=== PATIENT | male | born 1940 | race Caucasian/White ===

== ENCOUNTER 2018-02-05 06:17 | Day surgery (SDC) | payer MEDICARE ==
[2018-01-31 10:19] VITALS: BMI 33.0
[~2018-02-05 06:17] MED LIST: SODIUM CHLORIDE 0.9% 1,000 ML in EMPTY BAG 1 BAG IV ONE
[2018-02-05 06:49] VITALS: TEMP 98.4
[2018-02-05] MEDS ORDERED: LISINOPRIL 20 MG TAB PO STA (07:02)
[2018-02-05] MEDS ORDERED: POTASSIUM CHLORIDE ER 20 MEQ TAB.ER PO STA (07:02)
[2018-02-05] MEDS ORDERED: METOPROLOL TARTRATE 50 MG TAB PO STA (07:02)
[2018-02-05] MEDS ORDERED: CARBIDOPA-LEVODOPA 25-100 MG 1 EACH TAB PO STA (07:02)
[2018-02-05] MEDS ORDERED: CLOPIDOGREL 75 MG TAB PO STA (07:02)
[2018-02-05 07:10] LABS: Basophils % (A) 0 %; Eosinophils # (A) 0.2 k/uL (0-0.7); Eosinophils % (A) 2 %; HCT 32.6 % (39.0-53.0); HGB 10.8 gm/dL (13.0-17.5); Lymphocytes # (A) 2.3 k/uL (1.0-4.8); Lymphocytes % (A) 30 %; MCH 29.5 pg (25.0-35.0); MCHC 33.2 g/dL (31.0-37.0); MCV 88.9 fL (80.0-100.0); Mean Platelet Volume 8.3; Monocytes # (A) 0.5 k/uL (0-1.0); Monocytes % (A) 7 %; Neutrophils # (A) 4.5 k/uL (1.3-7.7); Neutrophils % (A) 58 %; Platelet Count 191 k/uL (150-450); RBC 3.66 m/uL (4.30-5.90); RDW 14.8 % (11.5-15.5); WBC 7.8 k/uL (3.8-10.6)
[2018-02-05] MEDS ORDERED: LISINOPRIL 2.5 MG TAB PO STA (07:11)
[2018-02-05] MEDS ORDERED: ASPIRIN 325 MG TAB ONE (07:16)
[2018-02-05 07:42] LABS: Glucose,Whole Blood 127 mg/dL (75-99)
[2018-02-05 09:21] LABS: Calcium 8.8 mg/dL (8.4-10.2); Potassium 5.4 mmol/L (3.5-5.1)
[2018-02-05] MEDS ORDERED: MIDAZOLAM 2 MG/2 ML VIAL IVP ONE (10:48)
[2018-02-05] MEDS ORDERED: LIDOCAINE 2% SYG (PF) 100 MG/5 ML MISCELLANE ONE (10:52)
[2018-02-05] MEDS ORDERED: IOPAMIDOL-370 100ML BTL INJ ONE (11:20)
[2018-02-05] MEDS ORDERED: SODIUM CHLORIDE 0.9% 1,000 ML IV SCH (11:30)
[2018-02-05 12:53] VITALS: RESP 18
--- NOTE | 2018-02-05 12:55 | IR ---
EXAMINATION TYPE: IR angio extremity LT DATE OF EXAM: 02/05/2018 COMPARISON: NONE HISTORY: Peripheral vascular occlusive disease. Fluoroscopy was provided to the referring clinician. See dictated report from cardiology.
--- NOTE | 2018-02-05 13:30 | LTR ---
DATE OF SERVICE: February 05, 2018 Dear Nathan: Mr. Herson Ortiz underwent left leg angiogram and that revealed critical disease involving the left popliteal artery. I will schedule the patient to undergo a ACCOUNTS PAYABLE SPECIALIST of the left popliteal. Thank you for allowing me to participate in his care and please do not hesitate to call if you have any questions or concerns. Sincerely, LAYNE / REANNA: [phone] /
--- NOTE | 2018-02-05 15:15 | AN ---
ANGIOGRAPHY REPORT DATE OF SERVICE: February 05, 2018 PERFORMING PHYSICIAN: Elder Giles MD, supervisor electronics assembly. PROCEDURE PERFORMED: 1. An abdominal aortogram. 2. Left lower extremity runoff. 3. Selective left SFA and left vzjcq-maz-qlgi angiogram. INDICATION: This is a pleasant 77-year-old gentleman with history of peripheral arterial disease who underwent in the past, balloon angioplasty of the right SFA and he underwent right llvmo-uyu-mrqm amputation. Lately, he has been followed by Dr. Cerrato who diagnosed the patient with critical limb ischemia with nonhealing ulcer on the left malone. The patient was brought today to undergo left leg angiogram. APPROACH: Right common femoral artery. COMPLICATION: None. LEVEL OF SEDATION: Moderate with sedation length of 33 minutes. PROCEDURE DESCRIPTION: After obtaining an informed consent, the patient was brought to the cardiac laborer tanbark. The right common femoral artery was cannulated using micropuncture technique, the micropuncture wire passed easily then I placed a 5-Lithuanian sheath in the right common femoral artery. After that, I did an abdominal aortogram using 5-Lithuanian pigtail catheter. Subsequently I did select the left leg and I placed a 4-Lithuanian catheter in the left SFA where I did left leg angiogram. The procedure was completed without any complication. SELECTIVE PERIPHERAL ANGIOGRAM: 1. The abdominal aorta appeared to be angiographically normal. It bifurcates into right and left common iliac arteries. 2. The left common iliac artery, left external iliac artery, and left common femoral arteries are angiographically normal. 3. The SFA. The left SFA appeared to have mild to moderate disease only. 4. The left popliteal: The left popliteal has diffuse disease up to about 80% to 90%. 5. Left radfo-teb-jspl: The only vessel below the knee, I was able to opacify is the left popliteal, left peroneal, which appeared to have moderate to severe disease in the proximal portion. The AT and PT on the left side are occluded. CONCLUSION: 1. He has severe disease involving the left popliteal artery. 2. Severe mciwb-wio-mfzj disease with only one vessel runoff with peroneal and occluded AT and PT. POSTPROCEDURE MANAGEMENT: BASE LOADER atherectomy and BASE LOADER of the left popliteal with possible BASE LOADER of the left peroneal as well. MMODL / IJN: [id number] /
[2018-02-05 15:39] VITALS: BP 167/72; PULSE 55
== END 2018-02-05 17:04 | disposition home or self-care (01) ==
LOC: CATHCVL 06:17
PROVIDERS: ATTEND Internal Medicine Interventional Cardiology
DX: I70.248 Atherosclerosis of native arteries of left leg with ulceration of other part of lower leg (principal); E11.622 Type 2 diabetes mellitus with other skin ulcer; L97.829 Non-pressure chronic ulcer of other part of left lower leg with unspecified severity; E11.22 Type 2 diabetes mellitus with diabetic chronic kidney disease; N18.4 Chronic kidney disease, stage 4 (severe); Z89.511 Acquired absence of right leg below knee; I25.10 Atherosclerotic heart disease of native coronary artery without angina pectoris; I38 Endocarditis, valve unspecified; E78.5 Hyperlipidemia, unspecified; G20 Parkinson's disease; Z79.02 Long term (current) use of antithrombotics/antiplatelets; Z79.82 Long term (current) use of aspirin; Z79.4 Long term (current) use of insulin; Z79.899 Other long term (current) drug therapy
CPT/HCPCS: 36247; 75625; 75716; 80048; 85025; C1769 ×6; C1894; J2250; J2001; Q9967

== ENCOUNTER 2018-03-07 08:59 | Day surgery (SDC) | payer MEDICARE ==
[2018-03-03 14:29] VITALS: BMI 33.0
[~2018-03-07 08:59] MED LIST changes: +ALPRAZolam 0.25 MG TAB PO PRN; +ASPIRIN 325 MG TAB PO STA
[2018-03-07 10:06] VITALS: BP 166/81; PULSE 71; RESP 16; TEMP 98
[2018-03-07 10:06] LABS: Basophils % (A) 0 %; Eosinophils # (A) 0.2 k/uL (0-0.7); Eosinophils % (A) 2 %; HCT 35.2 % (39.0-53.0); HGB 11.2 gm/dL (13.0-17.5); Lymphocytes % (A) 24 %; MCH 28.4 pg (25.0-35.0); MCHC 31.8 g/dL (31.0-37.0); MCV 89.3 fL (80.0-100.0); Mean Platelet Volume 8.5; Monocytes # (A) 0.6 k/uL (0-1.0); Monocytes % (A) 8 %; Neutrophils % (A) 62 %; Platelet Count 199 k/uL (150-450); RBC 3.94 m/uL (4.30-5.90); RDW 14.7 % (11.5-15.5); WBC 8.1 k/uL (3.8-10.6)
[2018-03-07] MEDS ORDERED: SODIUM CHLORIDE 0.9% 1,000 ML IV ONE (10:10)
[2018-03-07] MEDS ORDERED: INSULIN ASPART 100 UNIT/ML 1 ML 10 ML VIAL SQ ONE (10:20)
[2018-03-07 10:21] LABS: Calcium 8.8 mg/dL (8.4-10.2)
[2018-03-07 10:34] LABS: Glucose,Whole Blood 269 mg/dL (75-99)
[2018-03-07] MEDS ORDERED: SODIUM POLYSTYRENE SULFONATE 15 GM/60 ML BOTTLE PO STA (10:42)
== END 2018-03-07 13:12 | disposition home or self-care (01) ==
LOC: CATHCVL 08:59
PROVIDERS: ATTEND Internal Medicine Interventional Cardiology
DX: I99.8 Other disorder of circulatory system (principal); E87.5 Hyperkalemia; Z53.8 Procedure and treatment not carried out for other reasons
CPT/HCPCS: 80048; 85025

== ENCOUNTER → 2018-03-08 | Outpatient (CLI) | payer MEDICARE | END | disposition home or self-care (01) | LOC: LABWHC1 10:48 | PROVIDERS: ATTEND Nurse Practitioner Family | DX: E87.5 Hyperkalemia (principal) | CPT/HCPCS: 36415; 84132 ==

== ENCOUNTER 2018-04-07 09:10 | Day surgery (SDC) | payer MEDICARE ==
[~2018-04-07 09:10] MED LIST changes: -ALPRAZolam 0.25 MG TAB PO PRN; +ASPIRIN 325 MG TAB PO SCH; -ASPIRIN 325 MG TAB PO STA; -SODIUM CHLORIDE 0.9% 1,000 ML in EMPTY BAG 1 BAG IV ONE
[2018-04-07] MEDS ORDERED: SODIUM CHLORIDE 0.9% 1,000 ML IV ONE (09:30)
[2018-04-07 09:50] LABS: Glucose,Whole Blood 121 mg/dL (75-99)
[2018-04-07] MEDS ORDERED: SODIUM CHLORIDE 0.9% 1,000 ML in EMPTY BAG 1 BAG IV ONE (10:00)
[2018-04-07] MEDS ORDERED: CARBIDOPA-LEVODOPA 25-100 MG 1 EACH TAB PO STA (10:00)
[2018-04-07] MEDS: METOPROLOL TARTRATE 50 MG TAB PO STA ×2 (10:07→16:55)
[2018-04-07] MEDS ORDERED: LIDOCAINE 2% INJ 20 MG/ML SQ ONE (11:32)
[2018-04-07] MEDS ORDERED: MIDAZOLAM 2 MG/2 ML VIAL IVP ONE (11:33)
[2018-04-07] MEDS ORDERED: HEPARIN SODIUM 1,000 UN/ML (10ML VL) IV ONE ×2 (11:35→12:24)
[2018-04-07] MEDS ORDERED: fentaNYL (PF) 50 MCG/ML 2 ML AMP IVP ONE (11:50)
[2018-04-07] MEDS ORDERED: NITROGLYCERIN 1000MCG/10ML SYRINGE INTRAARTER ONE (12:28)
[2018-04-07] MEDS ORDERED: niCARdipine Syringe (1,000 mcg/10 mL) INTRAARTER ONE (12:28)
[2018-04-07] MEDS ORDERED: CLOPIDOGREL 75 MG TAB PO ONE (12:43)
[2018-04-07] MEDS ORDERED: IOPAMIDOL-250 100ML BTL INTRAARTER ONE (12:44)
[2018-04-07] MEDS ORDERED: SODIUM CHLORIDE 0.9% 1,000 ML IV SCH (12:45)
--- NOTE | 2018-04-07 14:22 | LTR ---
DATE OF SERVICE: 04/07/2018. Dear Dr. Jimenez: Mr. Herson Ortiz underwent successful atherectomy and balloon angioplasty of the left popliteal artery with good angiographic results and without any complication. I want to thank you for allowing us to participate in his care and please do not hesitate to call if you have any question or concerns. Sincerely, LAYNE / FATEMEHN: [phone] /
--- NOTE | 2018-04-07 14:37 | AN ---
ANGIOGRAPHY REPORT . DATE OF SERVICE: 04/07/2018 PERFORMING PHYSICIAN: Elder Giles MD. PROCEDURE PERFORMED: 1. Selective left xjbek-fjf-qzfd angiogram. 2. Selective left popliteal angiogram. 3. Selective left SFA angiogram. 4. Selective right common femoral artery angiogram. 5. Successful atherectomy of the left popliteal using the TurboHawk device with extraction of plaque. 6. Successful balloon angioplasty of the left popliteal using 4.0 x 60 mm drug-coated balloon with good angiographic results and reduction of stenosis from 90% to 0% and without any complication. INDICATION: This is a pleasant 77-year-old gentleman who sees Dr. Cerrato as well as I did see him in the past, who was struggling with critical limb ischemia of the left foot. He underwent a peripheral angiogram and that showed severe peripheral arterial disease, with critical left popliteal and severe hovso-ubt-mxvj disease with occluded AT and PT. He was brought today to undergo an intervention of the left popliteal. APPROACH: Right common femoral artery. COMPLICATION: None. LEVEL OF SEDATION: Moderate with sedation length of 1 hour and 2 minutes. PROCEDURE DESCRIPTION: After obtaining an informed consent, the patient was brought to cardiac veterinary laboratory diagnostician. The right common femoral artery was cannulated using micropuncture technique, the micropuncture wire passed easily. Then I placed a 6-Martiniquais sheath 11 cm in the right common femoral artery. At that point, anticoagulation was initiated using heparin and the patient was given a total of 9000 units of heparin IV. Subsequently I did select the left SFA using an 0.035 Glidewire with a 5-Martiniquais rim catheter. I attempted selecting the left SFA using an 0.035 advantage Glidewire, but because of the bifurcation of the aorta was so acute, I could not advance the [place] Advantage because of its stiffness and I was able to advance an 035 regular Glidewire. After that, I did exchange my 0.035 Glidewire into an 0.035 advantage Glidewire, Quick-Cross catheter. After that, I did exchange my 11 cm sheath into 55 cm 6- Martiniquais Raabe the sheath and the 6-Martiniquais Raabe sheath tip was positioned in the left in the left proximal SFA. I did selective left tgkas-hhd-lxlr angiogram, selective left popliteal angiogram and selective left SFA angiogram. It did revealed critical left popliteal disease with severe dzvgg-amm-cwko disease as well. At that point, I was attempted crossing the lesion in the left popliteal using [address] wire and I was unable. Then 014 whisper J and I was unable. Then I was able to cross it using an 018 wakefield tip Glidewire with the backup support of .018 CXI catheter. Subsequently I did exchange my 018 wire into 0.014 wire which was the whisper wire using an 018 CXI catheter. After that I did atherectomy of the left popliteal using the TurboHawk device with extraction of plaque. After that I did balloon angioplasty using 4.0 x 60 mm drug- coated balloon which was prepped and advanced over the wire then it was inflated under 12 atmospheres for 1 minute. The following angiogram showed excellent angiographic results and the procedure was completed without any complication. POSTPROCEDURE MANAGEMENT: 1. Dual anti-platelet therapy. 2. Risk factors modifications. 3. Follow up with the patient. MMSANDY / IJN: [id number] /
[2018-04-07] MEDS ORDERED: hydrALAZINE HCL 20 MG/ML 1 ML VIAL IVP PRN (15:36)
[2018-04-07 16:08] VITALS: BMI 33.8
[2018-04-07] MEDS ORDERED: ATROPINE SULFATE 0.1 MG/ML 10ML SYRINGE ONE (17:02)
[2018-04-07] MEDS: MORPHINE SULFATE 2 MG/ML SYRINGE IVP PRN ×2 (18:33→22:19)
[2018-04-07] MEDS: INSULIN NPH/REG INSULIN 70/30 300 UNIT/3 ML VIAL SQ SCH (19:55)
[2018-04-07 20:47] LABS: Glucose,Whole Blood 136 mg/dL (75-99)
[2018-04-07] MEDS ORDERED: ATORVASTATIN 80 MG TAB PO SCH (21:00)
[2018-04-07] MEDS: CARBIDOPA-LEVODOPA 25-100 MG 1 EACH TAB PO SCH ×2 (21:32→21:36)
[2018-04-07] MEDS: GABAPENTIN 400 MG CAP PO SCH ×2 (21:33→21:36)
[2018-04-07] MEDS: TORSEMIDE 20 MG TAB PO SCH (21:33)
[2018-04-07 22:09] VITALS: RESP 18
[2018-04-08 06:16] LABS: Glucose,Whole Blood 180 mg/dL (75-99)
[2018-04-08] MEDS: INSULIN NPH/REG INSULIN 70/30 300 UNIT/3 ML VIAL SQ SCH (06:47)
[2018-04-08 07:06] LABS: Potassium 5.4 mmol/L (3.5-5.1)
[2018-04-08 08:39] LABS: Basophils % (A) 0 %; Eosinophils # (A) 0.1 k/uL (0-0.7); Eosinophils % (A) 2 %; HCT 35.1 % (39.0-53.0); HGB 11.7 gm/dL (13.0-17.5); Lymphocytes # (A) 1.6 k/uL (1.0-4.8); Lymphocytes % (A) 19 %; MCH 28.9 pg (25.0-35.0); MCHC 33.3 g/dL (31.0-37.0); MCV 86.7 fL (80.0-100.0); Mean Platelet Volume 10.2; Monocytes # (A) 0.7 k/uL (0-1.0); Monocytes % (A) 8 %; Neutrophils # (A) 5.7 k/uL (1.3-7.7); Neutrophils % (A) 68 %; Platelet Count 173 k/uL (150-450); RBC 4.04 m/uL (4.30-5.90); RDW 14.7 % (11.5-15.5); WBC 8.4 k/uL (3.8-10.6)
[2018-04-08] MEDS ORDERED: ASPIRIN 325 MG TAB PO SCH (09:00)
[2018-04-08] MEDS ORDERED: FAMOTIDINE 20 MG TAB PO SCH (09:00)
[2018-04-08] MEDS ORDERED: METOPROLOL TARTRATE 50 MG TAB PO SCH (09:00)
[2018-04-08] MEDS ORDERED: DOCUSATE 100 MG CAP PO SCH (09:00)
[2018-04-08] MEDS ORDERED: CLOPIDOGREL 75 MG TAB PO SCH (09:00)
[2018-04-08] MEDS: GABAPENTIN 400 MG CAP PO SCH (09:05)
[2018-04-08] MEDS: TORSEMIDE 20 MG TAB PO SCH (09:05)
[2018-04-08] MEDS: CARBIDOPA-LEVODOPA 25-100 MG 1 EACH TAB PO SCH (09:05)
--- NOTE | 2018-04-08 09:23 | DS ---
DISCHARGE SUMMARY ADMISSION DATE: April 07, 2018 DISCHARGE DATE: April 08, 2018 BRIEF HISTORY: This is a pleasant 77-year-old gentleman who was diagnosed with critical limb ischemia and nonhealing ulcer involving the left malone. He underwent a peripheral angiogram a few weeks ago and that revealed critical lesion involving the left popliteal. He was admitted yesterday and underwent successful atherectomy and balloon angioplasty of the left popliteal with reduction of stenosis from 90% to 0%. I did perform a drug coated balloon on him. The procedure was performed from the right groin. The right groin is bruised with a very small hematoma. The patient is going to be discharged home on dual anti-platelet therapy and statin and I will follow up with him in a week in the office. MMSANDY / REANNA: [phone] /
[2018-04-08 09:36] VITALS: BP 134/61; PULSE 68; TEMP 96.3
[2018-04-08] MEDS ORDERED: FOLIC ACID 1 MG TAB PO SCH (12:00)
== END 2018-04-08 11:39 | disposition home or self-care (01) ==
LOC: CATHCVL 09:10 → 6SEL 12:32 → CATHCVL 04-08 11:39
PROVIDERS: ATTEND Internal Medicine Interventional Cardiology
DX: E11.51 Type 2 diabetes mellitus with diabetic peripheral angiopathy without gangrene (principal); I99.8 Other disorder of circulatory system; E78.5 Hyperlipidemia, unspecified; Z79.02 Long term (current) use of antithrombotics/antiplatelets; Z79.4 Long term (current) use of insulin; Z79.82 Long term (current) use of aspirin; Z79.899 Other long term (current) drug therapy
CPT/HCPCS: 37225; 85347; 80048; 85025; C1894 ×2; C1769 ×7; C1887; C1714; C2623; J2001; J2250; J0360; J3010; J2270; J1644; Q9966

== ENCOUNTER 2018-11-19 05:35 | Inpatient (IN) | payer MEDICARE ==
--- NOTE | 2018-11-19 06:19 | ED ---
Abdominal Pain HPI - General Chief Complaint: Abdominal Pain Stated Complaint: Abdominal Pain Time Seen by Provider: 11/19/18 05:57 Source: patient, EMS Mode of arrival: EMS Limitations: no limitations - History of Present Illness MD Complaint: abdominal pain Onset/Timin -: days(s) Location: epigastric Radiation: none Migration to: no migration Severity: moderate Quality: dull Consistency: constant Improves With: nothing Worsens With: nothing Associated Symptoms: denies other symptoms - Related Data Home Medications Medication Instructions Recorded Confirmed Aspirin 325 mg PO DAILY 07/29/15 07/15/18 Atorvastatin [Lipitor] 80 mg PO HS 07/29/15 07/15/18 Carbidopa-Levodopa 25-100 mg 1 each PO TID 07/29/15 07/15/18 [Sinemet 25-100 mg] Clopidogrel Bisulfate [Clopidogrel] 75 mg PO QAM 07/29/15 07/15/18 Gabapentin 400 mg PO TID 07/29/15 07/15/18 Metoprolol Tartrate 50 mg PO QAM 07/29/15 07/15/18 Insulin NPH Hum/Reg Insulin Hm 36 unit SQ AC-BID 01/31/18 07/15/18 [NovoLIN 70-30 100 UNIT/ML VIAL] Torsemide [Demadex] 20 mg PO BID 01/31/18 07/15/18 Docusate [Colace] 100 mg PO DAILY 04/07/18 07/15/18 Famotidine [Pepcid] 20 mg PO DAILY 04/07/18 07/15/18 Folic Acid 1 mg PO DAILY 04/07/18 07/15/18 Allopurinol [Zyloprim] 100 mg PO DAILY 07/08/18 07/15/18 Carbidopa-Levodopa 25-100 mg 1 each PO TID 07/08/18 07/15/18 [Sinemet 25-100] Clopidogrel [Plavix] 75 mg PO DAILY 07/08/18 07/15/18 Ergocalciferol (Vitamin D2) 50,000 unit PO QMONTH 07/08/18 07/15/18 [Vitamin D2] Multivitamin [Men's Multi-Vitamin] 1 each PO DAILY 07/08/18 07/15/18 metFORMIN HCL [Glucophage] 500 mg PO DAILY 07/08/18 07/15/18 Allergies Allergy/AdvReac Type Severity Reaction Status Date / Time No Known Allergies Allergy Verified 07/15/18 13:39 Review of Systems ROS Statement: Those systems with pertinent positive or pertinent negative responses have been documented in the HPI. ROS Other: All systems not noted in ROS Statement are negative. Past Medical History Past Medical History: CVA/TIA, Diabetes Mellitus, Hyperlipidemia, Hypertension, Musculoskeletal Disorder, Neurologic Disorder, Renal Disease, Vascular Disorder Additional Past Medical History / Comment(s): CVA-pt states no deficits, TIA-R ocular nerve palsy, R third nerve palsy, parkinson's,. HIGH POTASSIUM 03/07/18- POTASSIUM PILL DISCONTINUED History of Any Multi-Drug Resistant Organisms: None Reported Past Surgical History: Coronary Bypass/CABG, Heart Catheterization, Tonsillectomy Additional Past Surgical History / Comment(s): colonoscopy, bilateral cataract removal, right below knee amputation, valve replacement & triple bypass in [facility] 4 yrs. ago,aortogram Past Anesthesia/Blood Transfusion Reactions: No Reported Reaction Additional Past Anesthesia/Blood Transfusion Reaction / Comment(s): no hx blood transfusion Past Psychological History: No Psychological Hx Reported Smoking Status: Never smoker - Past Family History Father Family Medical History: Coronary Artery Disease (CAD) Additional Family Medical History / Comment(s): Father had CABG. He at age 93yrs. Mother Family Medical History: Diabetes Mellitus Additional Family Medical History / Comment(s): Mother at age 83 yrs. General Exam Limitations: no limitations Course Vital Signs 11/19/18 11/19/18 05:39 06:44 Temperature 99.5 F Pulse Rate 93 85 Respiratory 18 18 Rate Blood Pressure 166/108 148/67 O2 Sat by Pulse 94 L 96 Oximetry Medical Decision Making - Lab Data Result diagrams: 11/19/18 05:45 11/19/18 05:45 Lab Results 11/19/18 11/19/18 11/19/18 Range/Units 05:45 05:45 05:45 WBC 13.2 H (3.8-10.6) k/uL RBC 3.93 L (4.30-5.90) m/uL Hgb 11.8 L (13.0-17.5) gm/dL Hct 36.2 L (39.0-53.0) % MCV 92.1 (80.0-100.0) fL MCH 30.0 (25.0-35.0) pg MCHC 32.5 (31.0-37.0) g/dL RDW 14.8 (11.5-15.5) % Plt Count 205 (150-450) k/uL Neutrophils % 82 % Lymphocytes % 10 % Monocytes % 5 % Eosinophils % 2 % Basophils % 0 % Neutrophils # 10.8 H (1.3-7.7) k/uL Lymphocytes # 1.3 (1.0-4.8) k/uL Monocytes # 0.7 (0-1.0) k/uL Eosinophils # 0.2 (0-0.7) k/uL Basophils # 0.0 (0-0.2) k/uL Sodium 142 (137-145) mmol/L Potassium 5.0 (3.5-5.1) mmol/L Chloride 107 (98-107) mmol/L Carbon Dioxide 25 (22-30) mmol/L Anion Gap 10 mmol/L BUN 17 (9-20) mg/dL Creatinine 1.42 H (0.66-1.25) mg/dL Est GFR (CKD-EPI)AfAm 54 (>60 ml/min/1.73 sqM) Est GFR (CKD-EPI)NonAf 47 (>60 ml/min/1.73 sqM) Glucose 184 H (74-99) mg/dL Plasma Lactic Acid Rey 1.6 (0.7-2.0) mmol/L Calcium 9.1 (8.4-10.2) mg/dL Total Bilirubin 0.7 (0.2-1.3) mg/dL AST 15 L (17-59) U/L ALT 20 L (21-72) U/L Alkaline Phosphatase 135 H (38-126) U/L Troponin I (0.000-0.034) ng/mL NT-Pro-B Natriuret Pep pg/mL Total Protein 6.6 (6.3-8.2) g/dL Albumin 3.7 (3.5-5.0) g/dL Amylase <30 L (30-110) U/L Lipase 86 (23-300) U/L 11/19/18 11/19/18 Range/Units 05:45 05:45 WBC (3.8-10.6) k/uL RBC (4.30-5.90) m/uL Hgb (13.0-17.5) gm/dL Hct (39.0-53.0) % MCV (80.0-100.0) fL MCH (25.0-35.0) pg MCHC (31.0-37.0) g/dL RDW (11.5-15.5) % Plt Count (150-450) k/uL Neutrophils % % Lymphocytes % % Monocytes % % Eosinophils % % Basophils % % Neutrophils # (1.3-7.7) k/uL Lymphocytes # (1.0-4.8) k/uL Monocytes # (0-1.0) k/uL Eosinophils # (0-0.7) k/uL Basophils # (0-0.2) k/uL Sodium (137-145) mmol/L Potassium (3.5-5.1) mmol/L Chloride (98-107) mmol/L Carbon Dioxide (22-30) mmol/L Anion Gap mmol/L BUN (9-20) mg/dL Creatinine (0.66-1.25) mg/dL Est GFR (CKD-EPI)AfAm (>60 ml/min/1.73 sqM) Est GFR (CKD-EPI)NonAf (>60 ml/min/1.73 sqM) Glucose (74-99) mg/dL Plasma Lactic Acid Rey (0.7-2.0) mmol/L Calcium (8.4-10.2) mg/dL Total Bilirubin (0.2-1.3) mg/dL AST (17-59) U/L ALT (21-72) U/L Alkaline Phosphatase (38-126) U/L Troponin I 0.014 (0.000-0.034) ng/mL NT-Pro-B Natriuret Pep 5830 pg/mL Total Protein (6.3-8.2) g/dL Albumin (3.5-5.0) g/dL Amylase (30-110) U/L Lipase (23-300) U/L - EKG Data EKG shows normal: sinus rhythm (Rate 85 bpm), axis (normal), intervals (ID interval 252 ms, prolonged consistent with first-degree AV block. QRS duration 122 ms, prolonged, consistent with intraventricular conduction delay. QTC 461 ms, normal), QRS complexes (Intraventricular conduction delay) Interpretation: nonspecific ST-T wave changes Disposition Clinical Impression: Acute exacerbation of CHF (congestive heart failure) Disposition: ADMITTED IP TO THIS HOSP Condition: Poor Is patient prescribed a controlled substance at d/c from ED?: No Referrals: Nathan Jimenez DO [Primary Care Provider] - 1-2 days
[2018-11-19] MEDS ORDERED: MORPHINE SULFATE 4 MG/ML SYRINGE IV STA (06:20)
[2018-11-19 06:21] LABS: Basophils % (A) 0 %; Eosinophils # (A) 0.2 k/uL (0-0.7); Eosinophils % (A) 2 %; HCT 36.2 % (39.0-53.0); HGB 11.8 gm/dL (13.0-17.5); Lymphocytes # (A) 1.3 k/uL (1.0-4.8); Lymphocytes % (A) 10 %; MCHC 32.5 g/dL (31.0-37.0); MCV 92.1 fL (80.0-100.0); Mean Platelet Volume 8.5; Monocytes # (A) 0.7 k/uL (0-1.0); Monocytes % (A) 5 %; Neutrophils # (A) 10.8 k/uL (1.3-7.7); Neutrophils % (A) 82 %; Platelet Count 205 k/uL (150-450); RBC 3.93 m/uL (4.30-5.90); RDW 14.8 % (11.5-15.5); WBC 13.2 k/uL (3.8-10.6)
[2018-11-19 06:30] LABS: ALT 20 U/L (21-72); AST 15 U/L (17-59); Albumin 3.7 g/dL (3.5-5.0); Alkaline Phosphatase 135 U/L (38-126); Amylase <30 U/L (30-110); Anion Gap 10 mmol/L; Blood Urea Nitrogen 17 mg/dL (9-20); Calcium 9.1 mg/dL (8.4-10.2); Carbon Dioxide 25 mmol/L (22-30); Chloride 107 mmol/L (98-107); Glucose 184 mg/dL (74-99); Lipase 86 U/L (23-300); Sodium 142 mmol/L (137-145); Total Bilirubin 0.7 mg/dL (0.2-1.3); Total Protein 6.6 g/dL (6.3-8.2)
[2018-11-19] MEDS: FUROSEMIDE 10 MG/ML 4 ML VIAL IV SCH ×2 (07:41→20:49)
--- NOTE | 2018-11-19 07:48 | CT ---
EXAMINATION TYPE: CT abdomen pelvis wo con DATE OF EXAM: 11/19/2018 COMPARISON: None HISTORY: Abd pain CT DLP: 772.3 mGycm Automated exposure control for dose reduction was used. TECHNIQUE: Helical acquisition of images was performed from the lung bases through the pelvis. FINDINGS: LUNG BASES: Heart is enlarged and there is coronary artery calcification. Subsegmental changes involv ing the lung bases suggestive of atelectasis. Suggestion of an epicardial. LIVER/GB: Gallbladder is prominent in size correlate for gallbladder hydrops. PANCREAS: No significant abnormality is seen. SPLEEN: No significant abnormality is seen. ADRENALS: No significant abnormality is seen. KIDNEYS: There is cortical loss involving the kidneys correlate for chronic renal disease. No hydrone phrosis or nephrolithiasis. ADENOPATHY: None visualized. OSSEOUS STRUCTURES: Hypertrophic and degenerative change of bowel. BOWEL: Bowel gas pattern nonspecific with no diagnostic obstruction. Lack of oral contrast limits as sessment of bowel. Could not exclude a degree of wall thickening involving stomach. There appears to be a large duodenal diverticulum involving the third portion duodenum. OTHER: Atherosclerotic change of the vasculature. Aorta of normal caliber. Bladder wall is thickened correlate for cystitis. Small fat-containing bilateral inguinal hernias. IMPRESSION: 1. Large duodenal diverticulum third portion duodenum. 2. Chronic medical renal disease 3. Cardiomegaly, coronary artery calcification and basilar atelectasis or scar favored over infiltrat e 4. Correlate for cystitis. 5. gallbladder hydrops without evidence of gallstone. Could not exclude a small amount of pericholecy stic fluid. Recommend ultrasound. 6. gastric wall thickening likely related to incomplete distention. Correlate clinically to exclude m ild gastritis.
[2018-11-19] MEDS ORDERED: METOPROLOL TARTRATE 50 MG TAB PO SCH (09:00)
[2018-11-19] MEDS ORDERED: CLOPIDOGREL 75 MG TAB PO SCH (09:00)
--- NOTE | 2018-11-19 09:37 | US ---
EXAMINATION TYPE: US abdomen limited DATE OF EXAM: 11/19/2018 COMPARISON: CT 11/19/2018 CLINICAL HISTORY: attention RUQ. Difficult and limited exam due to overlying bowel, patient body habi tus, and patient's inability to cooperate for exam. Could not hold his breath EXAM MEASUREMENTS: Liver Length: 15.5 cm Gallbladder Wall: 0.6 cm CBD: 0.5 cm Right Kidney: 9.8 x 5.4 x 4.7 cm Pancreas: Obscured by bowel gas Liver: Heterogeneous. Difficult and limited visualization Gallbladder: Hydropic. Small amount of pericholecystic fluid visualized Evidence for sonographic Joshua's sign: No CBD: wnl as visualized, limited due to bowel gas Right Kidney: Nodular contour IMPRESSION: 1. The gallbladder is hydropic with a small amount of pericholecystic fluid. Gallbladder wall measure s 6 mm. Correlate for cholecystitis. 2. Liver is heterogeneous correlate for hepatic steatosis or hepatitis.
[2018-11-19 10:11] LABS: Appearance,Urine Clear (Clear); Bilirubin,Urine Negative (Negative); Blood,Urine Negative (Negative); Color,Urine Light Yellow; Glucose,Urine (UA) Negative (Negative); Ketones,Urine Negative (Negative); Leukocyte Esterase,Urine Negative (Negative); Nitrite,Urine Negative (Negative); Protein,Urine Trace (Negative); Specific Gravity,Urine 1.009 (1.001-1.035); Urobilinogen,Urine <2.0 mg/dL (<2.0)
[2018-11-19] MEDS: INSULN ASP PRT/INSULIN ASPART 100 UNIT/ML 10 ML VIAL SQ SCH ×2 (11:39→19:27)
[2018-11-19] MEDS: ALLOPURINOL 100 MG TAB PO SCH (11:39)
[2018-11-19] MEDS: CLOPIDOGREL 75 MG TAB PO SCH (11:39)
[2018-11-19] MEDS: ASPIRIN 325 MG TAB PO SCH (11:39)
[2018-11-19] MEDS: GABAPENTIN 400 MG CAP PO SCH ×3 (11:40→20:47)
[2018-11-19] MEDS: metFORMIN 500 MG TAB PO SCH (11:40)
[2018-11-19] MEDS: TORSEMIDE 20 MG TAB PO SCH ×2 (11:40→20:44)
[2018-11-19] MEDS: FAMOTIDINE 20 MG TAB PO SCH (11:40)
[2018-11-19] MEDS: DOCUSATE 100 MG CAP PO SCH (11:40)
[2018-11-19 16:19] LABS: Glucose,Whole Blood 64 mg/dL (75-99)
[2018-11-19 17:36] LABS: Glucose,Whole Blood 83 mg/dL (75-99)
[2018-11-19] MEDS ORDERED: HEPARIN SODIUM,PORCINE 5,000 UNIT/ML 1 ML VIAL IV PRN (20:27)
[2018-11-19] MEDS: NITROGLYCERIN OINT 1 INCH/GM PACKET TOPICAL SCH ×2 (20:44→23:13)
[2018-11-19] MEDS: ATORVASTATIN 80 MG TAB PO SCH (20:47)
[2018-11-19 20:58] LABS: Glucose,Whole Blood 113 mg/dL (75-99)
[2018-11-19 21:13] LABS: Basophils % (A) 0 %; Eosinophils # (A) 0.2 k/uL (0-0.7); Eosinophils % (A) 2 %; HCT 31.9 % (39.0-53.0); HGB 10.5 gm/dL (13.0-17.5); Lymphocytes # (A) 1.2 k/uL (1.0-4.8); Lymphocytes % (A) 12 %; MCH 30.5 pg (25.0-35.0); MCV 92.6 fL (80.0-100.0); Mean Platelet Volume 8.6; Monocytes # (A) 0.6 k/uL (0-1.0); Monocytes % (A) 6 %; Neutrophils # (A) 8.1 k/uL (1.3-7.7); Neutrophils % (A) 79 %; Platelet Count 187 k/uL (150-450); RBC 3.44 m/uL (4.30-5.90); RDW 14.5 % (11.5-15.5); WBC 10.3 k/uL (3.8-10.6)
--- NOTE | 2018-11-19 21:18 | P.HPIM ---
History of Present Illness H&P Date: 11/19/18 Chief Complaint: Abdominal pain and chest pain Patient is a 78-year-old male with a known history of diabetes type 2, peripheral vascular disease, right BKA, coronary artery disease history of valve replacement and triple bypass in [facility] 4 years ago, hypertension, hype rlipidemia, chronic renal disease and other multiple medical problems including history obesity morbid and see ER with complaints of chest pain acting up again. Pain is mainly in the midsternal and epigastric region. Patient felt very weak and could not stand up. Patient also having increased left lower activity swelling as well. Patient also was having worsening shortness of breath which made him come to the hospital. Patient follows with Dr. Donald per his peripheral vascular disease. Otherwise patient denied any complaints of cough or sputum production. No fever chills. No recent illnesses otherwise. No nausea vomiting diarrhea. Patient is hard of hearing and is also poor historian. 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 Chronic renal disease. Cardiomegaly, coronary calcification and basilar atelectasis or scar favor over infiltrate. Correlate for cystitis. Gallbladder hydrops without evidence of gallstones. Gastric wall thickening likely related to incomplete distention. Correlate c linically for mild gastritis. Troponin 0.014 and 0.173 BNP 5830 WBC 13.2 UA negative Ultrasound of the abdomen showed gallbladder is hydropic with a small amount of pericholecystic fluid. Gallbladder wall measures 6 mm. Correlate for cholecystitis. Review of Systems Constitutional: Patient denies any fever or chills . No generalized weakness or weight loss. Abdomen: Patient denied nausea vomiting and diarrhea and abdominal pain. Cardiovascular: Patient does have chest pain and shortness of breath. Increased leg swelling.. Respiratory: patient denied any cough is from production. No shortness of breath Neurologic: Patient denied any numbness or tingling headache. Musculoskeletal: Patient denies any complaints of joint swelling or deformity. Skin: Negative Psychiatric: Negative Endocrine: No heat or cold intolerance. No recent weight gain. Genitourinary: No dysuria or hematuria. All other 14 point ROS negative except the above Past Medical History Past Medical History: CVA/TIA, Diabetes Mellitus, Hyperlipidemia, Hypertension, Musculoskeletal Disorder, Neurologic Disorder, Renal Disease, Vascular Disorder Additional Past Medical History / Comment(s): CVA-pt states no deficits, TIA-R ocular nerve palsy, R third nerve palsy, parkinson's,. HIGH POTASSIUM 03/07/18- POTASSIUM PILL DISCONTINUED History of Any Multi-Drug Resistant Organisms: None Reported Past Surgical History: Coronary Bypass/CABG, Heart Catheterization, Tonsillectomy Additional Past Surgical History / Comment(s): colonoscopy, bilateral cataract removal, right below knee amputation, valve replacement & triple bypass in [place] 4 yrs. ago,aortogram Past Anesthesia/Blood Transfusion Reactions: No Reported Reaction Additional Past Anesthesia/Blood Transfusion Reaction / Comment(s): no hx blood transfusion Past Psychological History: No Psychological Hx Reported Smoking Status: Never smoker - Past Family History Father Family Medical History: Coronary Artery Disease (CAD) Additional Family Medical History / Comment(s): Father had CABG. He at age 93yrs. Mother Family Medical History: Diabetes Mellitus Additional Family Medical History / Comment(s): Mother at age 83 yrs. Medications and Allergies Home Medications Medication Instructions Recorded Confirmed Type Aspirin 325 mg PO DAILY 07/29/15 11/19/18 History Atorvastatin [Lipitor] 80 mg PO HS 07/29/15 11/19/18 History Carbidopa-Levodopa 25-100 mg 1 tab PO TID 07/29/15 11/19/18 History [Sinemet 25-100 mg] Gabapentin 400 mg PO TID 07/29/15 11/19/18 History Metoprolol Tartrate 50 mg PO QAM 07/29/15 11/19/18 History Insulin NPH Hum/Reg Insulin Hm 50 unit SQ AC-BID 01/31/18 11/19/18 History [NovoLIN 70-30 100 UNIT/ML VIAL] Torsemide [Demadex] 20 mg PO BID 01/31/18 11/19/18 History Famotidine [Pepcid] 20 mg PO DAILY 04/07/18 11/19/18 History Allopurinol [Zyloprim] 100 mg PO DAILY 07/08/18 11/19/18 History Clopidogrel [Plavix] 75 mg PO DAILY 07/08/18 11/19/18 History Ergocalciferol (Vitamin D2) 50,000 unit PO Q30D 07/08/18 11/19/18 History [Vitamin D2] Multivitamin [Men's Multi-Vitamin] 1 each PO DAILY 07/08/18 11/19/18 History Calcitriol [Rocaltrol] 0.25 mcg PO Q7D 11/19/18 11/19/18 History Calcium Acetate [Phoslo] 667 mg PO DAILY 11/19/18 11/19/18 History Allergies Allergy/AdvReac Type Severity Reaction Status Date / Time No Known Allergies Allergy Verified 11/19/18 07:52 Physical Exam Vitals: Vital Signs Temp Pulse Resp BP Pulse Ox 11/19/18 10:00 125/98 11/19/18 08:50 84 18 135/60 93 L 11/19/18 08:40 95 17 135/60 94 L 11/19/18 08:30 87 16 152/78 94 L 11/19/18 08:20 98 17 152/78 94 L 11/19/18 07:40 96 17 142/90 95 11/19/18 06:44 85 18 148/67 96 11/19/18 05:39 99.5 F 93 18 166/108 94 L Intake and Output 11/18/18 11/19/18 11/19/18 22:59 06:59 14:59 Other: Weight 90.718 kg PHYSICAL EXAMINATION: Patient is lying in the bed comfortably, no acute distress, awake alert and oriented. Hard of hearing. HEENT: Normocephalic. Neck is supple. Pupils reactive. Nostrils clear. Oral cavity is moist. Ears reveal no drainage. Neck reveals no JVD, carotid bruits, or thyromegaly. CHEST EXAMINATION: Trachea is central. Symmetrical expansion. Bibasilar diminished air entry and scattered rhonchi. No wheezing.. CARDIAC: Normal S1, S2 with no gallops. No murmurs ABDOMEN: Soft. Bowel sounds normal. No organomegaly. No abdominal bruits. Extremities: Right BKA. Left leg 3+ edema. No clubbing or cyanosis Neurologically awake, alert, oriented x2-3 with well-coordinated movements. Hard of hearing. No focal deficits noted Skin: No rash or skin lesions. Psychiatric: Coperative. Nonsuicidal Musculoskeletal: No joint swelling or deformity. Normal range of motion. Results CBC & Chem 7: 11/19/18 05:45 11/19/18 05:45 Labs: Abnormal Lab Results - Last 24 Hours (Table) 11/19/18 11/19/18 11/19/18 Range/Units 05:45 05:45 09:59 WBC 13.2 H (3.8-10.6) k/uL RBC 3.93 L (4.30-5.90) m/uL Hgb 11.8 L (13.0-17.5) gm/dL Hct 36.2 L (39.0-53.0) % Neutrophils # 10.8 H (1.3-7.7) k/uL Creatinine 1.42 H (0.66-1.25) mg/dL Glucose 184 H (74-99) mg/dL AST 15 L (17-59) U/L ALT 20 L (21-72) U/L Alkaline Phosphatase 135 H (38-126) U/L Amylase <30 L (30-110) U/L Urine Protein Trace H (Negative) Thrombosis Risk Factor Assmnt - DVT/VTE Prophylaxis DVT/VTE Prophylaxis: Pharmacologic Prophylaxis ordered Assessment and Plan Assessment: Acute non-ST elevated CT with troponin trending up Acute CHF. Ejection fraction unknown. Hydropic gallbladder. Acute cholecystitis can't be excluded.. History of coronary artery disease and CABG and valve replacement 4 years ago Parkinson's disease Obesity with BMI 32.3 Chronic kidney disease stage III creatinine 1.42 Peripheral vascular disease Diabetes type 2 Right below knee amputation History of TIA with right ocular nerve palsy Hard of hearing Plan: Patient will be continued on telemetry monitoring. Serial troponins. Patient will be started on IV heparin and cardiology was consulted. Currently awaiting callback. Gen. surgery was consulted as well for possible acute cholecystitis. Continue with aspirin statins and Plavix. Continue with IV Lasix. Patient is bradycardic with heart rate around 50s. We will follow up closely. Further recommendations based on the clinical course. Prognosis is guarded. Monitor renal function and CBC and CMP tomorrow. Time with Patient: Greater than 30
[2018-11-19 21:28] LABS: Partial Thromboplastin Time 27.8 sec (22.0-30.0); Prothrombin Time 10.4 sec (9.0-12.0)
[2018-11-19] MEDS: HEPARIN SOD,PORK IN 0.45% NACL 25,000 UNIT in 0.45% NACL 1 250ML.BAG IV SCH (21:56)
[2018-11-19] MEDS: CARBIDOPA-LEVODOPA 25-100 MG 1 EACH TAB PO SCH (22:02)
[2018-11-19] MEDS ORDERED: ACETAMINOPHEN TAB 325 MG TAB PO PRN (23:14)
[2018-11-20] MEDS: INSULIN ASPART (NovoLOG) 100 UNIT/ML VIAL SQ SCH ×4 (02:50→20:31)
[2018-11-20] MEDS: INSULN ASP PRT/INSULIN ASPART 100 UNIT/ML 10 ML VIAL SQ SCH ×2 (02:50→18:00)
[2018-11-20] MEDS: NITROGLYCERIN OINT 1 INCH/GM PACKET TOPICAL SCH ×4 (02:50→22:18)
[2018-11-20 03:52] LABS: Basophils % (A) 0 %; Eosinophils # (A) 0.2 k/uL (0-0.7); Eosinophils % (A) 2 %; HCT 30.8 % (39.0-53.0); HGB 9.7 gm/dL (13.0-17.5); Lymphocytes # (A) 1.7 k/uL (1.0-4.8); Lymphocytes % (A) 17 %; MCH 29.1 pg (25.0-35.0); MCHC 31.6 g/dL (31.0-37.0); MCV 92.2 fL (80.0-100.0); Mean Platelet Volume 9.3; Monocytes # (A) 0.7 k/uL (0-1.0); Monocytes % (A) 7 %; Neutrophils # (A) 7.2 k/uL (1.3-7.7); Neutrophils % (A) 71 %; Platelet Count 161 k/uL (150-450); RBC 3.34 m/uL (4.30-5.90); RDW 14.4 % (11.5-15.5); WBC 10.2 k/uL (3.8-10.6)
[2018-11-20 04:13] LABS: Albumin 3.1 g/dL (3.5-5.0); Calcium 8.4 mg/dL (8.4-10.2); Total Protein 5.7 g/dL (6.3-8.2)
[2018-11-20 04:47] LABS: Glucose,Whole Blood 116 mg/dL (75-99)
--- NOTE | 2018-11-20 07:18 | XR ---
EXAMINATION TYPE: XR chest 1V DATE OF EXAM: 11/20/2018 CLINICAL HISTORY: Difficulty breathing and CHF progress study. TECHNIQUE: Single AP portable upright view of the chest is obtained. COMPARISON: Chest x-ray from August 09, 2015 FINDINGS: Post-CABG changes with mediastinal clips and sternal wires is redemonstrated. There is per sistent cardiomegaly. There is chronic parenchymal change without suspicious new focal airspace opaci ty, pleural effusion, or pneumothorax seen bilaterally. Exam slightly suboptimal due to portable tech nique and patient's large body habitus. Osseous structures are intact. Overlying EKG leads are seen. IMPRESSION: Overall stable findings, chronic parenchymal changes and cardiomegaly without acute pul monary process.
[2018-11-20] MEDS ORDERED: FUROSEMIDE 10 MG/ML 4 ML VIAL IV SCH (08:00)
[2018-11-20] MEDS: ALLOPURINOL 100 MG TAB PO SCH (08:26)
[2018-11-20] MEDS: ASPIRIN 325 MG TAB PO SCH (08:26)
[2018-11-20] MEDS: CLOPIDOGREL 75 MG TAB PO SCH (08:26)
[2018-11-20] MEDS: FAMOTIDINE 20 MG TAB PO SCH (08:26)
[2018-11-20] MEDS: DOCUSATE 100 MG CAP PO SCH (08:27)
[2018-11-20] MEDS: GABAPENTIN 400 MG CAP PO SCH ×3 (08:27→20:44)
[2018-11-20] MEDS: CARBIDOPA-LEVODOPA 25-100 MG 1 EACH TAB PO SCH ×3 (08:27→20:45)
[2018-11-20] MEDS: metFORMIN 500 MG TAB PO SCH (08:32)
--- NOTE | 2018-11-20 09:44 | P.CRDCN ---
<Marcy Rodriguez E - Last Filed: 11/20/18 09:22> History of Present Illness Consult date: 11/20/18 Requesting physician: Eddie Coyne Consult reason: chest pain Chief complaint: Chest pain History of present illness: This is an 78-year-old gentleman with known history of coronary artery disease with prior bypass surgery, aortic valve disease with prior aortic valve replacement, severe underlying peripheral arterial disease, diabetes, hypertension, hyperlipidemia, peripheral tibial disease for which he underwent successful balloon angioplasty of the right SFA and right popliteal and right tibial peroneal trunk in 2014 followed by a right below the knee amputation for critical limb ischemia, for which the patient has undergone arthrectomy of the left popliteal, balloon angioplasty of the left popliteal by Dr. Donald in March of last year, history also of prior CVA, Parkinson's, history of alcohol abuse but he quit approximately 8 years ago. He presents to the hospital with symptoms that he describes as upper abdominal discomfort, it does appear on further questioning that he did have discomfort and pressure more in the chest region as well. He states that he been having it off and on for a couple of days but the night prior to his admission when he called EMS he states it was very severe, he felt as though he might . His initial EKG on admission here showed a normal sinus rhythm with first-degree AV block, ST depression noted in the lateral leads with some nonspecific ST-T wave changes in the inferior leads. I pressure this morning 127/60, heart rate in the 60s to 70s, temperature this morning 98.9, the patient was noted to have low-grade temperature through the night last night. Laboratory data was reviewed, white blood cell count 10.2, hemoglobin 9.7, platelet count 161. Sodium 139, potassium 5.0, BUN 29 and creatinine 2.2 this morning 17 and 1.4 yesterday. Plasma lactic acid level was normal. BNP level 5830. Troponins 0.014, 1.7, 7.2. He was initiated on IV Lasix in the emergency room which we will discontinue this morning. Chest x-ray showed stable findings, chronic parenchymal change without any acute process. An ultrasound of the abdomen was performed which showed a hydrogen the gallbladder with small amount of pericolic cystic fluid gallbladder wall janes ured 6 mm correlate for cholecystitis. Liver is heterogeneous correlate for hepatic steatosis. A CAT scan of the abdomen was performed which revealed large duodenal diverticulum chronic renal disease. At the time of my examination this morning, patient is sitting up at his bedside, breathing is stable, he denies chest discomfort or abdominal discomfort at present. According to the patient, he follows with Dr. Donald in our office for his peripheral needs, he sees a Dr. Watson in [place] for his cardiac needs. Past Medical History Past Medical History: CVA/TIA, Diabetes Mellitus, Hyperlipidemia, Hypertension, Musculoskeletal Disorder, Neurologic Disorder, Renal Disease, Vascular Disorder Additional Past Medical History / Comment(s): CVA-pt states no deficits, TIA-R ocular nerve palsy, R third nerve palsy, parkinson's,. HIGH POTASSIUM 03/07/18- POTASSIUM PILL DISCONTINUED History of Any Multi-Drug Resistant Organisms: None Reported Past Surgical History: Coronary Bypass/CABG, Heart Catheterization, Tonsillectomy Additional Past Surgical History / Comment(s): colonoscopy, bilateral cataract removal, right below knee amputation, valve replacement & triple bypass in [facility] 4 yrs. ago,aortogram Past Anesthesia/Blood Transfusion Reactions: No Reported Reaction Additional Past Anesthesia/Blood Transfusion Reaction / Comment(s): no hx blood transfusion Past Psychological History: No Psychological Hx Reported Smoking Status: Never smoker - Past Family History Father Family Medical History: Coronary Artery Disease (CAD) Additional Family Medical History / Comment(s): Father had CABG. He at age 93yrs. Mother Family Medical History: Diabetes Mellitus Additional Family Medical History / Comment(s): Mother at age 83 yrs. Medications and Allergies Home Medications Medication Instructions Recorded Confirmed Type RX: Aspirin 325 mg PO DAILY 07/29/15 11/19/18 History RX: Atorvastatin [Lipitor] 80 mg PO HS 07/29/15 11/19/18 History RX: Carbidopa-Levodopa 25-100 mg 1 tab PO TID 07/29/15 11/19/18 History [Sinemet 25-100 mg] RX: Gabapentin 400 mg PO TID 07/29/15 11/19/18 History RX: Metoprolol Tartrate 50 mg PO QAM 07/29/15 11/19/18 History RX: Insulin NPH Hum/Reg Insulin Hm 50 unit SQ AC-BID 01/31/18 11/19/18 History [NovoLIN 70-30 100 UNIT/ML VIAL] RX: Torsemide [Demadex] 20 mg PO BID 01/31/18 11/19/18 History RX: Famotidine [Pepcid] 20 mg PO DAILY 04/07/18 11/19/18 History Allopurinol [Zyloprim] 100 mg PO DAILY 07/08/18 11/19/18 History Clopidogrel [Plavix] 75 mg PO DAILY 07/08/18 11/19/18 History Ergocalciferol (Vitamin D2) 50,000 unit PO Q30D 07/08/18 11/19/18 History [Vitamin D2] Multivitamin [Men's Multi-Vitamin] 1 each PO DAILY 07/08/18 11/19/18 History Calcitriol [Rocaltrol] 0.25 mcg PO Q7D 11/19/18 11/19/18 History Calcium Acetate [Phoslo] 667 mg PO DAILY 11/19/18 11/19/18 History Allergies Allergy/AdvReac Type Severity Reaction Status Date / Time No Known Allergies Allergy Verified 11/19/18 07:52 Physical Exam Vitals: Vital Signs Temp Pulse Pulse Resp BP BP Pulse Ox 11/20/18 08:40 66 20 11/20/18 07:47 98.9 F 66 20 127/62 94 L 11/20/18 03:13 99.1 F 73 16 164/72 96 11/20/18 00:51 14 93 L 11/20/18 00:05 99.7 F H 16 93 L 11/19/18 23:57 100.1 F H 61 18 100/50 91 L 11/19/18 20:00 99.1 F 57 L 16 119/58 96 11/19/18 18:30 98.3 F 62 16 113/53 98 11/19/18 17:45 97.8 F 59 L 16 110/55 99 11/19/18 15:00 68 16 106/53 99 11/19/18 14:00 69 17 102/49 96 11/19/18 13:53 99.2 F 63 16 102/49 98 11/19/18 13:30 65 18 116/72 11/19/18 13:00 69 19 116/56 11/19/18 12:30 85 20 141/67 11/19/18 12:00 99.2 F 75 18 114/62 11/19/18 11:10 75 19 111/53 11/19/18 10:40 89 16 117/62 11/19/18 10:20 93 17 125/98 11/19/18 10:00 125/98 Intake and Output 11/19/18 11/20/18 11/20/18 22:59 06:59 14:59 Intake Total 60 187.857 Output Total 600 1000 Balance -540 -812.143 Intake: IV 60 120 0.9 50 40 Heparin Sod,Pork in 0.45% 10 80 NaCl 25,000 unit In 0.45 % NaCl 1 250ml.bag @ 11 UNITS/KG/HR 9.979 mls/hr IV .Q24H [facility] Rx#: [id number] Intake, IV Titration 67.857 Amount Heparin Sod,Pork in 0.45% 67.857 NaCl 25,000 unit In 0.45 % NaCl 1 250ml.bag @ 11 UNITS/KG/HR 9.979 mls/hr IV .Q24H [facility] Rx#: [id number] Output: Urine 600 1000 Other: Voiding Method Urinal Urinal Urinal # Voids 1 Weight 90.5 kg PHYSICAL EXAMINATION: GENERAL: 78-year-old gentleman in no acute distress at the time of my examination HEENT: Head is atraumatic, normocephalic. Pupils equal, round. Sclera anicteric. Conjunctiva are clear. Mucous membranes of the mouth are moist. Neck is supple. There is no elevated jugular venous pressure. No carotid bruit is heard. HEART EXAMINATION: Heart S1 and S2 systolic ejection murmur is heard. CHEST EXAMINATION: Lungs are clear to auscultation and precussion. No chest wall tenderness is noted on palpation or with deep breathing. ABDOMEN: Soft, obese, nontender. Bowel sounds are heard. No organomegaly noted. EXTREMITIES: 1+ peripheral pulses to the left lower with evidence of peripheral edema and chronic venous stasis . Right BKA NEUROLOGIC patient is awake, alert and oriented 3 . . Results 11/20/18 03:31 11/20/18 03:31 Cardiac Enzymes 11/19/18 11/19/18 11/20/18 Range/Units 11:44 18:00 03:31 AST 37 (17-59) U/L Troponin I 1.730 H* 7.290 H* (0.000-0.034) ng/mL Coagulation 11/19/18 11/20/18 Range/Units 20:41 03:31 PT 10.4 (9.0-12.0) sec APTT 27.8 36.7 H (22.0-30.0) sec CBC 11/19/18 11/20/18 Range/Units 20:41 03:31 WBC 10.3 10.2 (3.8-10.6) k/uL RBC 3.44 L 3.34 L (4.30-5.90) m/uL Hgb 10.5 L 9.7 L (13.0-17.5) gm/dL Hct 31.9 L 30.8 L (39.0-53.0) % Plt Count 187 161 (150-450) k/uL Comprehensive Metabolic Panel 11/20/18 Range/Units 03:31 Sodium 139 (137-145) mmol/L Potassium 5.0 (3.5-5.1) mmol/L Chloride 104 (98-107) mmol/L Carbon Dioxide 27 (22-30) mmol/L BUN 29 H (9-20) mg/dL Creatinine 2.27 H (0.66-1.25) mg/dL Glucose 116 H (74-99) mg/dL Calcium 8.4 (8.4-10.2) mg/dL AST 37 (17-59) U/L ALT 8 L (21-72) U/L Alkaline Phosphatase 106 (38-126) U/L Total Protein 5.7 L (6.3-8.2) g/dL Albumin 3.1 L (3.5-5.0) g/dL Current Medications Generic Name Dose Route Start Last Admin Trade Name Freq PRN Reason Stop Dose Admin Acetaminophen 650 mg 11/19/18 23:14 11/19/18 23:37 Tylenol Tab PO 650 mg Q6HR PRN Administration Fever and/ or Pain Allopurinol 100 mg 11/19/18 09:00 11/20/18 08:26 Zyloprim PO 100 mg DAILY [facility] Administration Aspirin 325 mg 11/19/18 09:00 11/20/18 08:26 Aspirin PO 325 mg DAILY [facility] Administration Atorvastatin Calcium 80 mg 11/19/18 21:00 11/19/18 20:47 Lipitor PO 80 mg HS [facility] Administration Carbidopa/Levodopa 1 each 11/19/18 22:00 11/20/18 08:27 Sinemet 25-100 PO 1 each TID [facility] Administration Clopidogrel Bisulfate 75 mg 11/19/18 09:00 11/20/18 08:26 Plavix PO 75 mg DAILY [facility] Administration Docusate Sodium 100 mg 11/19/18 09:00 11/20/18 08:27 Colace PO 100 mg DAILY [facility] Administration Famotidine 20 mg 11/19/18 09:00 11/20/18 08:26 Pepcid PO 20 mg DAILY [facility] Administration Furosemide 40 mg 11/20/18 08:00 11/20/18 07:54 Lasix IV 40 mg Q12H [facility] Administration Gabapentin 400 mg 11/19/18 09:00 11/20/18 08:27 Neurontin PO 400 mg TID [facility] Administration Heparin Sodium (Porcine) 0 unit 11/19/18 20:27 11/20/18 04:50 Heparin IV 4,000 unit PER PROTOCOL PRN Administration Low PTT Protocol Heparin Sodium/Sodium Chloride 250 mls @ 9.979 mls/hr 11/19/18 20:30 11/20/18 04:44 25,000 unit/ Sodium Chloride IV 14 units/kg/hr .Q24H [facility] 12.701 mls/hr Titration Protocol 11 UNITS/KG/HR Insulin Aspart 36 unit 11/19/18 07:30 11/20/18 02:50 Novolog Mix 70-30 Vial SQ Not Given AC-BID [facility] Insulin Aspart 0 unit 11/20/18 07:30 11/20/18 02:50 Novolog SQ Not Given ACHS [facility] Protocol Metformin HCl 500 mg 11/19/18 09:00 11/20/18 08:32 Glucophage PO Not Given DAILY [facility] Nitroglycerin 0.5 inch 11/19/18 18:00 11/20/18 08:32 Nitro-Bid Oint TOPICAL Not Given Q6HR [facility] Sodium Chloride 10 ml 11/19/18 09:00 11/20/18 08:28 Saline Flush IV 10 ml BID [facility] Administration Intake and Output 11/19/18 11/20/18 11/20/18 22:59 06:59 14:59 Intake Total 60 187.857 Output Total 600 1000 Balance -540 -812.143 Intake: IV 60 120 0.9 50 40 Heparin Sod,Pork in 0.45% 10 80 NaCl 25,000 unit In 0.45 % NaCl 1 250ml.bag @ 11 UNITS/KG/HR 9.979 mls/hr IV .Q24H [facility] Rx#: [id number] Intake, IV Titration 67.857 Amount Heparin Sod,Pork in 0.45% 67.857 NaCl 25,000 unit In 0.45 % NaCl 1 250ml.bag @ 11 UNITS/KG/HR 9.979 mls/hr IV .Q24H [facility] Rx#: [id number] Output: Urine 600 1000 Other: Voiding Method Urinal Urinal Urinal # Voids 1 Weight 90.5 kg 11/20/18 03:31 11/20/18 03:31 EKG Interpretations (text) EKG shows a normal sinus rhythm with ST depression noted in the lateral leads and nonspecific ST-T wave changes noted in the inferior leads Assessment and Plan Plan: Assessment and plan #1 symptoms of lower chest and upper abdominal discomfort with mild associated nausea, with suggestion of possible acute coronary syndrome. He shows a normal sinus rhythm with some lateral ST depression in inferior ST-T wave changes. Troponins 0.014, 1.7, 7.2. #2 known history of coronary artery disease with prior coronary artery bypass gr afting surgery and aortic valve replacement #3 PVD and PAD, patient had undergone angioplasty of the right SFA and right popliteal and right tibial peroneal trunk in 2014 followed by a right below the knee amputation, subsequent to that in March of last year he underwent arthrectomy and balloon angioplasty of the left popliteal #4 hypertension #5 hyperlipidemia #6 diabetes #7 prior CVA #8 Parkinson's #9 acute on chronic renal failure #10 anemia Plan Will obtain an echocardiogram with Doppler study, I do have an echo from 2014 at which time ejection fraction was 40-45%, severe pulmonary hypertension normally functioning bioprosthetic valve. Patient was noted to have a low-grade temperature through the night last night, his white blood cell count is normal. Lactic acid normal. Patient was initiated on IV Lasix in the emergency room, creatinine went from 140-2, we will discontinue the IV Lasix today. It was explained to the patient that he may need to undergo a cardiac catheterization, the risks and the benefits were explained in detail. Further recommendations to follow. DNP note has been reviewed, I agree with a documented findings and plan of care. Patient was seen and examined. <DirkJhoan - Last Filed: 11/20/18 19:38> Physical Exam Vitals: Vital Signs Temp Pulse Resp BP Pulse Ox 11/20/18 16:28 65 20 11/20/18 15:19 98.6 F 63 18 130/63 93 L 11/20/18 14:59 64 18 11/20/18 11:51 64 18 11/20/18 11:33 98.5 F 64 18 112/55 90 L 11/20/18 10:47 66 11/20/18 08:40 66 20 11/20/18 07:47 98.9 F 66 20 127/62 94 L 11/20/18 03:13 99.1 F 73 16 164/72 96 11/20/18 00:51 14 93 L 11/20/18 00:05 99.7 F H 16 93 L 11/19/18 23:57 100.1 F H 61 18 100/50 91 L 11/19/18 20:00 99.1 F 57 L 16 119/58 96 Intake and Output 11/20/18 11/20/18 11/20/18 06:59 14:59 22:59 Intake Total 187.857 85.943 Output Total 1000 900 Balance -812.143 -814.057 Intake: IV 120 0.9 40 Heparin Sod,Pork in 0.45% 80 NaCl 25,000 unit In 0.45 % NaCl 1 250ml.bag @ 11 UNITS/KG/HR 9.979 mls/hr IV .Q24H [facility] Rx#: [id number] Intake, IV Titration 67.857 85.943 Amount Heparin Sod,Pork in 0.45% 67.857 85.943 NaCl 25,000 unit In 0.45 % NaCl 1 250ml.bag @ 11 UNITS/KG/HR 9.979 mls/hr IV .Q24H [facility] Rx#: [id number] Output: Urine 1000 900 Other: Voiding Method Urinal Urinal Urinal # Voids 1 1 Weight 90.5 kg 90.5 kg Results 11/20/18 03:31 11/20/18 03:31 Cardiac Enzymes 11/20/18 Range/Units 03:31 AST 37 (17-59) U/L Coagulation 11/19/18 11/20/1819 Range/Units 20:41 03:31 10:54 PT 10.4 (9.0-12.0) sec APTT 27.8 36.7 H 61.0 H (22.0-30.0) sec CBC 11/19/18 11/20/18 Range/Units 20:41 03:31 WBC 10.3 10.2 (3.8-10.6) k/uL RBC 3.44 L 3.34 L (4.30-5.90) m/uL Hgb 10.5 L 9.7 L (13.0-17.5) gm/dL Hct 31.9 L 30.8 L (39.0-53.0) % Plt Count 187 161 (150-450) k/uL Comprehensive Metabolic Panel 11/20/18 Range/Units 03:31 Sodium 139 (137-145) mmol/L Potassium 5.0 (3.5-5.1) mmol/L Chloride 104 (98-107) mmol/L Carbon Dioxide 27 (22-30) mmol/L BUN 29 H (9-20) mg/dL Creatinine 2.27 H (0.66-1.25) mg/dL Glucose 116 H (74-99) mg/dL Calcium 8.4 (8.4-10.2) mg/dL AST 37 (17-59) U/L ALT 8 L (21-72) U/L Alkaline Phosphatase 106 (38-126) U/L Total Protein 5.7 L (6.3-8.2) g/dL Albumin 3.1 L (3.5-5.0) g/dL Current Medications Generic Name Dose Route Start Last Admin Trade Name Freq PRN Reason Stop Dose Admin Acetaminophen 650 mg 11/19/18 23:14 11/19/18 23:37 Tylenol Tab PO 650 mg Q6HR PRN Administration Fever and/ or Pain Allopurinol 100 mg 11/19/18 09:00 11/20/18 08:26 Zyloprim PO 100 mg DAILY [facility] Administration Aspirin 81 mg 11/21/18 09:00 Aspirin PO DAILY [facility] Atorvastatin Calcium 80 mg 11/19/18 21:00 11/19/18 20:47 Lipitor PO 80 mg HS [facility] Administration Carbidopa/Levodopa 1 each 11/19/18 22:00 11/20/18 15:15 Sinemet 25-100 PO 1 each TID [facility] Administration Clopidogrel Bisulfate 75 mg 11/19/18 09:00 11/20/18 08:26 Plavix PO 75 mg DAILY [facility] Administration Docusate Sodium 100 mg 11/19/18 09:00 11/20/18 08:27 Colace PO 100 mg DAILY [facility] Administration Famotidine 20 mg 11/19/18 09:00 11/20/18 08:26 Pepcid PO 20 mg DAILY [facility] Administration Gabapentin 400 mg 11/19/18 09:00 11/20/18 15:15 Neurontin PO 400 mg TID [facility] Administration Heparin Sodium (Porcine) 0 unit 11/19/18 20:27 11/20/18 04:50 Heparin IV 4,000 unit PER PROTOCOL PRN Administration Low PTT Protocol Heparin Sodium/Sodium Chloride 250 mls @ 9.979 mls/hr 11/19/18 20:30 11/20/18 11:30 25,000 unit/ Sodium Chloride IV 14 units/kg/hr .Q24H [facility] 12.701 mls/hr Titration Protocol 11 UNITS/KG/HR Insulin Aspart 36 unit 11/19/18 07:30 11/20/18 18:00 Novolog Mix 70-30 Vial SQ 36 unit AC-BID [facility] Administration Insulin Aspart 0 unit 11/20/18 07:30 11/20/18 17:59 Novolog SQ 2 unit ACHS [facility] Administration Protocol Metformin HCl 500 mg 11/19/18 09:00 11/20/18 08:32 Glucophage PO Not Given DAILY [facility] Nitroglycerin 0.5 inch 11/19/18 18:00 11/20/18 16:43 Nitro-Bid Oint TOPICAL Not Given Q6HR [facility] Sodium Chloride 10 ml 11/19/18 09:00 11/20/18 08:28 Saline Flush IV 10 ml BID [facility] Administration Intake and Output 11/20/18 11/20/18 11/20/18 06:59 14:59 22:59 Intake Total 187.857 85.943 Output Total 1000 900 Balance -812.143 -814.057 Intake: IV 120 0.9 40 Heparin Sod,Pork in 0.45% 80 NaCl 25,000 unit In 0.45 % NaCl 1 250ml.bag @ 11 UNITS/KG/HR 9.979 mls/hr IV .Q24H [facility] Rx#: [id number] Intake, IV Titration 67.857 85.943 Amount Heparin Sod,Pork in 0.45% 67.857 85.943 NaCl 25,000 unit In 0.45 % NaCl 1 250ml.bag @ 11 UNITS/KG/HR 9.979 mls/hr IV .Q24H [facility] Rx#: [id number] Output: Urine 1000 900 Other: Voiding Method Urinal Urinal Urinal # Voids 1 1 Weight 90.5 kg 90.5 kg Patient Weight 11/21/18 06:59 Weight 90.5 kg 11/20/18 03:31 11/20/18 03:31
--- NOTE | 2018-11-20 11:12 | ECHOF ---
Referral Reason:assess lvf MEASUREMENTS -------- HEIGHT: 165.1 cm WEIGHT: 89.8 kg BP: IVSd: 1.5 cm (0.6 - 1.1) LVIDd: 5.7 cm (3.9 - 5.3) LVPWd: 1.4 cm (0.6 - 1.1) IVSs: 1.7 cm LVIDs: 4.6 cm LVPWs: 1.7 cm LA Diam: 5.0 cm (2.7 - 3.8) LAESV Index (A-L): 38.55 ml/m Ao Diam: 3.6 cm (2.0 - 3.7) MV EXCURSION: 19.783 mm (> 18.000) MV EF SLOPE: 61 mm/s (70 - 150) EPSS: 1.8 cm MV E Enrique: 0.82 m/s MV DecT: 144 ms MV A Enrique: 0.97 m/s MV E/A Ratio: 0.85 AV maxP.51 mmHg AV meanP.83 mmHg RAP: 5.00 mmHg RVSP: 44.82 mmHg FINDINGS -------- Undetermined rhythm. This was a techncally difficult study with suboptimal views, , Lumason utilized for enhancement of im ages. There is moderate concentric left ventricular hypertrophy. Overall left ventricular systolic functi on is moderately impaired with, an EF between 35 - 40 %. Inferiorlateral Hypokinesis Basal septal hypokinesis The right ventricle is normal in size. The left atrium is markedly dilated. LA is severely dilated >40 ml/m2 5.0mg OF Lumason UTLIZED: 2 OR MORE WALL SEGMENTS NOT VISUALIZED. Peak/mean gradient across the Aortic Valve is 71.51mmHg / 33.83mmHg. Bioprosthetic AOV Possible St enosis. Mild mitral annular calcification present. Mild mitral regurgitation is present. Mild tricuspid regurgitation present. There is mild to moderate pulmonary hypertension. The right ventricular systolic pressure, as measured by Doppler, is 44.82mmHg. Trace/mild (physiologic) pulmonic regurgitation. The aortic root size is normal. There is no pericardial effusion. CONCLUSIONS -------- 1. This was a techncally difficult study with suboptimal views, , Lumason utilized for enhancement of images. 2. There is moderate concentric left ventricular hypertrophy. 3. Overall left ventricular systolic function is moderately impaired with, an EF between 35 - 40 %. 4. Inferiorlateral Hypokinesis 5. Basal septal hypokinesis 6. The right ventricle is normal in size. 7. The left atrium is markedly dilated. 8. LA is severely dilated >40 ml/m2 9. 5.0mg OF Lumason UTLIZED: 2 OR MORE WALL SEGMENTS NOT VISUALIZED. 10. Peak/mean gradient across the Aortic Valve is 71.51mmHg / 33.83mmHg. 11. Bioprosthetic AOV Possible Stenosis. 12. Mild mitral annular calcification present. 13. Mild mitral regurgitation is present. 14. Mild tricuspid regurgitation present. 15. There is mild to moderate pulmonary hypertension. 16. The right ventricular systolic pressure, as measured by Doppler, is 44.82mmHg. 17. Trace/mild (physiologic) pulmonic regurgitation. 18. The aortic root size is normal. 19. There is no pericardial effusion. ACETYLENE TORCH BURNER: Anusha Bonner RDCS
--- NOTE | 2018-11-20 11:38 | P.GSCN ---
History of Present Illness Consult date: 11/20/18 Reason for Consult: Cholecystitis Requesting physician: Amara Flores History of present illness: CHIEF COMPLAINT: Cholecystitis HISTORY OF PRESENT ILLNESS: 78-year-old male who was admitted to the hospital with elevated troponins and abdominal pain. General surgery was consulted for further evaluation. Patient reports right upper quadrant and chest pain over the past few days that has worsened in severity. He denies nausea or vomiting. Denies diarrhea or constipation. Denies hematemesis, hematochezia, or melena. WBC 10.2. Hemoglobin 9.7. PAST MEDICAL HISTORY: See list. PAST SURGICAL HISTORY: See list. SOCIAL HISTORY: No illicit drug use. REVIEW OF SYSTEMS: CONSTITUTIONAL: Denies fever or chills. HEENT: Denies blurred vision, vision changes, or eye pain. Denies hemoptysis CARDIOVASCULAR: reports chest pain prior to admission. RESPIRATORY: No shortness of breath. GASTROINTESTINAL: Refer to HPI for pertinent findings HEMATOLOGIC: Denies bleeding disorders. GENITOURINARY: Denies any blood in urine. SKIN: Denies pruitis. Denies rash. PHYSICAL EXAM: VITAL SIGNS: Reviewed. GENERAL: Well-developed in no acute distress. HEENT: No sclera icterus. Extraocular movements grossly intact. Moist buccal mucosa. Head is atraumatic, normocephalic. ABDOMEN: Soft. Nondistended. Nontender. Positive bowel sounds. NEUROLOGIC: Alert and oriented. Cranial nerves II through XII grossly intact. IMAGIN. Ultrasound of the abdomen: Gallbladder is hydropic with a small amount of pericholecystic fluid. Gallbladder measures 6mm. Correlate for cholecystitis. Liver is heterogeneous correlate for hepatic steatosis or hepatitis. 2. 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 Chronic renal disease. Cardiomegaly. Correlate for cystitis. Gallbladder hydrops without evidence of gallstones. Could not exclude a small amount of pericholecystic fluid. Gastric wall thickening likely related to incomplete distention. Correlate clinically to exclude mild gastritis. ASSESSMENT: 1. Abdominal pain 2. Cholecystitis PLAN: Patient likely will require surgical intervention for removal of gallbladder. However, patient is not medically stable for surgery at this time. Continue treatment per medicine and cardiology. Patient encouraged to follow low fat diet. We will continue to follow. Nurse practitioner note has been reviewed by physician. Signing provider agrees with the documented findings, assessment, and plan of care. Past Medical History Past Medical History: CVA/TIA, Diabetes Mellitus, Hyperlipidemia, Hypertension, Musculoskeletal Disorder, Neurologic Disorder, Renal Disease, Vascular Disorder Additional Past Medical History / Comment(s): CVA-pt states no deficits, TIA-R ocular nerve palsy, R third nerve palsy, parkinson's,. HIGH POTASSIUM 03/07/18- POTASSIUM PILL DISCONTINUED History of Any Multi-Drug Resistant Organisms: None Reported Past Surgical History: Coronary Bypass/CABG, Heart Catheterization, Tonsillectomy Additional Past Surgical History / Comment(s): colonoscopy, bilateral cataract removal, right below knee amputation, valve replacement & triple bypass in [facility] 4 yrs. ago,aortogram Past Anesthesia/Blood Transfusion Reactions: No Reported Reaction Additional Past Anesthesia/Blood Transfusion Reaction / Comm: no hx blood transfusion Past Psychological History: No Psychological Hx Reported Smoking Status: Never smoker - Past Family History Father Family Medical History: Coronary Artery Disease (CAD) Additional Family Medical History / Comment(s): Father had CABG. He at age 93yrs. Mother Family Medical History: Diabetes Mellitus Additional Family Medical History / Comment(s): Mother at age 83 yrs. Medications and Allergies Home Medications Medication Instructions Recorded Confirmed Type Aspirin 325 mg PO DAILY 07/29/15 11/19/18 History Atorvastatin [Lipitor] 80 mg PO HS 07/29/15 11/19/18 History Carbidopa-Levodopa 25-100 mg 1 tab PO TID 07/29/15 11/19/18 History [Sinemet 25-100 mg] Gabapentin 400 mg PO TID 07/29/15 11/19/18 History Metoprolol Tartrate 50 mg PO QAM 07/29/15 11/19/18 History Insulin NPH Hum/Reg Insulin Hm 50 unit SQ AC-BID 01/31/18 11/19/18 History [NovoLIN 70-30 100 UNIT/ML VIAL] Torsemide [Demadex] 20 mg PO BID 01/31/18 11/19/18 History Famotidine [Pepcid] 20 mg PO DAILY 04/07/18 11/19/18 History Allopurinol [Zyloprim] 100 mg PO DAILY 07/08/18 11/19/18 History Clopidogrel [Plavix] 75 mg PO DAILY 07/08/18 11/19/18 History Ergocalciferol (Vitamin D2) 50,000 unit PO Q30D 07/08/18 11/19/18 History [Vitamin D2] Multivitamin [Men's Multi-Vitamin] 1 each PO DAILY 07/08/18 11/19/18 History Calcitriol [Rocaltrol] 0.25 mcg PO Q7D 11/19/18 11/19/18 History Calcium Acetate [Phoslo] 667 mg PO DAILY 11/19/18 11/19/18 History Allergies Allergy/AdvReac Type Severity Reaction Status Date / Time No Known Allergies Allergy Verified 11/19/18 07:52 Surgical - Exam Vital Signs Temp Pulse Resp BP Pulse Ox 99.5 F 93 18 166/108 94 L 11/19/18 05:39 11/19/18 05:39 11/19/18 05:39 11/19/18 05:39 11/19/18 05:39 Results - Labs 11/20/18 03:31 11/20/18 03:31 Abnormal Lab Results - Last 24 Hours (Table) 11/19/18 11/19/18 11/19/18 Range/Units 11:44 15:58 18:00 RBC (4.30-5.90) m/uL Hgb (13.0-17.5) gm/dL Hct (39.0-53.0) % Neutrophils # (1.3-7.7) k/uL APTT (22.0-30.0) sec BUN (9-20) mg/dL Creatinine (0.66-1.25) mg/dL Glucose (74-99) mg/dL POC Glucose (mg/dL) 64 L (75-99) mg/dL ALT (21-72) U/L Troponin I 1.730 H* 7.290 H* (0.000-0.034) ng/mL Total Protein (6.3-8.2) g/dL Albumin (3.5-5.0) g/dL 11/19/18 11/19/18 11/20/18 Range/Units 20:41 20:57 03:31 RBC 3.44 L 3.34 L (4.30-5.90) m/uL Hgb 10.5 L 9.7 L (13.0-17.5) gm/dL Hct 31.9 L 30.8 L (39.0-53.0) % Neutrophils # 8.1 H (1.3-7.7) k/uL APTT (22.0-30.0) sec BUN (9-20) mg/dL Creatinine (0.66-1.25) mg/dL Glucose (74-99) mg/dL POC Glucose (mg/dL) 113 H (75-99) mg/dL ALT (21-72) U/L Troponin I (0.000-0.034) ng/mL Total Protein (6.3-8.2) g/dL Albumin (3.5-5.0) g/dL 11/20/18 11/20/18 11/20/18 Range/Units 03:31 03:31 04:45 RBC (4.30-5.90) m/uL Hgb (13.0-17.5) gm/dL Hct (39.0-53.0) % Neutrophils # (1.3-7.7) k/uL APTT 36.7 H (22.0-30.0) sec BUN 29 H (9-20) mg/dL Creatinine 2.27 H (0.66-1.25) mg/dL Glucose 116 H (74-99) mg/dL POC Glucose (mg/dL) 116 H (75-99) mg/dL ALT 8 L (21-72) U/L Troponin I (0.000-0.034) ng/mL Total Protein 5.7 L (6.3-8.2) g/dL Albumin 3.1 L (3.5-5.0) g/dL 11/20/18 Range/Units 10:54 RBC (4.30-5.90) m/uL Hgb (13.0-17.5) gm/dL Hct (39.0-53.0) % Neutrophils # (1.3-7.7) k/uL APTT 61.0 H (22.0-30.0) sec BUN (9-20) mg/dL Creatinine (0.66-1.25) mg/dL Glucose (74-99) mg/dL POC Glucose (mg/dL) (75-99) mg/dL ALT (21-72) U/L Troponin I (0.000-0.034) ng/mL Total Protein (6.3-8.2) g/dL Albumin (3.5-5.0) g/dL Diabetes panel 11/20/18 Range/Units 03:31 Sodium 139 (137-145) mmol/L Potassium 5.0 (3.5-5.1) mmol/L Chloride 104 (98-107) mmol/L Carbon Dioxide 27 (22-30) mmol/L BUN 29 H (9-20) mg/dL Creatinine 2.27 H (0.66-1.25) mg/dL Glucose 116 H (74-99) mg/dL Calcium 8.4 (8.4-10.2) mg/dL AST 37 (17-59) U/L ALT 8 L (21-72) U/L Alkaline Phosphatase 106 (38-126) U/L Total Protein 5.7 L (6.3-8.2) g/dL Albumin 3.1 L (3.5-5.0) g/dL Calcium panel 11/20/18 Range/Units 03:31 Calcium 8.4 (8.4-10.2) mg/dL Albumin 3.1 L (3.5-5.0) g/dL Pituitary panel 11/20/18 Range/Units 03:31 Sodium 139 (137-145) mmol/L Potassium 5.0 (3.5-5.1) mmol/L Chloride 104 (98-107) mmol/L Carbon Dioxide 27 (22-30) mmol/L BUN 29 H (9-20) mg/dL Creatinine 2.27 H (0.66-1.25) mg/dL Glucose 116 H (74-99) mg/dL Calcium 8.4 (8.4-10.2) mg/dL Adrenal panel 11/20/18 Range/Units 03:31 Sodium 139 (137-145) mmol/L Potassium 5.0 (3.5-5.1) mmol/L Chloride 104 (98-107) mmol/L Carbon Dioxide 27 (22-30) mmol/L BUN 29 H (9-20) mg/dL Creatinine 2.27 H (0.66-1.25) mg/dL Glucose 116 H (74-99) mg/dL Calcium 8.4 (8.4-10.2) mg/dL Total Bilirubin 1.0 (0.2-1.3) mg/dL AST 37 (17-59) U/L ALT 8 L (21-72) U/L Alkaline Phosphatase 106 (38-126) U/L Total Protein 5.7 L (6.3-8.2) g/dL Albumin 3.1 L (3.5-5.0) g/dL
[2018-11-20 11:40] LABS: Glucose,Whole Blood 139 mg/dL (75-99)
[2018-11-20 16:38] LABS: Glucose,Whole Blood 187 mg/dL (75-99)
[2018-11-20 20:31] LABS: Glucose,Whole Blood 129 mg/dL (75-99)
[2018-11-20] MEDS: HEPARIN SOD,PORK IN 0.45% NACL 25,000 UNIT in 0.45% NACL 1 250ML.BAG IV SCH (20:31)
[2018-11-20] MEDS: ATORVASTATIN 80 MG TAB PO SCH (20:44)
[2018-11-20 22:59] LABS: Hemoglobin A1C 10.8 % (4.0-6.0)
[2018-11-21] MEDS: NITROGLYCERIN OINT 1 INCH/GM PACKET TOPICAL SCH ×4 (05:16→23:34)
[2018-11-21 06:06] LABS: Glucose,Whole Blood 92 mg/dL (75-99)
[2018-11-21] MEDS: INSULIN ASPART (NovoLOG) 100 UNIT/ML VIAL SQ SCH ×4 (06:06→21:52)
[2018-11-21 06:48] LABS: Basophils % (A) 0 %; Eosinophils # (A) 0.2 k/uL (0-0.7); Eosinophils % (A) 3 %; HCT 31.2 % (39.0-53.0); HGB 10.1 gm/dL (13.0-17.5); Lymphocytes # (A) 1.3 k/uL (1.0-4.8); Lymphocytes % (A) 18 %; MCH 29.2 pg (25.0-35.0); MCHC 32.5 g/dL (31.0-37.0); MCV 89.9 fL (80.0-100.0); Monocytes # (A) 0.5 k/uL (0-1.0); Monocytes % (A) 8 %; Neutrophils # (A) 4.9 k/uL (1.3-7.7); Neutrophils % (A) 68 %; Platelet Count 172 k/uL (150-450); RBC 3.47 m/uL (4.30-5.90); WBC 7.2 k/uL (3.8-10.6)
[2018-11-21] MEDS: INSULN ASP PRT/INSULIN ASPART 100 UNIT/ML 10 ML VIAL SQ SCH ×2 (06:51→17:36)
[2018-11-21 07:27] LABS: Calcium 8.3 mg/dL (8.4-10.2); Magnesium 1.8 mg/dL (1.6-2.3); Potassium 4.2 mmol/L (3.5-5.1)
[2018-11-21] MEDS: GABAPENTIN 400 MG CAP PO SCH ×3 (08:34→21:52)
[2018-11-21] MEDS: CLOPIDOGREL 75 MG TAB PO SCH (08:34)
[2018-11-21] MEDS: CARBIDOPA-LEVODOPA 25-100 MG 1 EACH TAB PO SCH ×3 (08:34→21:52)
[2018-11-21] MEDS: FAMOTIDINE 20 MG TAB PO SCH (08:34)
[2018-11-21] MEDS: ALLOPURINOL 100 MG TAB PO SCH (08:34)
[2018-11-21] MEDS: DOCUSATE 100 MG CAP PO SCH (08:34)
[2018-11-21] MEDS: ASPIRIN 81 MG PO SCH (08:34)
[2018-11-21 10:54] LABS: Glucose,Whole Blood 249 mg/dL (75-99)
--- NOTE | 2018-11-21 11:12 | CDI ---
Documentation Clarification Form Date: 11/21/2018 11:02:15 AM From: Pura PrietoTongKEMAL, CCDS Admit Date: 11/20/2018 12:02:00 PM Patient Name: Herson Ortiz Visit Number: [id number] Discharge Date: ATTENTION: The Clinical Documentation Specialists (CDI) and [facility] Coding Staff appreciate your assistance in clarifying documentation. Please respond to the clarification below the line at the bottom and electronically sign. The CDI & [facility] Coding staff will review the response and follow-up if needed. Please note: Queries are made part of the Legal Health Record. If you have any questions, please contact the author of this message via ITS. Dr. Jhoan Cavazos: A diagnosis of anemia lacks specificity to accurately reflect your patients severity of condition and clarification is needed. History/Risk Factors: Cardiac history: CAD status post CABG & AVR, PVD status post angioplasties & right BKA, Hypertension, CHF unknown or not documented type, Hyperlipidemia, IDDM II, CVA, Parkinson's Disease & CKD III. Clinical indicators: Presented with abdominal pain, chest pain & SOB, lower extremity swelling & diagnosed with NSTEMI & Acute CHF. Per the cardiology consult: Acute on CKD & Anemia. Hemoglobin: 11.8 - 10.5 - 9.7 - 10.1 Hematocrit: 36.2 - 31.9 - 30.8 - 31.2 Treatment: IV Ms, IV Lasix, IV Heparin drip, O2 2L prn, H & H. In order to capture the severity of condition, please clarify the type of anemia and etiology if known: Acute blood loss anemia Acute on chronic blood loss anemia Chronic blood loss anemia Iron deficiency anemia Hemolytic anemia Drug induced anemia Nutritional anemia Anemia of chronic kidney disease Anemia of other chronic disease Unable to determine Other, please specify (Last Revision: May 2017) MTDD
--- NOTE | 2018-11-21 12:17 | P.PN ---
Subjective Patient is resting comfortably in bed no chest discomfort no shortness of breath no lower extremity edema Blood pressure 120/56. His mercury 104/52 mmHg, pulse rate in the 60s Afebrile 97.2F Breath sounds are reduced bilaterally Heart sounds: Audible murmur, systolic Central obesity noted Lower extremity amputee Impression Known coronary artery disease prior bypass surgery Severe peripheral vascular disease Status post aortic valve replacement Right below-knee amputee In view of his multiple medical problems medical treatment recommended We will sign off. Patient to follow-up with his primary edi consultant Objective - Vital Signs Vital signs: Vital Signs Temp 97.2 F L 11/21/18 08:43 Pulse 70 11/21/18 11:47 Resp 18 11/21/18 11:47 BP 104/52 11/21/18 08:43 Pulse Ox 95 11/21/18 08:43 Intake & Output 11/20/18 11/21/18 11/21/18 18:59 06:59 18:59 Intake Total 85.943 96.2 579.719 Output Total 900 1000 Balance -814.057 -903.8 579.719 Weight 90.5 kg 91 kg Intake: Intake, IV Titration 85.943 96.2 179.719 Amount Heparin Sod,Pork in 0.45% 85.943 96.2 179.719 NaCl 25,000 unit In 0.45 % NaCl 1 250ml.bag @ 11 UNITS/KG/HR 9.979 mls/hr IV .Q24H [facility] Rx#: [id number] Oral 400 Output: Urine 900 1000 Other: Voiding Method Urinal Urinal Urinal # Voids 1 - Labs CBC & Chem 7: 11/21/18 06:11 11/21/18 06:11 Labs: Abnormal Lab Results - Last 24 Hours (Table) 11/20/18 11/20/18 11/20/18 Range/Units 03:31 16:36 20:30 RBC (4.30-5.90) m/uL Hgb (13.0-17.5) gm/dL Hct (39.0-53.0) % APTT (22.0-30.0) sec BUN (9-20) mg/dL Creatinine (0.66-1.25) mg/dL POC Glucose (mg/dL) 187 H 129 H (75-99) mg/dL Hemoglobin A1c 10.8 H (4.0-6.0) % Calcium (8.4-10.2) mg/dL 11/21/18 11/21/18 11/21/18 Range/Units 06:11 06:11 06:11 RBC 3.47 L (4.30-5.90) m/uL Hgb 10.1 L (13.0-17.5) gm/dL Hct 31.2 L (39.0-53.0) % APTT 53.5 H (22.0-30.0) sec BUN 45 H (9-20) mg/dL Creatinine 2.25 H (0.66-1.25) mg/dL POC Glucose (mg/dL) (75-99) mg/dL Hemoglobin A1c (4.0-6.0) % Calcium 8.3 L (8.4-10.2) mg/dL 11/21/18 Range/Units 10:53 RBC (4.30-5.90) m/uL Hgb (13.0-17.5) gm/dL Hct (39.0-53.0) % APTT (22.0-30.0) sec BUN (9-20) mg/dL Creatinine (0.66-1.25) mg/dL POC Glucose (mg/dL) 249 H (75-99) mg/dL Hemoglobin A1c (4.0-6.0) % Calcium (8.4-10.2) mg/dL
--- NOTE | 2018-11-21 15:33 | P.PN ---
Subjective Progress Note Date: 11/21/18 CHIEF COMPLAINT: Cholecystitis HISTORY OF PRESENT ILLNESS: Patient seen and examined at bedside. Patient denies abdominal pain. Patient denies nausea or vomiting. Patient tolerating oral intake. PHYSICAL EXAM: VITAL SIGNS: Reviewed. GENERAL: Well-developed in no acute distress. HEENT: No sclera icterus. Extraocular movements grossly intact. Moist buccal mucosa. Head is atraumatic, normocephalic. ABDOMEN: Soft. Nondistended. Nontender. Positive bowel sounds. NEUROLOGIC: Alert and oriented. Cranial nerves II through XII grossly intact. ASSESSMENT: 1. Abdominal pain 2. Cholecystitis PLAN: Patient likely will require surgical intervention for removal of gallbladder. However, patient is not medically stable for surgery at this time. Continue treatment per medicine and cardiology. Continue diet as tolerated. We will continue to follow. Nurse practitioner note has been reviewed by physician. Signing provider agrees with the documented findings, assessment, and plan of care. Objective - Vital Signs Vital signs: Vital Signs Temp 97.6 F 11/21/18 12:19 Pulse 68 11/21/18 12:19 Resp 18 11/21/18 12:19 BP 116/56 11/21/18 12:19 Pulse Ox 94 L 11/21/18 12:19 Intake & Output 11/20/18 11/21/18 11/21/18 18:59 06:59 18:59 Intake Total 85.943 96.2 799.719 Output Total 900 1000 450 Balance -814.057 -903.8 349.719 Weight 90.5 kg 91 kg Intake: Intake, IV Titration 85.943 96.2 179.719 Amount Heparin Sod,Pork in 0.45% 85.943 96.2 179.719 NaCl 25,000 unit In 0.45 % NaCl 1 250ml.bag @ 11 UNITS/KG/HR 9.979 mls/hr IV .Q24H [facility] Rx#: [id number] Oral 620 Output: Urine 900 1000 450 Other: Voiding Method Urinal Urinal Urinal # Voids 1 1 - Labs CBC & Chem 7: 11/21/18 06:11 11/21/18 06:11 Labs: Abnormal Lab Results - Last 24 Hours (Table) 11/20/18 11/20/18 11/20/18 Range/Units 03:31 16:36 20:30 RBC (4.30-5.90) m/uL Hgb (13.0-17.5) gm/dL Hct (39.0-53.0) % APTT (22.0-30.0) sec BUN (9-20) mg/dL Creatinine (0.66-1.25) mg/dL POC Glucose (mg/dL) 187 H 129 H (75-99) mg/dL Hemoglobin A1c 10.8 H (4.0-6.0) % Calcium (8.4-10.2) mg/dL 11/21/18 11/21/18 11/21/18 Range/Units 06:11 06:11 06:11 RBC 3.47 L (4.30-5.90) m/uL Hgb 10.1 L (13.0-17.5) gm/dL Hct 31.2 L (39.0-53.0) % APTT 53.5 H (22.0-30.0) sec BUN 45 H (9-20) mg/dL Creatinine 2.25 H (0.66-1.25) mg/dL POC Glucose (mg/dL) (75-99) mg/dL Hemoglobin A1c (4.0-6.0) % Calcium 8.3 L (8.4-10.2) mg/dL 11/21/18 Range/Units 10:53 RBC (4.30-5.90) m/uL Hgb (13.0-17.5) gm/dL Hct (39.0-53.0) % APTT (22.0-30.0) sec BUN (9-20) mg/dL Creatinine (0.66-1.25) mg/dL POC Glucose (mg/dL) 249 H (75-99) mg/dL Hemoglobin A1c (4.0-6.0) % Calcium (8.4-10.2) mg/dL
[2018-11-21 16:27] LABS: Glucose,Whole Blood 409 mg/dL (75-99)
[2018-11-21 21:03] LABS: Glucose,Whole Blood 156 mg/dL (75-99)
[2018-11-21] MEDS: ATORVASTATIN 80 MG TAB PO SCH (21:52)
[2018-11-22 05:09] VITALS: RESP 18
[2018-11-22 05:53] LABS: Glucose,Whole Blood 126 mg/dL (75-99)
[2018-11-22] MEDS: NITROGLYCERIN OINT 1 INCH/GM PACKET TOPICAL SCH (06:57)
[2018-11-22] MEDS: INSULIN ASPART (NovoLOG) 100 UNIT/ML VIAL SQ SCH ×3 (07:14→17:02)
[2018-11-22] MEDS: INSULN ASP PRT/INSULIN ASPART 100 UNIT/ML 10 ML VIAL SQ SCH ×2 (07:24→16:56)
[2018-11-22] MEDS: CARBIDOPA-LEVODOPA 25-100 MG 1 EACH TAB PO SCH ×2 (07:42→16:56)
[2018-11-22] MEDS: DOCUSATE 100 MG CAP PO SCH (07:42)
[2018-11-22] MEDS: FAMOTIDINE 20 MG TAB PO SCH (07:42)
[2018-11-22] MEDS: GABAPENTIN 400 MG CAP PO SCH ×2 (07:42→16:56)
[2018-11-22] MEDS: ASPIRIN 81 MG PO SCH (07:42)
[2018-11-22] MEDS: ALLOPURINOL 100 MG TAB PO SCH (07:42)
[2018-11-22] MEDS: CLOPIDOGREL 75 MG TAB PO SCH (07:42)
[2018-11-22 07:56] LABS: Basophils % (A) 0 %; Eosinophils # (A) 0.3 k/uL (0-0.7); Eosinophils % (A) 5 %; HCT 31.4 % (39.0-53.0); HGB 10.4 gm/dL (13.0-17.5); Lymphocytes # (A) 1.1 k/uL (1.0-4.8); Lymphocytes % (A) 18 %; MCV 91.1 fL (80.0-100.0); Monocytes # (A) 0.5 k/uL (0-1.0); Monocytes % (A) 8 %; Neutrophils # (A) 3.9 k/uL (1.3-7.7); Neutrophils % (A) 66 %; Platelet Count 193 k/uL (150-450); RBC 3.45 m/uL (4.30-5.90); RDW 14.3 % (11.5-15.5); WBC 5.9 k/uL (3.8-10.6)
[2018-11-22 08:27] LABS: Calcium 8.5 mg/dL (8.4-10.2); Potassium 4.4 mmol/L (3.5-5.1)
--- NOTE | 2018-11-22 09:52 | P.PN ---
Progress Note - Text Progress Note Date: 11/22/18 The patient remains in stable condition. He has some complaints of epigastric right quadrant pain. On exam his vital signs appear stable. Abdomen soft. Patient will undergo elective laparoscopic ostectomy once medically stable.
[2018-11-22 10:15] VITALS: BMI 32.5
[2018-11-22] MEDS ORDERED: TORSEMIDE 20 MG TAB PO SCH (11:00)
[2018-11-22 12:09] LABS: Glucose,Whole Blood 283 mg/dL (75-99)
[2018-11-22 15:57] VITALS: BP 138/69; PULSE 65; TEMP 97.5
--- NOTE | 2018-12-02 12:41 | P.PN ---
Subjective Progress Note Date: 11/20/18 Principal diagnosis: Chest pain Right upper quadrant abdominal pain with possible cholecystitis Patient is a 78-year-old male with a known history of diabetes type 2, peripheral vascular disease, right BKA, coronary artery disease history of valve replacement and triple bypass in [facility] 4 years ago, hypertension, hyperlipidemia, chronic renal disease and other multiple medical problems including history obesity morbid and see ER with complaints of chest pain acting up again. Pain is mainly in the midsternal and epigastric region. Patient felt very weak and could not stand up. Patient also having increased left lower activity swelling as well. Patient also was having worsening shortness of breath which made him come to the hospital. Patient follows with Dr. Donald per his peripheral vascular disease. Otherwise patient denied any complaints of cough or sputum production. No fever chills. No recent illnesses otherwise. No nausea vomiting diarrhea. Patient is hard of hearing and is also poor historian. 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 Chronic renal disease. Cardiomegaly, coronary calcification and basilar atelectasis or scar favor over infiltrate. Correlate for cystitis. Gallbladder hydrops without evidence of gallstones. Gastric wall thickening likely related to incomplete distention. Correlate clinically for mild gastritis. Troponin 0.014 and 0.173 BNP 5830 WBC 13.2 UA negative Ultrasound of the abdomen showed gallbladder is hydropic with a small amount of pericholecystic fluid. Gallbladder wall measures 6 mm. Correlate for cholecystitis. 11/20/2018 Patient denied any complaints of chest pain. Patient does complain of right upper quadrant abdominal pain. General surgery and cardiology is following. General surgery recommends cholecystectomy but patient is not a surgical candidate at this time. Cardiology recommends no further workup at this time. Continue with current medical management. Otherwise patient is being continued on pain medications and follow closely. No fever no chills. Creatinine 2.27, his B A1c 10.8, troponin peaked at 7.29, hemoglobin 9.7 2-D echo showed his ejection fraction 35-40%. Mild to moderate pulmonary hypertension. Chest x-ray showed overall stable findings. Chronic parenchymal changes and cardiomegaly without acute pulmonary process. Current medications reviewed. Objective - Vital Signs Vital signs: Vital Signs Temp 98.0 F 11/20/18 20:28 Pulse 67 11/20/18 20:28 Resp 18 11/20/18 20:28 BP 117/56 11/20/18 20:28 Pulse Ox 93 L 11/20/18 20:28 Intake & Output 11/20/18 11/20/18 11/21/18 06:59 18:59 06:59 Intake Total 247.857 85.943 96.2 Output Total 1000 900 600 Balance -752.143 -814.057 -503.8 Weight 90.5 kg 90.5 kg Intake: IV 180 0.9 90 Heparin Sod,Pork in 0.45% 90 NaCl 25,000 unit In 0.45 % NaCl 1 250ml.bag @ 11 UNITS/KG/HR 9.979 mls/hr IV .Q24H [facility] Rx#: [id number] Intake, IV Titration 67.857 85.943 96.2 Amount Heparin Sod,Pork in 0.45% 67.857 85.943 96.2 NaCl 25,000 unit In 0.45 % NaCl 1 250ml.bag @ 11 UNITS/KG/HR 9.979 mls/hr IV .Q24H [facility] Rx#: [id number] Output: Urine 1000 900 600 Other: Voiding Method Urinal Urinal Urinal # Voids 1 1 - Exam PHYSICAL EXAMINATION: Patient is lying in the bed comfortably, no acute distress, awake alert and oriented. Hard of hearing. HEENT: Normocephalic. Neck is supple. Pupils reactive. Nostrils clear. Oral cavity is moist. Ears reveal no drainage. Neck reveals no JVD, carotid bruits, or thyromegaly. CHEST EXAMINATION: Trachea is central. Symmetrical expansion. Bibasilar diminished air entry and scattered rhonchi. No wheezing.. CARDIAC: Normal S1, S2 with no gallops. No murmurs ABDOMEN: Soft. Bowel sounds normal. No organomegaly. No abdominal bruits. Extremities: Right BKA. Left leg 2+ edema. No clubbing or cyanosis Neurologically awake, alert, oriented x2-3 with well-coordinated movements. Hard of hearing. No focal deficits noted Skin: No rash or skin lesions. Psychiatric: Coperative. Nonsuicidal Musculoskeletal: No joint swelling or deformity. Normal range of motion. - Labs CBC & Chem 7: 11/22/18 06:56 11/22/18 06:56 Labs: Abnormal Lab Results - Last 24 Hours (Table) 11/19/18 11/19/18 11/20/18 Range/Units 20:41 20:57 03:31 RBC 3.44 L 3.34 L (4.30-5.90) m/uL Hgb 10.5 L 9.7 L (13.0-17.5) gm/dL Hct 31.9 L 30.8 L (39.0-53.0) % Neutrophils # 8.1 H (1.3-7.7) k/uL APTT (22.0-30.0) sec BUN (9-20) mg/dL Creatinine (0.66-1.25) mg/dL Glucose (74-99) mg/dL POC Glucose (mg/dL) 113 H (75-99) mg/dL ALT (21-72) U/L Total Protein (6.3-8.2) g/dL Albumin (3.5-5.0) g/dL 11/20/18 11/20/18 11/20/18 Range/Units 03:31 03:31 04:45 RBC (4.30-5.90) m/uL Hgb (13.0-17.5) gm/dL Hct (39.0-53.0) % Neutrophils # (1.3-7.7) k/uL APTT 36.7 H (22.0-30.0) sec BUN 29 H (9-20) mg/dL Creatinine 2.27 H (0.66-1.25) mg/dL Glucose 116 H (74-99) mg/dL POC Glucose (mg/dL) 116 H (75-99) mg/dL ALT 8 L (21-72) U/L Total Protein 5.7 L (6.3-8.2) g/dL Albumin 3.1 L (3.5-5.0) g/dL 11/20/18 11/20/18 11/20/18 Range/Units 10:54 11:34 16:36 RBC (4.30-5.90) m/uL Hgb (13.0-17.5) gm/dL Hct (39.0-53.0) % Neutrophils # (1.3-7.7) k/uL APTT 61.0 H (22.0-30.0) sec BUN (9-20) mg/dL Creatinine (0.66-1.25) mg/dL Glucose (74-99) mg/dL POC Glucose (mg/dL) 139 H 187 H (75-99) mg/dL ALT (21-72) U/L Total Protein (6.3-8.2) g/dL Albumin (3.5-5.0) g/dL 11/20/18 Range/Units 20:30 RBC (4.30-5.90) m/uL Hgb (13.0-17.5) gm/dL Hct (39.0-53.0) % Neutrophils # (1.3-7.7) k/uL APTT (22.0-30.0) sec BUN (9-20) mg/dL Creatinine (0.66-1.25) mg/dL Glucose (74-99) mg/dL POC Glucose (mg/dL) 129 H (75-99) mg/dL ALT (21-72) U/L Total Protein (6.3-8.2) g/dL Albumin (3.5-5.0) g/dL Assessment and Plan Assessment: Acute non-ST elevated CA with troponin trending . Cardiology recommends medical management. Acute CHF with systolic dysfunction. Ejection fraction 35-40%. Hydropic gallbladder. Acute cholecystitis can't be excluded. Seen by general surgery.. History of coronary artery disease and CABG and valve replacement 4 years ago Parkinson's disease Obesity with BMI 32.3 Acute on Chronic kidney disease stage III creatinine 1.42--2.27 Peripheral vascular disease Diabetes type 2 Right below knee amputation History of TIA with right ocular nerve palsy Hard of hearing Plan: Patient will be continued on telemetry monitoring. Serial troponins. Patient will be continued on IV heparin for 48 hours. and cardiology is following. Recommends medical management at this time.. Gen. surgery was consulted as well for possible acute cholecystitis. Patient is not a surgical candidate. Continue with aspirin statins and Plavix. Continue with IV Lasix. Patient is bradycardic with heart rate around 50s. Patient was started on low-dose beta blockers. We will follow up closely. Further recommendations based on the clinical course. Prognosis is guarded. Monitor renal function and CBC and CMP tomorrow. Time with Patient: Greater than 30
--- NOTE | 2018-12-02 12:58 | P.PN ---
Subjective Progress Note Date: 11/21/18 Principal diagnosis: Acute non-ST elevated WI Right upper quadrant abdominal pain with possible cholecystitis. Not a surgical candidate. Acute CHF with systolic dysfunction Patient is a 78-year-old male with a known history of diabetes type 2, peripheral vascular disease, right BKA, coronary artery disease history of valve replacement and triple bypass in [facility] 4 years ago, hypertension, hyperlipidemia, chronic renal disease and other multiple medical problems including history obesity morbid and see ER with complaints of chest pain acting up again. Pain is mainly in the midsternal and epigastric region. Patient felt very weak and could not stand up. Patient also having increased left lower activity swelling as well. Patient also was having worsening shortness of breath which made him come to the hospital. Patient follows with Dr. Donald per his peripheral vascular disease. Otherwise patient denied any complaints of cough or sputum production. No fever chills. No recent illnesses otherwise. No nausea vomiting diarrhea. Patient is hard of hearing and is also poor historian. 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 Chronic renal disease. Cardiomegaly, coronary calcification and basilar atelectasis or scar favor over infiltrate. Correlate for cystitis. Gallbladder hydrops without evidence of gallstones. Gastric wall thickening likely related to incomplete distention. Correlate clinically for mild gastritis. Troponin 0.014 and 0.173 BNP 5830 WBC 13.2 UA negative Ultrasound of the abdomen showed gallbladder is hydropic with a small amount of pericholecystic fluid. Gallbladder wall measures 6 mm. Correlate for cholecystitis. 11/20/2018 Patient denied any complaints of chest pain. Patient does complain of right upper quadrant abdominal pain. General surgery and cardiology is following. General surgery recommends cholecystectomy but patient is not a surgical candidate at this time. Cardiology recommends no further workup at this time. Continue with current medical management. Otherwise patient is being continued on pain medications and follow closely. No fever no chills. Creatinine 2.27, his B A1c 10.8, troponin peaked at 7.29, hemoglobin 9.7 2-D echo showed his ejection fraction 35-40%. Mild to moderate pulmonary hypertension. Chest x-ray showed overall stable findings. Chronic parenchymal changes and cardiomegaly without acute pulmonary process. 11/21/2018 Patient denied any complaints of chest pain or shortness of breath today. Lasix changed to by mouth. Denied any complaints of abdominal pain as well. Patient is being followed by general surgery and cardiology. Cardiology recommends no further intervention at this time. Patient is not a candidate for surgery as well. Symptomatically improving. Anticipate discharge in next 24-48 hours. Creatinine level is 2.25 today. Current medications reviewed. Objective - Vital Signs Vital signs: Vital Signs Temp 97.6 F 11/21/18 19:49 Pulse 59 L 11/21/18 19:49 Resp 16 11/21/18 19:49 BP 123/55 11/21/18 19:49 Pulse Ox 96 11/21/18 19:49 Intake & Output 11/21/18 11/21/18 11/22/18 06:59 18:59 06:59 Intake Total 96.2 999.719 Output Total 1000 450 350 Balance -903.8 549.719 -350 Weight 91 kg Intake: Intake, IV Titration 96.2 179.719 Amount Heparin Sod,Pork in 0.45% 96.2 179.719 NaCl 25,000 unit In 0.45 % NaCl 1 250ml.bag @ 11 UNITS/KG/HR 9.979 mls/hr IV .Q24H RENETTA Rx#: [id number] Oral 820 Output: Urine 1000 450 350 Other: Voiding Method Urinal Urinal # Voids 1 1 - Exam PHYSICAL EXAMINATION: Patient is lying in the bed comfortably, no acute distress, awake alert and oriented. Hard of hearing. HEENT: Normocephalic. Neck is supple. Pupils reactive. Nostrils clear. Oral cavity is moist. Ears reveal no drainage. Neck reveals no JVD, carotid bruits, or thyromegaly. CHEST EXAMINATION: Trachea is central. Symmetrical expansion. Bibasilar air entry improved. No wheezing.. CARDIAC: Normal S1, S2 with no gallops. No murmurs ABDOMEN: Soft. Bowel sounds normal. No organomegaly. No abdominal bruits. Extremities: Right BKA. Left leg 2+ edema. No clubbing or cyanosis Neurologically awake, alert, oriented x2-3 with well-coordinated movements. Hard of hearing. No focal deficits noted Skin: No rash or skin lesions. Psychiatric: Coperative. Nonsuicidal Musculoskeletal: No joint swelling or deformity. Normal range of motion. - Labs CBC & Chem 7: 11/22/18 06:56 11/22/18 06:56 Labs: Abnormal Lab Results - Last 24 Hours (Table) 11/21/18 11/21/18 11/21/18 Range/Units 06:11 06:11 06:11 RBC 3.47 L (4.30-5.90) m/uL Hgb 10.1 L (13.0-17.5) gm/dL Hct 31.2 L (39.0-53.0) % APTT 53.5 H (22.0-30.0) sec BUN 45 H (9-20) mg/dL Creatinine 2.25 H (0.66-1.25) mg/dL POC Glucose (mg/dL) (75-99) mg/dL Calcium 8.3 L (8.4-10.2) mg/dL 11/21/18 11/21/18 11/21/18 Range/Units 10:53 16:26 20:59 RBC (4.30-5.90) m/uL Hgb (13.0-17.5) gm/dL Hct (39.0-53.0) % APTT (22.0-30.0) sec BUN (9-20) mg/dL Creatinine (0.66-1.25) mg/dL POC Glucose (mg/dL) 249 H 409 H 156 H (75-99) mg/dL Calcium (8.4-10.2) mg/dL Assessment and Plan Assessment: Acute non-ST elevated WI with troponin trending . Cardiology recommends medical management. Acute CHF with systolic dysfunction. Ejection fraction 35-40%. Hydropic gallbladder. Acute cholecystitis can't be excluded. Seen by general surgery.. History of coronary artery disease and CABG and valve replacement 4 years ago Parkinson's disease Obesity with BMI 32.3 Acute on Chronic kidney disease stage III creatinine 1.42--2.27--2.25 Peripheral vascular disease Diabetes type 2 Right below knee amputation History of TIA with right ocular nerve palsy Hard of hearing Plan: Patient will be continued on telemetry monitoring. Serial troponins. Patient was continued on IV heparin for 48 hours. and cardiology is following. Recommends medical management at this time.. Gen. surgery was consulted as well for possible acute cholecystitis. Patient is not a surgical candidate. Continue with aspirin statins and Plavix. Continued with IV Lasix. Change to by mouth. Patient is bradycardic with heart rate around 50s. Patient was started on low-dose beta blockers. We will follow up closely. Further recommendations based on the clinical course. Prognosis is guarded. Time with Patient: Greater than 30
--- NOTE | 2018-12-02 13:00 | P.DS ---
Providers Date of admission: 11/20/18 12:02 Expected date of discharge: 11/22/18 Attending physician: Eddie Coyne Consults: 11/19/18 13:15 Consult Physician Routine Consulting Provider: Brice Schuster Consult Reason/Comments: Dx Cholecysistits Do you want consulting provider notified?: Yes, Notify in am 11/19/18 14:00 Consult Physician Routine Consulting Provider: Yury Rodriguez Consult Reason/Comments: elevated troponin Do you want consulting provider notified?: Yes [facility] care physician[facility] Course: Discharge diagnosis Acute non-ST elevated LA with troponin trending . Cardiology recommends medical management. Acute CHF with systolic dysfunction. Ejection fraction 35-40%. Hydropic gallbladder. Acute cholecystitis can't be excluded. Seen by general surgery.. History of coronary artery disease and CABG and valve replacement 4 years ago Parkinson's disease Obesity with BMI 32.3 Acute on Chronic kidney disease stage III creatinine 1.42--2.27--2.25 Peripheral vascular disease Diabetes type 2 Right below knee amputation History of TIA with right ocular nerve palsy Hard of hearing Hospital course Patient is a 78-year-old male with a known history of diabetes type 2, peripheral vascular disease, right BKA, coronary artery disease history of valve replacement and triple bypass in [facility] 4 years ago, hypertension, hyperlipidemia, chronic renal disease and other multiple medical problems including history obesity morbid and see ER with complaints of chest pain acting up again. Pain is mainly in the midsternal and epigastric region. Patient felt very weak and could not stand up. Patient also having increased left lower activity swelling as well. Patient also was having worsening shortness of breath which made him come to the hospital. Patient follows with Dr. Donald per his peripheral vascular disease. Otherwise patient denied any complaints of cough or sputum production. No fever chills. No recent illnesses otherwise. No nausea vomiting diarrhea. Patient is hard of hearing and is also poor historian. 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 Chronic renal disease. Cardiomegaly, coronary calcification and basilar atelectasis or scar favor over infiltrate. Correlate for cystitis. Gallbladder hydrops without evidence of gallstones. Gastric wall thickening likely related to incomplete distention. Correlate clinically for mild gastritis. Troponin 0.014 and 0.173 BNP 5830 WBC 13.2 UA negative Ultrasound of the abdomen showed gallbladder is hydropic with a small amount of pericholecystic fluid. Gallbladder wall measures 6 mm. Correlate for cholecystitis. 11/20/2018 Patient denied any complaints of chest pain. Patient does complain of right upper quadrant abdominal pain. General surgery and cardiology is following. General surgery recommends cholecystectomy but patient is not a surgical candidate at this time. Cardiology recommends no further workup at this time. Continue with current medical management. Otherwise patient is being continued on pain medications and follow closely. No fever no chills. Creatinine 2.27, his B A1c 10.8, troponin peaked at 7.29, hemoglobin 9.7 2-D echo showed his ejection fraction 35-40%. Mild to moderate pulmonary hypertension. Chest x-ray showed overall stable findings. Chronic parenchymal changes and cardiomegaly without acute pulmonary process. 11/21/2018 Patient denied any complaints of chest pain or shortness of breath today. Lasix changed to by mouth. Denied any complaints of abdominal pain as well. Patient is being followed by general surgery and cardiology. Cardiology recommends no further intervention at this time. Patient is not a candidate for surgery as well. Symptomatically improving. Anticipate discharge in next 24-48 hours. Creatinine level is 2.25 today. 11/22/2018 Patient denied any complaints of chest pain or shortness of breath today. Does have mild epigastric discomfort. Otherwise no acute overnight issues. Hemodynamically stable. Recommend to follow with general surgery clinic for elective cholecystectomy. Follow with cardiology and primary care physician. Patient is being discharged home today. Patient was continued on telemetry monitoring. Serial troponins. Patient was continued on IV heparin for 48 hours. and cardiology has seen the patient. Recommends medical management at this time.. Gen. surgery was consulted as well for possible acute cholecystitis. Patient is not a surgical candidate. Continue with aspirin statins and Plavix. Continued with IV Lasix. Change to by mouth. Patient is bradycardic with heart rate around 50s. Patient was started on low-dose beta blockers. Prognosis is guarded. PHYSICAL EXAMINATION: Patient is lying in the bed comfortably, no acute distress, awake alert and oriented. Hard of hearing. HEENT: Normocephalic. Neck is supple. Pupils reactive. Nostrils clear. Oral cavity is moist. Ears reveal no drainage. Neck reveals no JVD, carotid bruits, or thyromegaly. CHEST EXAMINATION: Trachea is central. Symmetrical expansion. Bibasilar air entry improved. No wheezing.. CARDIAC: Normal S1, S2 with no gallops. No murmurs ABDOMEN: Soft. Bowel sounds normal. No organomegaly. No abdominal bruits. Extremities: Right BKA. Left leg 1+ edema. No clubbing or cyanosis Neurologically awake, alert, oriented x2-3 with well-coordinated movements. Hard of hearing. No focal deficits noted Skin: No rash or skin lesions. Psychiatric: Coperative. Nonsuicidal Musculoskeletal: No joint swelling or deformity. Normal range of motion. Discharge vitals reviewed. Total time taken greater than 35 minutes including 18 minutes for counseling and coordination of care. Patient Condition at Discharge: Poor Plan - Discharge Summary New Discharge Prescriptions: New Metoprolol Tartrate [Lopressor] 12.5 mg PO BID #30 dose Continue Atorvastatin [Lipitor] 80 mg PO HS Aspirin 325 mg PO DAILY Gabapentin 400 mg PO TID Carbidopa-Levodopa 25-100 mg [Sinemet 25-100 mg] 1 tab PO TID Torsemide [Demadex] 20 mg PO BID Insulin NPH Hum/Reg Insulin Hm [NovoLIN 70-30 100 UNIT/ML VIAL] 50 unit SQ AC-BID Famotidine [Pepcid] 20 mg PO DAILY Multivitamin [Men's Multi-Vitamin] 1 each PO DAILY Ergocalciferol (Vitamin D2) [Vitamin D2] 50,000 unit PO Q30D Clopidogrel [Plavix] 75 mg PO DAILY Allopurinol [Zyloprim] 100 mg PO DAILY Calcitriol [Rocaltrol] 0.25 mcg PO Q7D Calcium Acetate [PhosLo] 667 mg PO DAILY Discontinued Metoprolol Tartrate 50 mg PO QAM Discharge Medication List Aspirin 325 mg PO DAILY 07/29/15 [History] Atorvastatin [Lipitor] 80 mg PO HS 07/29/15 [History] Carbidopa-Levodopa 25-100 mg [Sinemet 25-100 mg] 1 tab PO TID 07/29/15 [History] Gabapentin 400 mg PO TID 07/29/15 [History] Insulin NPH Hum/Reg Insulin Hm [NovoLIN 70-30 100 UNIT/ML VIAL] 50 unit SQ AC- BID 01/31/18 [History] Torsemide [Demadex] 20 mg PO BID 01/31/18 [History] Famotidine [Pepcid] 20 mg PO DAILY 04/07/18 [History] Allopurinol [Zyloprim] 100 mg PO DAILY 07/08/18 [History] Clopidogrel [Plavix] 75 mg PO DAILY 07/08/18 [History] Ergocalciferol (Vitamin D2) [Vitamin D2] 50,000 unit PO Q30D 07/08/18 [History] Multivitamin [Men's Multi-Vitamin] 1 each PO DAILY 07/08/18 [History] Calcitriol [Rocaltrol] 0.25 mcg PO Q7D 11/19/18 [History] Calcium Acetate [PhosLo] 667 mg PO DAILY 11/19/18 [History] Metoprolol Tartrate [Lopressor] 12.5 mg PO BID #30 dose 11/22/18 [Rx] Follow up Appointment(s)/Referral(s): Bang Jordan DO [REFERRING] - 1 Week ([facility].) Nathan Jimenez DO [Primary Care Provider] - 1-2 days (Please call office to make a follow up appointment) Brice Schuster MD [STAFF PHYSICIAN] - 1 Week (Please call office to make a follow up appointment) Patient Instructions/Handouts: Cholecystitis (GEN), Low Fat Diet (DC), Basic Carbohydrate Counting (DC) Discharge Disposition: HOME WITH HOME HEALTH SERVICES
== END 2018-11-22 17:13 | disposition home health service (06) | DRG 280 ==
LOC: EC 05:35 → 3SCARD 07:54 → OBSVTOIN 11-20 12:02
PROVIDERS: ADMIT Hospitalist; ATTEND Hospitalist
DX: I21.4 Non-ST elevation (NSTEMI) myocardial infarction (principal); I50.23 Acute on chronic systolic (congestive) heart failure; N17.9 Acute kidney failure, unspecified; K82.1 Hydrops of gallbladder; I13.0 Hypertensive heart and chronic kidney disease with heart failure and stage 1 through stage 4 chronic kidney disease, or unspecified chronic kidney disease; K81.0 Acute cholecystitis; I25.10 Atherosclerotic heart disease of native coronary artery without angina pectoris; Z68.32 Body mass index [BMI] 32.0-32.9, adult; E11.22 Type 2 diabetes mellitus with diabetic chronic kidney disease; N18.3 Chronic kidney disease, stage 3 (moderate); I27.20 Pulmonary hypertension, unspecified; D64.9 Anemia, unspecified; E11.51 Type 2 diabetes mellitus with diabetic peripheral angiopathy without gangrene; E78.5 Hyperlipidemia, unspecified; G20 Parkinson's disease; H91.90 Unspecified hearing loss, unspecified ear; E66.01 Morbid (severe) obesity due to excess calories; K57.10 Diverticulosis of small intestine without perforation or abscess without bleeding; E66.9 Obesity, unspecified; K29.70 Gastritis, unspecified, without bleeding; I44.0 Atrioventricular block, first degree; I69.898 Other sequelae of other cerebrovascular disease; Z95.1 Presence of aortocoronary bypass graft; Z89.511 Acquired absence of right leg below knee; Z82.49 Family history of ischemic heart disease and other diseases of the circulatory system; Z83.3 Family history of diabetes mellitus; Z79.82 Long term (current) use of aspirin; Z79.899 Other long term (current) drug therapy; Z79.4 Long term (current) use of insulin; Z95.2 Presence of prosthetic heart valve; Z79.02 Long term (current) use of antithrombotics/antiplatelets; Z98.42 Cataract extraction status, left eye; Z98.41 Cataract extraction status, right eye
CPT/HCPCS: 36415; 71045; 74176; 76705; 80048; 80053; 81003; 82150; 83036; 83605; 83690; 83735; 83880; 84484; 85025; 85610; 85730; 87502; 93005; 93306; 96374; 96375; 99285

== ENCOUNTER 2019-03-28 09:35 | Inpatient (IN) | payer MEDICARE ==
--- NOTE | 2019-03-28 09:55 | ED ---
Chest Pain HPI - General Chief Complaint: Chest Pain Stated Complaint: CHEST PAIN Time Seen by Provider: 03/28/19 09:42 Source: EMS, RN notes reviewed, old records reviewed Mode of arrival: EMS Limitations: no limitations - History of Present Illness Initial Comments: This is an 78-year-old male the ER for evaluation, patient resents today for evaluation regards to chest pain. This is chest pain that happened last night. Chest pain is now resolved. Patient does have history of diabetes high blood pressure high cholesterol. Again chest pain currently resolved. Patient's brought in by EMS with no shortness of breath, no significant diaphoresis no provocation improving factors MD Complaint: chest pain -: days(s) Onset: during rest Pain Location: substernal, left chest Pain Radiation: none Severity: mild Severity scale (1-10): 2 Quality: heaviness Consistency: constant Improves With: nothing Worsens With: nothing Anginal Symptoms: dyspnea, other (resolved) Treatments Prior to Arrival: none - Related Data Home Medications Medication Instructions Recorded Confirmed Aspirin 325 mg PO DAILY 07/29/15 03/28/19 Atorvastatin [Lipitor] 80 mg PO HS 07/29/15 03/28/19 Carbidopa-Levodopa 25-100 mg 1 tab PO TID 07/29/15 03/28/19 [Sinemet 25-100 mg] Gabapentin 400 mg PO TID 07/29/15 03/28/19 Insulin NPH Hum/Reg Insulin Hm 50 unit SQ AC-BID 01/31/18 03/28/19 [NovoLIN 70-30 100 UNIT/ML VIAL] Torsemide [Demadex] 20 mg PO BID 01/31/18 03/28/19 Famotidine [Pepcid] 20 mg PO DAILY 04/07/18 03/28/19 Allopurinol [Zyloprim] 100 mg PO DAILY 07/08/18 03/28/19 Clopidogrel [Plavix] 75 mg PO DAILY 07/08/18 03/28/19 Ergocalciferol (Vitamin D2) 50,000 unit PO Q30D 07/08/18 03/28/19 [Vitamin D2] Multivitamin [Men's Multi-Vitamin] 1 tab PO DAILY 07/08/18 03/28/19 Calcitriol [Rocaltrol] 0.25 mcg PO MO 11/19/18 03/28/19 Calcium Acetate [PhosLo] 667 mg PO DAILY 11/19/18 03/28/19 Metoprolol Tartrate [Lopressor] 50 mg PO DAILY 03/28/19 03/28/19 Allergies Allergy/AdvReac Type Severity Reaction Status Date / Time No Known Allergies Allergy Verified 03/28/19 10:39 Review of Systems ROS Statement: Those systems with pertinent positive or pertinent negative responses have been documented in the HPI. ROS Other: All systems not noted in ROS Statement are negative. EKG Findings - EKG Comments: EKG Findings:: EKG shows sinus rhythm rate of 73, IN 242, QRS 122, QTc 480 Past Medical History Past Medical History: CVA/TIA, Diabetes Mellitus, Hyperlipidemia, Hypertension, Musculoskeletal Disorder, Neurologic Disorder, Renal Disease, Vascular Disorder Additional Past Medical History / Comment(s): CVA-pt states no deficits, TIA-R ocular nerve palsy, R third nerve palsy, parkinson's,. HIGH POTASSIUM 03/07/18- POTASSIUM PILL DISCONTINUED History of Any Multi-Drug Resistant Organisms: None Reported Past Surgical History: Coronary Bypass/CABG, Heart Catheterization, Tonsillec bryce Additional Past Surgical History / Comment(s): colonoscopy, bilateral cataract removal, right below knee amputation, valve replacement & triple bypass in [facility] 4 yrs. ago,aortogram Past Anesthesia/Blood Transfusion Reactions: No Reported Reaction Additional Past Anesthesia/Blood Transfusion Reaction / Comment(s): no hx blood transfusion Past Psychological History: No Psychological Hx Reported Smoking Status: Never smoker - Past Family History Father Family Medical History: Coronary Artery Disease (CAD) Additional Family Medical History / Comment(s): Father had CABG. He at age 93yrs. Mother Family Medical History: Diabetes Mellitus Additional Family Medical History / Comment(s): Mother at age 83 yrs. General Exam Limitations: no limitations General appearance: alert, in no apparent distress Head exam: Present: atraumatic, normocephalic, normal inspection Eye exam: Present: normal appearance, PERRL, EOMI. Absent: scleral icterus, conjunctival injection, periorbital swelling ENT exam: Present: normal exam, mucous membranes moist Neck exam: Present: normal inspection. Absent: tenderness, meningismus, lymphadenopathy Respiratory exam: Present: normal lung sounds bilaterally. Absent: respiratory distress, wheezes, rales, rhonchi, stridor Cardiovascular Exam: Present: regular rate, normal rhythm, normal heart sounds. Absent: systolic murmur, diastolic murmur, rubs, gallop, clicks GI/Abdominal exam: Present: soft, normal bowel sounds. Absent: distended, t enderness, guarding, rebound, rigid Extremities exam: Present: normal inspection, full ROM, normal capillary refill. Absent: tenderness, pedal edema, joint swelling, calf tenderness Back exam: Present: normal inspection Neurological exam: Present: alert, oriented X3, CN II-XII intact Psychiatric exam: Present: normal affect, normal mood Skin exam: Present: warm, dry, intact, normal color. Absent: rash Course Vital Signs 03/28/19 03/28/19 03/28/19 09:36 09:43 10:45 Temperature 98.4 F Pulse Rate 80 81 Pulse Rate [ 80 Orchestra Conductor ] Respiratory 24 24 Rate Blood Pressure 160/62 115/57 O2 Sat by Pulse 99 97 Oximetry 03/28/19 03/28/19 11:51 11:56 Temperature Pulse Rate 69 Pulse Rate [ Orchestra Conductor ] Respiratory 16 16 Rate Blood Pressure 137/56 O2 Sat by Pulse 99 Oximetry - Reevaluation(s) Reevaluation #1: 03/28/19 12:31 Medical history is reviewed Reevaluation #2: 03/28/19 12:31 A she is without pain without current shortness of breath but was significantly short of breath earlier in the day Chest Pain MDM - MDM 78-year-old male the ER for evasive chest pain shortness of breath, patient's in CHF significant medical history with multiple comorbidities's. Will be admitted for cardiology observation Disposition Clinical Impression: Chest pain, Acute renal failure, Acute exacerbation of CHF (congestive heart failure) Disposition: ADMITTED IP TO THIS HOSP Condition: Fair Is patient prescribed a controlled substance at d/c from ED?: No
[2019-03-28 10:11] LABS: Anisocytosis Slight; Basophils % (A) 0 %; Eosinophils # (A) 0.3 k/uL (0-0.7); Eosinophils % (A) 3 %; HCT 35.5 % (39.0-53.0); HGB 11.2 gm/dL (13.0-17.5); Lymphocytes # (A) 1.6 k/uL (1.0-4.8); Lymphocytes % (A) 16 %; MCH 29.8 pg (25.0-35.0); MCHC 31.6 g/dL (31.0-37.0); MCV 94.3 fL (80.0-100.0); Mean Platelet Volume 8.9; Monocytes # (A) 0.5 k/uL (0-1.0); Monocytes % (A) 5 %; Neutrophils # (A) 7.4 k/uL (1.3-7.7); Neutrophils % (A) 74 %; Platelet Count 226 k/uL (150-450); RBC 3.77 m/uL (4.30-5.90); RDW 16.4 % (11.5-15.5)
[2019-03-28 10:12] LABS: Calcium 9.3 mg/dL (8.4-10.2); Magnesium 2.3 mg/dL (1.6-2.3); Potassium 4.4 mmol/L (3.5-5.1); Total Bilirubin 0.7 mg/dL (0.2-1.3); Total Protein 7.1 g/dL (6.3-8.2)
[2019-03-28 10:18] LABS: INR 0.9 (<1.2); Prothrombin Time 10.1 sec (9.0-12.0)
--- NOTE | 2019-03-28 10:45 | XR ---
EXAMINATION TYPE: XR chest 2V DATE OF EXAM: 03/28/2019 COMPARISON: 11/20/2018 TECHNIQUE: PA and lateral views submitted. HISTORY: Shortness of breath FINDINGS: Heart irregular, diffuse interstitial pattern, bilateral infiltrate, bilateral pleural effusion and p ostsurgical changes. Arthropathy of the shoulders. IMPRESSION: 1. Correlate for CHF. Underlying infiltrate not excluded.
[2019-03-28] MEDS: FUROSEMIDE 10 MG/ML 4 ML VIAL IV SCH ×2 (11:48→21:51)
[2019-03-28 21:00] LABS: Glucose,Whole Blood 301 mg/dL (75-99)
[2019-03-28] MEDS: GABAPENTIN 400 MG CAP PO SCH (21:51)
[2019-03-28] MEDS: ATORVASTATIN 80 MG TAB PO SCH (21:51)
[2019-03-28] MEDS: CARBIDOPA-LEVODOPA 25-100 MG 1 EACH TAB PO SCH (21:51)
--- NOTE | 2019-03-28 23:52 | HP ---
HISTORY AND PHYSICAL DATE OF SERVICE: 03/28/2019 CHIEF COMPLAINT: Shortness of breath and chest pain and left leg pain. HISTORY OF PRESENT ILLNESS: This 78-year-old gentleman with a past medical history of multiple medical problems including CVA, TIA, diabetes type 2, hypertension, hyperlipidemia, myocardial infarction, history of CVA, history of right below-knee amputation, being followed by Dr. Jimenez in the outpatient setting. The patient was complaining of chest pain which is felt in the anterior part of the chest. The pain was last night the pain was mild to moderate without radiation. The patient also has shortness of breath. The patient also complaining of pain and swelling of the right the left leg with some erythema also. There is no history of fever, rigors, chills at this time. PAST MEDICAL HISTORY: CVA, TIA, diabetes, hypertension, hyperlipidemia, history of myocardial infarction and CVA. MEDICATIONS: Prior to admission home medications are: 1. Rocaltrol 0.25 mg p.o. Saturday. 2. Lipitor 80 mg q.h.s. 3. Multivitamins 1 daily. 4. Gabapentin 400 mg t.i.d. 5. Vitamin B2 50,000 q30 days. 6. Plavix 75 mg p.o. daily. 7. PhosLo 667 p.o. daily. 8. Aspirin 320 mg daily. 9. Zyloprim 100 mg p.o. daily. 10.Demadex 20 mg p.o. b.i.d. 11.Lopressor 50 mg p.o. daily. 12.Novolin 70/30, 50 units subcu b.i.d. 13.Pepcid 20 mg daily. 14.Sinemet 25/100 1 p.o. t.i.d. ALLERGIES: None. FAMILY HISTORY: History of CAD in the family. SOCIAL HISTORY: No history of smoking. No history of alcohol intake. REVIEW OF SYSTEMS: ENT: Diminished vision. Diminished hearing. CARDIOVASCULAR: As mentioned earlier. RESPIRATORY: As mentioned earlier. GI no nausea or vomiting. as mentioned earlier. NERVOUS SYSTEM: No numbness or weakness. ALLERGY/IMMUNOLOGY: No asthma or hayfever. MUSCULOSKELETAL: As mentioned earlier. HEMATOLOGY/ONCOLOGY: No history of anemia. ENDOCRINE as mentioned earlier. CONSTITUTIONAL: As mentioned earlier. DERMATOLOGY: Negative. RHEUMATOLOGY negative. PSYCHIATRY as mentioned earlier. PHYSICAL EXAMINATION: Alert and oriented times three. Pulse 67, blood pressure 160/74, respirations 16, temperature is 97.8, pulse ox 99% on 2 L. HEENT: Conjunctivae normal. Oral mucosa moist. NECK is no jugular venous distention. No carotid bruit. No lymph node enlargement. Cardiovascular system: Ejection systolic murmur, mainly heard in the apex and as well as left sternal border. No S3, no S4. RESPIRATORY: Breath sounds diminished in the bases. A few scattered rhonchi. No crackles. ABDOMEN: Soft, obese, nontender. No mass. LEGS: Right leg below-knee amputation. Left leg significant swelling and erythema and tenderness also present, significant cellulitis also present especially in the lower leg and as well as foot. NERVOUS SYSTEM: Higher functions as mentioned earlier. Moves all four limbs. No focal motor or sensory deficits. LYMPHATICS: No lymph nodes palpable in the neck, axillae or groin. SKIN: No ulcer, no rashes and no bleeding. JOINTS: No active deforming arthropathy. LABS: WBC 10, hemoglobin 11.2. Creatinine is 1.76. Troponin 0.046. ASSESSMENT: 1. Chest pain possible unstable angina. Rule out acute non ST segment elevation myocardial infarction, troponin 0.046. 2. Left leg swelling and acute cellulitis. 3. Increased creatinine with possibly chronic kidney disease stage III. 4. Diabetes mellitus type 2. 5. History of cerebrovascular accident, transient ischemic attack. 6. Status post right below-knee amputation. 7. Hypertension. 8. Hyperlipidemia. 9. History of peripheral vascular disease. 11.History of Parkinson's. 12.History of coronary artery disease, coronary artery bypass grafting. RECOMMENDATIONS AND DISCUSSION: In this 78-year-old gentleman who presented with multiple complex medical issues, at this time I recommend to continue current medications, continue symptomatic treatment. Otherwise at this time resume the home medications, broad-spectrum antibiotics. Cardiology consultation. 2D echo with Doppler. Otherwise, prognosis guarded because of multiple complex medical issues. Further recommendations to follow. We will also obtain infectious disease evaluation with Dr. Kebede also. MMODL / IJN: [id number] / CARIE
[2019-03-29] MEDS: FUROSEMIDE 10 MG/ML 4 ML VIAL IV SCH ×3 (05:22→20:36)
[2019-03-29 06:06] LABS: Glucose,Whole Blood 220 mg/dL (75-99)
[2019-03-29 06:35] LABS: Basophils % (A) 0 %; Eosinophils # (A) 0.2 k/uL (0-0.7); Eosinophils % (A) 3 %; HCT 33.4 % (39.0-53.0); HGB 10.5 gm/dL (13.0-17.5); Hypochromasia Slight; Lymphocytes # (A) 1.6 k/uL (1.0-4.8); Lymphocytes % (A) 18 %; MCH 30.6 pg (25.0-35.0); MCHC 31.5 g/dL (31.0-37.0); Mean Platelet Volume 9.1; Monocytes # (A) 0.5 k/uL (0-1.0); Monocytes % (A) 6 %; Neutrophils % (A) 70 %; Platelet Count 203 k/uL (150-450); RBC 3.45 m/uL (4.30-5.90); RDW 15.7 % (11.5-15.5); WBC 8.6 k/uL (3.8-10.6)
[2019-03-29 06:44] LABS: Calcium 8.6 mg/dL (8.4-10.2); Potassium 4.6 mmol/L (3.5-5.1)
[2019-03-29] MEDS: INSULN ASP PRT/INSULIN ASPART 100 UNIT/ML 10 ML VIAL SQ SCH ×2 (07:32→18:00)
[2019-03-29] MEDS: CALCIUM ACETATE 667 MG TAB PO SCH (07:32)
[2019-03-29] MEDS: GABAPENTIN 400 MG CAP PO SCH ×3 (08:25→20:36)
[2019-03-29] MEDS: ALLOPURINOL 100 MG TAB PO SCH (08:25)
[2019-03-29] MEDS: CARBIDOPA-LEVODOPA 25-100 MG 1 EACH TAB PO SCH ×3 (08:25→20:36)
[2019-03-29] MEDS: CLOPIDOGREL 75 MG TAB PO SCH (08:25)
[2019-03-29] MEDS: METOPROLOL TARTRATE 50 MG TAB PO SCH (08:25)
[2019-03-29] MEDS: FAMOTIDINE 20 MG TAB PO SCH (08:25)
--- NOTE | 2019-03-29 08:53 | P.CRDCN ---
History of Present Illness Consult date: 03/29/19 Requesting physician: Eddie Coyne Consult reason: chest pain, congestive heart failure Chief complaint: Chest pain, shortness of breath History of present illness: This is an 78-year-old gentleman with known history of coronary artery disease with prior bypass surgery, aortic valve disease with prior aortic valve replacement, severe underlying peripheral arterial disease, diabetes, hypertension, hyperlipidemia, peripheral tibial disease for which he underwent successful balloon angioplasty of the right SFA and right popliteal and right tibial peroneal trunk in 2014 followed by a right below the knee amputation for critical limb ischemia, for which the patient has undergone arthrectomy of the left popliteal, balloon angioplasty of the left popliteal by Dr. Donald in March of last year, history also of prior CVA, Parkinson's, history of alcohol abuse but he quit approximately 8 years ago. He presents to the hospital on this occasion with symptoms of chest discomfort, he also had stated that he was more short of breath than usual. Patient does have a right below the knee amputation, and he has had significant swelling in his left lower extremity with evidence of what appears to be cellulitis. Blood pressure on arrival here 160/60, heart rate in the 80s, afebrile. Chest x-ray shows congestive heart failure, underlying infiltrate not excluded. EKG shows normal sinus rhythm with first-degree AV block and nonspecific ST-T wave changes. White blood cell count 8.6, hemoglobin 10.5, platelet count 203. Sodium 138, potassium 4.6, BUN 36 creatinine 1.7 on admission, 40 and 1.6 this morning. Troponins 0.04, 0.05, 0.04. BNP level 14,500. At the time of my examination this morning, the patient is sitting up at bedside eating his breakfast, he denies any current chest discomfort, does state that he feels his breathing is improved as compared with yesterday. His weight is down 1 kg today. He is on 40 mg of IV Lasix 3 times a day Past Medical History Past Medical History: CVA/TIA, Diabetes Mellitus, Hyperlipidemia, Hypertension, Musculoskeletal Disorder, Vascular Disorder Additional Past Medical History / Comment(s): CVA-pt states no deficits, TIA-R ocular nerve palsy, R third nerve palsy, parkinson's,. HIGH POTASSIUM 03/07/18- POTASSIUM PILL DISCONTINUED History of Any Multi-Drug Resistant Organisms: None Reported Past Surgical History: Coronary Bypass/CABG, Heart Catheterization, Tonsillectomy Additional Past Surgical History / Comment(s): colonoscopy, bilateral cataract removal, right below knee amputation, valve replacement & triple bypass in [place] 4 yrs. ago,aortogram Past Anesthesia/Blood Transfusion Reactions: No Reported Reaction Additional Past Anesthesia/Blood Transfusion Reaction / Comment(s): no hx blood transfusion Smoking Status: Never smoker - Past Family History Father Family Medical History: Coronary Artery Disease (CAD) Additional Family Medical History / Comment(s): Father had CABG. He at age 93yrs. Mother Family Medical History: Diabetes Mellitus Additional Family Medical History / Comment(s): Mother at age 83 yrs. Medications and Allergies Home Medications Medication Instructions Recorded Confirmed Type Aspirin 325 mg PO DAILY 07/29/15 03/28/19 History Atorvastatin [Lipitor] 80 mg PO HS 07/29/15 03/28/19 History Carbidopa-Levodopa 25-100 mg 1 tab PO TID 07/29/15 03/28/19 History [Sinemet 25-100 mg] Gabapentin 400 mg PO TID 07/29/15 03/28/19 History Insulin NPH Hum/Reg Insulin Hm 50 unit SQ AC-BID 01/31/18 03/28/19 History [NovoLIN 70-30 100 UNIT/ML VIAL] Torsemide [Demadex] 20 mg PO BID 01/31/18 03/28/19 History Famotidine [Pepcid] 20 mg PO DAILY 04/07/18 03/28/19 History Allopurinol [Zyloprim] 100 mg PO DAILY 07/08/18 03/28/19 History Clopidogrel [Plavix] 75 mg PO DAILY 07/08/18 03/28/19 History Ergocalciferol (Vitamin D2) 50,000 unit PO Q30D 07/08/18 03/28/19 History [Vitamin D2] Multivitamin [Men's Multi-Vitamin] 1 tab PO DAILY 07/08/18 03/28/19 History Calcitriol [Rocaltrol] 0.25 mcg PO MO 11/19/18 03/28/19 History Calcium Acetate [PhosLo] 667 mg PO DAILY 11/19/18 03/28/19 History Metoprolol Tartrate [Lopressor] 50 mg PO DAILY 03/28/19 03/28/19 History Allergies Allergy/AdvReac Type Severity Reaction Status Date / Time No Known Allergies Allergy Verified 03/28/19 10:39 Physical Exam Vitals: Vital Signs Temp Pulse Pulse Resp BP BP Pulse Ox 03/29/19 08:00 97.8 F 70 133/59 93 L 03/29/19 04:00 98.0 F 61 17 115/59 96 03/29/19 00:00 98.1 F 80 18 162/57 98 03/28/19 20:23 98 03/28/19 20:00 98.4 F 71 17 125/60 100 03/28/19 16:00 97.8 F 67 16 165/74 99 03/28/19 11:56 16 03/28/19 11:51 69 16 137/56 99 03/28/19 10:45 81 24 115/57 97 03/28/19 09:43 80 03/28/19 09:36 98.4 F 80 24 160/62 99 Intake and Output 03/28/19 03/29/19 03/29/19 22:59 06:59 14:59 Intake Total 242 Output Total 500 450 Balance -258 -450 Intake: Oral 242 Output: Urine 500 450 Other: Voiding Method Urinal Urinal # Voids 1 1 # Bowel Movements 1 Weight 89.8 kg PHYSICAL EXAMINATION: GENERAL: 78-year-old gentleman in no acute distress at the time of my examination HEENT: Head is atraumatic, normocephalic. Pupils equal, round. Sclera anicteric. Conjunctiva are clear. Mucous membranes of the mouth are moist. Neck is supple. There is no elevated jugular venous pressure. No carotid bruit is heard. HEART EXAMINATION: Heart S1 and S2 systolic ejection murmur is heard. CHEST EXAMINATION: Lungs reveal scattered coarse rhonchi throughout, diminished air entry to the bases bilaterally with expiratory wheezing. ABDOMEN: Soft, obese, nontender. Bowel sounds are heard. No organomegaly noted. EXTREMITIES:1+ peripheral pulses to the left lower extremity with evidence of 2+ peripheral edema,chronic venous stasis redness and blistering noted. . Right BKA NEUROLOGIC patient is awake, alert and oriented 3 . Results 03/29/19 06:06 03/29/19 06:06 Cardiac Enzymes 03/28/19 03/28/19 03/28/19 Range/Units 09:50 09:50 15:38 AST 18 (17-59) U/L Troponin I 0.046 H* 0.051 H* (0.000-0.034) ng/mL 03/28/19 Range/Units 21:42 AST (17-59) U/L Troponin I 0.040 H* (0.000-0.034) ng/mL Coagulation 03/28/19 Range/Units 09:50 PT 10.1 (9.0-12.0) sec APTT 25.0 (22.0-30.0) sec CBC 03/28/19 03/29/19 Range/Units 09:50 06:06 WBC 10.0 8.6 (3.8-10.6) k/uL RBC 3.77 L 3.45 L (4.30-5.90) m/uL Hgb 11.2 L 10.5 L (13.0-17.5) gm/dL Hct 35.5 L 33.4 L (39.0-53.0) % Plt Count 226 203 (150-450) k/uL Comprehensive Metabolic Panel 03/28/19 03/29/19 Range/Units 09:50 06:06 Sodium 143 138 (137-145) mmol/L Potassium 4.4 4.6 (3.5-5.1) mmol/L Chloride 106 104 (98-107) mmol/L Carbon Dioxide 25 26 (22-30) mmol/L BUN 36 H 40 H (9-20) mg/dL Creatinine 1.76 H 1.66 H (0.66-1.25) mg/dL Glucose 148 H 231 H (74-99) mg/dL Calcium 9.3 8.6 (8.4-10.2) mg/dL AST 18 (17-59) U/L ALT 23 (21-72) U/L Alkaline Phosphatase 135 H (38-126) U/L Total Protein 7.1 (6.3-8.2) g/dL Albumin 4.0 (3.5-5.0) g/dL Current Medications Generic Name Dose Route Start Last Admin Trade Name Freq PRN Reason Stop Dose Admin Allopurinol 100 mg 03/29/19 09:00 03/29/19 08:25 Zyloprim PO 100 mg DAILY [facility] Administration Aspirin 325 mg 03/29/19 09:00 03/29/19 08:25 Aspirin PO 325 mg DAILY [facility] Administration Atorvastatin Calcium 80 mg 03/28/19 21:00 03/28/19 21:51 Lipitor PO 80 mg HS [facility] Administration Calcitriol 0.25 mcg 03/30/19 09:00 Rocaltrol PO MO [facility] Calcium Acetate 667 mg 03/29/19 07:30 03/29/19 07:32 Phoslo PO 667 mg [id number] [facility] Administration Carbidopa/Levodopa 1 each 03/28/19 22:00 03/29/19 08:25 Sinemet 25-100 PO 1 each TID [facility] Administration Clopidogrel Bisulfate 75 mg 03/29/19 09:00 03/29/19 08:25 Plavix PO 75 mg DAILY [facility] Administration Ergocalciferol 50,000 unit 04/18/19 09:00 Vitamin D2 PO Q30D [facility] Famotidine 20 mg 03/29/19 09:00 03/29/19 08:25 Pepcid PO 20 mg DAILY [facility] Administration Furosemide 40 mg 03/28/19 11:30 03/29/19 05:22 Lasix IV Not Given Q8H [facility] Gabapentin 400 mg 03/28/19 22:00 03/29/19 08:25 Neurontin PO 400 mg TID [facility] Administration Cefazolin Sodium 2 gm/ Sodium 50 mls @ 100 mls/hr 03/28/19 20:00 03/29/19 05:04 Chloride IVPB 100 mls/hr Q8H [facility] Administration Insulin Aspart 50 unit 03/29/19 07:30 03/29/19 07:32 Novolog Mix 70-30 Vial SQ 50 unit AC-BID [facility] Administration Metoprolol Tartrate 50 mg 03/29/19 09:00 03/29/19 08:25 Lopressor PO 50 mg DAILY [facility] Administration Multivitamins 1 each 03/29/19 12:00 Theragran PO DAILY@1200 [facility] Intake and Output 03/28/19 03/29/19 03/29/19 22:59 06:59 14:59 Intake Total 242 Output Total 500 450 Balance -258 -450 Intake: Oral 242 Output: Urine 500 450 Other: Voiding Method Urinal Urinal # Voids 1 1 # Bowel Movements 1 Weight 89.8 kg 03/29/19 06:06 03/29/19 06:06 EKG Interpretations (text) EKG shows a normal sinus rhythm with ST-T wave changes noted in the inferior lateral leads area Assessment and Plan Plan: Assessment and plan #1 systolic congestive heart failure acute on chronic #2 known history of coronary artery disease with prior coronary artery bypass grafting surgery and aortic valve replacement #3 PVD and PAD, patient had undergone angioplasty of the right SFA and right popliteal and right tibial peroneal trunk in 2014 followed by a right below the knee amputation, subsequent to that in March of last year he underwent arthrectomy and balloon angioplasty of the left popliteal #4 hypertension #5 hyperlipidemia #6 diabetes #7 prior CVA #8 Parkinson's #9 acute on chronic renal failure #10 anemia #11 episode of chest discomfort, EKG shows normal sinus rhythm with ST-T wave changes noted in the inferior lateral leads. Mild troponin abnormality, could reflect acute coronary syndrome however we will continue with maximum medical therapy at this time. Plan We will obtain an echocardiogram with Doppler study, patient's most recent echo was performed in November of this year, ejection fraction 35-40% with inferior lateral hypokinesia, bioprosthetic aortic valve with possible stenosis, moderate pulmonary hypertension, the peak/mean gradient across aortic valve was 71.5 09/17 3.83mmHg. Decrease aspirin to 81 mg daily. Continue current dose of IV Lasix. DNP note has been reviewed, I agree with a documented findings and plan of care. Patient was seen and examined.
[2019-03-29] MEDS ORDERED: ASPIRIN 325 MG TAB PO SCH (09:00)
[2019-03-29] MEDS: ASPIRIN 81 MG PO SCH (09:15)
[2019-03-29 11:46] LABS: Glucose,Whole Blood 103 mg/dL (75-99)
[2019-03-29] MEDS: MULTIVITAMINS, THERA 1 EACH TAB PO SCH (12:08)
[2019-03-29 16:47] LABS: Glucose,Whole Blood 150 mg/dL (75-99)
[2019-03-29] MEDS: ATORVASTATIN 80 MG TAB PO SCH (20:36)
[2019-03-29 20:47] LABS: Glucose,Whole Blood 154 mg/dL (75-99)
--- NOTE | 2019-03-29 22:29 | PN ---
PROGRESS NOTE DATE OF SERVICE: 03/29/2019 This 78-year-old gentleman who was admitted with leg cellulitis also had features of some CHF. The patient being closely monitored at this time. Infectious Disease following the patient closely. No chest pain. No palpitations. No fever currently. The patient had some chest pain on admission. EXAM: Alert and oriented x3. The pulse is 56. Blood pressure 101/53, respirations 16, temperature 98.1, pulse ox 98% on 2 L. HEENT: Conjunctivae normal. NECK: No JVD. CARDIOVASCULAR: S1, S2 muffled. RESPIRATION: Breath sounds diminished at the bases. Bilateral scattered rhonchi and crackles. ABDOMEN: Soft, obese, nontender. LEGS: Left leg edema swelling and erythema, tenderness also present. NERVOUS SYSTEM: No focal deficits. LABS: WBC 8.3, hemoglobin 10.5, sodium 138, potassium 4.2, creatinine is 1.66. Accu-Cheks noted. Troponin is noted. ASSESSMENT: 1. Chest pain possible unstable angina. Rule out acute non ST-segment elevation myocardial infarction. Troponin 0.046, present on admission. 2. Left leg swelling and acute cellulitis. 3. Congestive heart failure with acute on chronic systolic dysfunction. 4. Increased creatinine with possibly chronic kidney disease stage III. 5. Diabetes mellitus type 2. 6. History of cerebrovascular accident/transient ischemic attack. 7. Status post right below-knee amputation. 8. Hypertension. 9. Hyperlipidemia. 10.History of peripheral vascular disease. 11.History of Parkinson's. 12.History of coronary artery disease, coronary artery bypass grafting. RECOMMENDATIONS AND DISCUSSION: Recommend to continue current medications, symptomatic treatment. Continue with antibiotics. I would also recommend continue with cautious diuretics. The patient is currently on Lasix 40 mg IV q.8. Otherwise monitor blood sugars closely. Follow closely with multiple consultants including Cardiology and Infectious Disease. Guarded prognosis because of multiple complex medical issues and further recommendations to follow. MMODL / IJN: [id number] /
--- NOTE | 2019-03-29 23:11 | P.CONS ---
History of Present Illness - Reason for Consult Consult date: 03/29/19 - Chief Complaint Shortness of breath - History of Present Illness 78-year-old male who resides in a senior apartment relates that he had the progressive shortness of breath over the last several days and then started to have chest pain that was in his anterior chest area. 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 It was complaining of some pain onto his left leg. Upon arrival was evidence of edema and evidence of cellulitis to the left lower extremity and with this the infectious diseases co nsultation was requested. The patient does not believe it is had a fever feels poorly overall. He has progressive weakness over time. He utilizes his power wheelchair to get out in the public utilizes his standard wheelchair within his senior apartment. Review of Systems HEENT:Denies headache or acute visual change. Denies sinus or mouth discomforts. Denies neck stiffness or pain. Denies significant oral cavity pain. Denies difficulty on swallowing. Lungs: Shortness of breath, minimal cough, no severe sputum production or hemoptysis. Cardiovascular: As noted was having chest pain and chest wall pain admission he has dyspnea with exertion but did not have orthopnea no syncope Gastrointestinal:Denies nausea, vomiting, diarrhea, constipation, hematemesis, melena, hematochezia. No no significant change of bowel habit noticed. Musculoskeletal: denies significant myalgias or arthralgias. Lower extremity edema Skin: Redness tenderness drainage left leg Neuro: Denies headache or visual change. Denies any new onset weakness or difficulty with ambulation. Denies falls or seizures. Psychiatric:Denies anxiety or depression. Endocrine: Chronic fatigue malaise weight is stable Past Medical History Past Medical History: CVA/TIA, Diabetes Mellitus, Hyperlipidemia, Hypertension, Musculoskeletal Disorder, Vascular Disorder Additional Past Medical History / Comment(s): CVA-pt states no deficits, TIA-R ocular nerve palsy, R third nerve palsy, parkinson's,. HIGH POTASSIUM 03/07/18- POTASSIUM PILL DISCONTINUED History of Any Multi-Drug Resistant Organisms: None Reported Past Surgical History: Coronary Bypass/CABG, Heart Catheterization, Tonsillectomy Additional Past Surgical History / Comment(s): colonoscopy, bilateral cataract removal, right below knee amputation, valve replacement & triple bypass in [place] 4 yrs. ago,aortogram Past Anesthesia/Blood Transfusion Reactions: No Reported Reaction Additional Past Anesthesia/Blood Transfusion Reaction / Comm: no hx blood transfusion Additional Psychological History / Comment(s): Single. No tobacco use. Retired concrete mixing plant laborer. No . No travel history. No animal exposures Smoking Status: Never smoker - Past Family History Father Family Medical History: Coronary Artery Disease (CAD) Additional Family Medical History / Comment(s): Father had CABG. He at age 93yrs. Mother Family Medical History: Diabetes Mellitus Additional Family Medical History / Comment(s): Mother at age 83 yrs. Medications and Allergies Home Medications and Allergies Comment(s): Current Medications Allopurinol (Zyloprim) 100 mg PO DAILY [facility] Last Admin: 03/29/19 08:25 Dose: 100 mg Documented by: Aspirin (Aspirin) 81 mg PO DAILY [facility] Last Admin: 03/29/19 09:15 Dose: Not Given Documented by: Atorvastatin Calcium (Lipitor) 80 mg PO HS [facility] Last Admin: 03/29/19 20:36 Dose: 80 mg Documented by: Calcitriol (Rocaltrol) 0.25 mcg PO MO [facility] Calcium Acetate (Phoslo) 667 mg PO AC-BRKFST [facility] Last Admin: 03/29/19 07:32 Dose: 667 mg Documented by: Carbidopa/Levodopa (Sinemet 25-100) 1 each PO TID [facility] Last Admin: 03/29/19 20:36 Dose: 1 each Documented by: Clopidogrel Bisulfate (Plavix) 75 mg PO DAILY [facility] Last Admin: 03/29/19 08:25 Dose: 75 mg Documented by: Ergocalciferol (Vitamin D2) 50,000 unit PO Q30D [facility] Famotidine (Pepcid) 20 mg PO DAILY [facility] Last Admin: 03/29/19 08:25 Dose: 20 mg Documented by: Furosemide (Lasix) 40 mg IV Q8H [facility] Last Admin: 03/29/19 20:36 Dose: 40 mg Documented by: Gabapentin (Neurontin) 400 mg PO TID [facility] Last Admin: 03/29/19 20:36 Dose: 400 mg Documented by: Cefazolin Sodium 1,000 mg/ (Sodium Chloride) 50 mls @ 100 mls/hr IVPB Q8H [facility] Last Admin: 08/11/19 20:36 Dose: 100 mls/hr Documented by: Insulin Aspart (Novolog Mix 70-30 Vial) 50 unit SQ AC-BID [facility] Last Admin: 03/29/19 18:00 Dose: 50 unit Documented by: Metoprolol Tartrate (Lopressor) 50 mg PO DAILY [facility] Last Admin: 03/29/19 08:25 Dose: 50 mg Documented by: Multivitamins (Theragran) 1 each PO DAILY@1200 [facility] Last Admin: 03/29/19 12:08 Dose: 1 each Documented by: Silver Sulfadiazine (Silvadene Cream) 1 applic TOPICAL DAILY [facility] Last Admin: 03/29/19 18:01 Dose: 1 applic Documented by: Home Medications Medication Instructions Recorded Confirmed Type Aspirin 325 mg PO DAILY 07/29/15 03/28/19 History Atorvastatin [Lipitor] 80 mg PO HS 07/29/15 03/28/19 History Carbidopa-Levodopa 25-100 mg 1 tab PO TID 07/29/15 03/28/19 History [Sinemet 25-100 mg] Gabapentin 400 mg PO TID 07/29/15 03/28/19 History Insulin NPH Hum/Reg Insulin Hm 50 unit SQ AC-BID 01/31/18 03/28/19 History [NovoLIN 70-30 100 UNIT/ML VIAL] Torsemide [Demadex] 20 mg PO BID 01/31/18 03/28/19 History Famotidine [Pepcid] 20 mg PO DAILY 04/07/18 03/28/19 History Allopurinol [Zyloprim] 100 mg PO DAILY 07/08/18 03/28/19 History Clopidogrel [Plavix] 75 mg PO DAILY 07/08/18 03/28/19 History Ergocalciferol (Vitamin D2) 50,000 unit PO Q30D 07/08/18 03/28/19 History [Vitamin D2] Multivitamin [Men's Multi-Vitamin] 1 tab PO DAILY 07/08/18 03/28/19 History Calcitriol [Rocaltrol] 0.25 mcg PO MO 11/19/18 03/28/19 History Calcium Acetate [PhosLo] 667 mg PO DAILY 11/19/18 03/28/19 History Metoprolol Tartrate [Lopressor] 50 mg PO DAILY 03/28/19 03/28/19 History Allergies Allergy/AdvReac Type Severity Reaction Status Date / Time No Known Allergies Allergy Verified 03/28/19 10:39 Physical Exam Vitals: Vital Signs Temp Pulse Resp BP Pulse Ox 03/29/19 20:00 97.9 F 60 17 129/57 92 L 03/29/19 15:13 98.1 F 56 L 16 101/53 99 03/29/19 08:00 97.8 F 70 133/59 93 L 03/29/19 04:00 98.0 F 61 17 115/59 96 03/29/19 00:00 98.1 F 80 18 162/57 98 Intake and Output 03/29/19 03/29/19 03/29/19 06:59 14:59 22:59 Intake Total 608 240 Output Total 450 600 Balance -450 8 240 Intake: Oral 608 240 Output: Urine 450 600 Other: Voiding Method Urinal Urinal # Voids 1 0 Weight 89.8 kg 78-year-old male comfortable at this time HEENT: Anicteric conjunctiva are pink and moist nasal mucosa grossly intact without significant lesions, there is no thrush. Edentulous with poor hearing Neck: The neck is supple without significant lymphadenopathy or thyromegaly. Lungs: Symmetrical air entry is noted today basilar crackles are heard no dullness or egophony Heart: Irregular with a soft S4 no audible murmur click or rub Abdomen: Obese, Positive bowel sounds soft and nontender without palpable masses or organomegaly. There was no guarding or rebound. Extremities: The upper extremities have excellent pulses they are symmetric, no significant petechiae or telangiectasia. No splinter hemorrhages were noted. Right lower extremity shows evidence of the [id number] amputation, residual limb site is intact without open lesions. Left lower fluctuations of the extensive edema erythema and skin ulcerations that are somewhat scattered distally with some bruising through the ulcerations. It is tender the erythema however does not track above the knee. If he does not have extensive left inguinal lymphadenopathy. No other abnormal lymph nodes were noted. Neuro: Awake alert oriented to person place and time. There are no acute new gross focal sensory motor deficits. Results CBC & Chem 7: 03/29/19 06:06 03/29/19 06:06 Labs: Abnormal Lab Results - Last 24 Hours (Table) 03/29/19 03/29/19 03/29/19 Range/Units 06:05 06:06 06:06 RBC 3.45 L (4.30-5.90) m/uL Hgb 10.5 L (13.0-17.5) gm/dL Hct 33.4 L (39.0-53.0) % RDW 15.7 H (11.5-15.5) % BUN 40 H (9-20) mg/dL Creatinine 1.66 H (0.66-1.25) mg/dL Glucose 231 H (74-99) mg/dL POC Glucose (mg/dL) 220 H (75-99) mg/dL 03/29/19 03/29/19 03/29/19 Range/Units 11:45 16:45 20:46 RBC (4.30-5.90) m/uL Hgb (13.0-17.5) gm/dL Hct (39.0-53.0) % RDW (11.5-15.5) % BUN (9-20) mg/dL Creatinine (0.66-1.25) mg/dL Glucose (74-99) mg/dL POC Glucose (mg/dL) 103 H 150 H 154 H (75-99) mg/dL Microbiology - Last 24 Hours (Table) 03/28/19 19:55 Blood Culture - Preliminary Blood No Growth after 24 hours Laboratory Results WBC 8.6 k/uL (3.8-10.6) 03/29/19 06:06 RBC 3.45 m/uL (4.30-5.90) L 03/29/19 06:06 Hgb 10.5 gm/dL (13.0-17.5) L 03/29/19 06:06 Hct 33.4 % (39.0-53.0) L 03/29/19 06:06 MCV 97.0 fL (80.0-100.0) 03/29/19 06:06 MCH 30.6 pg (25.0-35.0) 03/29/19 06:06 MCHC 31.5 g/dL (31.0-37.0) 03/29/19 06:06 RDW 15.7 % (11.5-15.5) H 03/29/19 06:06 Plt Count 203 k/uL (150-450) 03/29/19 06:06 Neutrophils % 70 % 03/29/19 06:06 Lymphocytes % 18 % 03/29/19 06:06 Monocytes % 6 % 03/29/19 06:06 Eosinophils % 3 % 03/29/19 06:06 Basophils % 0 % 03/29/19 06:06 Neutrophils # 6.0 k/uL (1.3-7.7) 03/29/19 06:06 Lymphocytes # 1.6 k/uL (1.0-4.8) 03/29/19 06:06 Monocytes # 0.5 k/uL (0-1.0) 03/29/19 06:06 Eosinophils # 0.2 k/uL (0-0.7) 03/29/19 06:06 Basophils # 0.0 k/uL (0-0.2) 03/29/19 06:06 Hypochromasia Slight 03/29/19 06:06 Anisocytosis Slight 03/28/19 09:50 PT 10.1 sec (9.0-12.0) 03/28/19 09:50 INR 0.9 (<1.2) 03/28/19 09:50 APTT 25.0 sec (22.0-30.0) 03/28/19 09:50 Sodium 138 mmol/L (137-145) 03/29/19 06:06 Potassium 4.6 mmol/L (3.5-5.1) 03/29/19 06:06 Chloride 104 mmol/L (98-107) 03/29/19 06:06 Carbon Dioxide 26 mmol/L (22-30) 03/29/19 06:06 Anion Gap 8 mmol/L 03/29/19 06:06 BUN 40 mg/dL (9-20) H 03/29/19 06:06 Creatinine 1.66 mg/dL (0.66-1.25) H 03/29/19 06:06 Est GFR (CKD-EPI)AfAm 44 (>60 ml/min/1.73 sqM) 03/29/19 06:06 Est GFR (CKD-EPI)NonAf 38 (>60 ml/min/1.73 sqM) 03/29/19 06:06 Glucose 231 mg/dL (74-99) H 03/29/19 06:06 POC Glucose (mg/dL) 154 mg/dL (75-99) H 03/29/19 20:46 POC Glu Caption Writer ID Tyra Aguilar 03/29/19 20:46 Calcium 8.6 mg/dL (8.4-10.2) 03/29/19 06:06 Magnesium 2.3 mg/dL (1.6-2.3) 03/28/19 09:50 Total Bilirubin 0.7 mg/dL (0.2-1.3) 03/28/19 09:50 AST 18 U/L (17-59) 03/28/19 09:50 ALT 23 U/L (21-72) 03/28/19 09:50 Alkaline Phosphatase 135 U/L (38-126) H 03/28/19 09:50 Creatine Kinase 86 U/L (55-170) 03/28/19 09:50 Troponin I 0.040 ng/mL (0.000-0.034) H* 03/28/19 21:42 NT-Pro-B Natriuret Pep 23066 pg/mL 03/28/19 09:50 Total Protein 7.1 g/dL (6.3-8.2) 03/28/19 09:50 Albumin 4.0 g/dL (3.5-5.0) 03/28/19 09:50 Lipase 174 U/L (23-300) 03/28/19 09:50 Microbiology 03/28/19 19:55 Blood Blood Culture - Preliminary No Growth after 24 hours Comments: Chest x-ray reveals evidence of congestive heart failure Assessment and Plan (1) Acute exacerbation of CHF (congestive heart failure) Current Visit: Yes Status: Acute Code(s): I50.9 - HEART FAILURE, UNSPECIFIED SNOMED Code(s): 272624011 (2) Chest pain Current Visit: Yes Status: Acute Code(s): R07.9 - CHEST PAIN, UNSPECIFIED SNOMED Code(s): 52137319 (3) Cellulitis of left leg Narrative/Plan: 78-year-old male presents to Hospital increasing shortness of breath and pain and swelling redness and drainage of his left leg. Patient has a prior history of the right [id number] amputation and is somewhat concerned. This time is evidence of the extensive cellulitis on the left leg and antibiotic therapy with Ancef has been started. Local wound care with Silvadene as well as a rapid been requested. Elevation of the limb at rest. Treatment of his heart failure will help the extensive edema which will allow the antibiotic therapy to be effective. If arterial Dopplers are available to the left limb, should be considered so long-term compressive therapy can be arranged. Current Visit: Yes Status: Acute Code(s): L03.116 - CELLULITIS OF LEFT LOWER LIMB SNOMED Code(s): 642722940
[2019-03-30] MEDS: FUROSEMIDE 10 MG/ML 4 ML VIAL IV SCH ×3 (03:40→20:22)
[2019-03-30 06:04] LABS: Glucose,Whole Blood 93 mg/dL (75-99)
[2019-03-30 06:27] LABS: Basophils % (A) 0 %; Eosinophils # (A) 0.2 k/uL (0-0.7); Eosinophils % (A) 3 %; HGB 10.7 gm/dL (13.0-17.5); Hypochromasia Moderate; Lymphocytes # (A) 1.9 k/uL (1.0-4.8); Lymphocytes % (A) 21 %; MCH 29.7 pg (25.0-35.0); MCHC 30.7 g/dL (31.0-37.0); MCV 96.7 fL (80.0-100.0); Mean Platelet Volume 8.9; Monocytes # (A) 0.5 k/uL (0-1.0); Monocytes % (A) 6 %; Neutrophils # (A) 6.4 k/uL (1.3-7.7); Neutrophils % (A) 68 %; Platelet Count 196 k/uL (150-450); RBC 3.62 m/uL (4.30-5.90); RDW 15.1 % (11.5-15.5); WBC 9.3 k/uL (3.8-10.6)
[2019-03-30 06:36] LABS: Calcium 8.7 mg/dL (8.4-10.2); Potassium 4.7 mmol/L (3.5-5.1)
[2019-03-30 07:54] LABS: Glucose,Whole Blood 86 mg/dL (75-99)
[2019-03-30] MEDS: CLOPIDOGREL 75 MG TAB PO SCH (08:18)
[2019-03-30] MEDS: ALLOPURINOL 100 MG TAB PO SCH (08:18)
[2019-03-30] MEDS: ASPIRIN 81 MG PO SCH (08:18)
[2019-03-30] MEDS: METOPROLOL TARTRATE 50 MG TAB PO SCH (08:18)
[2019-03-30] MEDS: GABAPENTIN 400 MG CAP PO SCH ×3 (08:18→22:09)
[2019-03-30] MEDS: FAMOTIDINE 20 MG TAB PO SCH (08:18)
[2019-03-30] MEDS: MULTIVITAMINS, THERA 1 EACH TAB PO SCH (08:18)
[2019-03-30] MEDS: CARBIDOPA-LEVODOPA 25-100 MG 1 EACH TAB PO SCH ×3 (08:18→22:09)
[2019-03-30] MEDS: CALCIUM ACETATE 667 MG TAB PO SCH (08:19)
[2019-03-30] MEDS ORDERED: CALCITRIOL 0.25 MCG CAP PO SCH (09:00)
[2019-03-30] MEDS: INSULN ASP PRT/INSULIN ASPART 100 UNIT/ML 10 ML VIAL SQ SCH ×2 (09:54→17:24)
--- NOTE | 2019-03-30 12:16 | P.PN ---
Subjective Progress Note Date: 03/30/19 This is an 78-year-old gentleman with known history of coronary artery disease with prior bypass surgery, aortic valve disease with prior aortic valve replacement, severe underlying peripheral arterial disease, diabetes, hypertension, hyperlipidemia, peripheral tibial disease for which he underwent successful balloon angioplasty of the right SFA and right popliteal and right tibial peroneal trunk in 2014 followed by a right below the knee amputation for critical limb ischemia, for which the patient has undergone arthrectomy of the left popliteal, balloon angioplasty of the left popliteal by Dr. Donald in March of last year, history also of prior CVA, Parkinson's, history of alcohol abuse but he quit approximately 8 years ago. He presents to the hospital on this occasion with symptoms of chest discomfort, he also had stated that he was more short of breath than usual. Patient does have a right below the knee amputation, and he has had significant swelling in his left lower extremity with evidence of what appears to be cellulitis. Blood pressure on arrival here 160/60, heart rate in the 80s, afebrile. Chest x-ray shows congestive heart failure, underlying infiltrate not excluded. EKG shows normal sinus rhythm with first-degree AV block and nonspecific ST-T wave changes. White blood cell count 8.6, hemoglobin 10.5, platelet count 203. Sodium 138, potassium 4.6, BUN 36 c reatinine 1.7 on admission, 40 and 1.6 this morning. Troponins 0.04, 0.05, 0.04. BNP level 14,500. At the time of my examination this morning, the patient is sitting up at bedside eating his breakfast, he denies any current chest discomfort, does state that he feels his breathing is improved as compared with yesterday. His weight is down 1 kg today. He is on 40 mg of IV Lasix 3 times a day. 03/30/2019 Patient was seen and examined this morning sitting up in the chair at bedside. Overall diuresing well, creatinine today is 2.1 up from 1.6 yesterday repeat echocardiogram with Doppler study is yet pending. Blood pressure 122/60 with a heart rate is 60, 97% on room air. Objective - Vital Signs Vital signs: Vital Signs Temp 97.7 F 03/30/19 08:00 Pulse 60 03/30/19 08:00 Resp 18 03/30/19 08:00 BP 123/56 03/30/19 08:00 Pulse Ox 97 03/30/19 08:00 Intake & Output 03/29/19 03/30/19 03/30/19 18:59 06:59 18:59 Intake Total 848 240 Output Total 600 300 700 Balance 248 -300 -460 Weight 91.7 kg Intake: Oral 848 240 Output: Urine 600 300 700 Other: Voiding Method Urinal Urinal # Voids 0 1 - Exam PHYSICAL EXAMINATION: GENERAL: 78-year-old gentleman in no acute distress at the time of my examination HEENT: Head is atraumatic, normocephalic. Pupils equal, round. Sclera anicteric. Conjunctiva are clear. Mucous membranes of the mouth are moist. Neck is supple. There is no elevated jugular venous pressure. No carotid bruit is heard. HEART EXAMINATION: Heart S1 and S2 systolic ejection murmur is heard. CHEST EXAMINATION: Lungs reveal scattered coarse rhonchi throughout, diminished air entry to the bases bilaterally with expiratory wheezing. ABDOMEN: Soft, obese, nontender. Bowel sounds are heard. No organomegaly noted. EXTREMITIES:1+ peripheral pulses to the left lower extremity with evidence of 2+ peripheral edema,chronic venous stasis redness and blistering noted. . Right B KA NEUROLOGIC patient is awake, alert and oriented 3 . - Labs CBC & Chem 7: 03/30/19 05:59 03/30/19 05:59 Labs: Abnormal Lab Results - Last 24 Hours (Table) 03/29/19 03/29/19 03/30/19 Range/Units 16:45 20:46 05:59 RBC 3.62 L (4.30-5.90) m/uL Hgb 10.7 L (13.0-17.5) gm/dL Hct 35.0 L (39.0-53.0) % MCHC 30.7 L (31.0-37.0) g/dL Carbon Dioxide (22-30) mmol/L BUN (9-20) mg/dL Creatinine (0.66-1.25) mg/dL POC Glucose (mg/dL) 150 H 154 H (75-99) mg/dL 03/30/19 Range/Units 05:59 RBC (4.30-5.90) m/uL Hgb (13.0-17.5) gm/dL Hct (39.0-53.0) % MCHC (31.0-37.0) g/dL Carbon Dioxide 31 H (22-30) mmol/L BUN 48 H (9-20) mg/dL Creatinine 2.14 H (0.66-1.25) mg/dL POC Glucose (mg/dL) (75-99) mg/dL Microbiology - Last 24 Hours (Table) 03/29/19 18:10 Gram Stain - Preliminary Leg - Left Wound Culture - Preliminary 03/28/19 19:55 Blood Culture - Preliminary Blood No Growth after 24 hours Assessment and Plan Plan: Assessment and plan #1 systolic congestive heart failure acute on chronic #2 known history of coronary artery disease with prior coronary artery bypass grafting surgery and aortic valve replacement #3 PVD and PAD, patient had undergone angioplasty of the right SFA and right popliteal and right tibial peroneal trunk in 2014 followed by a right below the knee amputation, subsequent to that in March of last year he underwent arthrectomy and balloon angioplasty of the left popliteal #4 hypertension #5 hyperlipidemia #6 diabetes #7 prior CVA #8 Parkinson's #9 acute on chronic renal failure #10 anemia #11 episode of chest discomfort, EKG shows normal sinus rhythm with ST-T wave changes noted in the inferior lateral leads. Mild troponin abnormality, could reflect acute coronary syndrome however we will continue with maximum medical therapy at this time. Plan We will review the patient's echocardiogram with Doppler study. Continue current dose of IV Lasix for 24 hours. DNP note has been reviewed, I agree with a documented findings and plan of care. Patient was seen and examined.
[2019-03-30 12:23] LABS: Glucose,Whole Blood 246 mg/dL (75-99)
[2019-03-30] MEDS ORDERED: INSULIN DETEMIR (LEVEMIR) 100 UNIT/ML SYR SQ ONE (13:16)
[2019-03-30 15:34] LABS: Glucose,Whole Blood 312 mg/dL (75-99)
[2019-03-30] MEDS: SILVER sulfADIAZINE Cream 400 GM 1 APPLIC APPLIC TOPICAL SCH (15:46)
[2019-03-30 17:15] LABS: Glucose,Whole Blood 340 mg/dL (75-99)
[2019-03-30 17:16] LABS: Hemoglobin A1C 10.6 % (4.0-6.0)
[2019-03-30] MEDS: ATORVASTATIN 80 MG TAB PO SCH (20:22)
[2019-03-30 21:23] LABS: Glucose,Whole Blood 177 mg/dL (75-99)
--- NOTE | 2019-03-31 00:36 | P.PN ---
Subjective Progress Note Date: 03/30/19 Principal diagnosis: This is an 78 year old male that was admitted with left leg cellulitis and features of chronic heart failure and is being closely monitored. Patient is currently sitting up in the bedside chair in no acute distress. Discussed with the patient at length about the use of insulin at home and patient states that he normally checks his blood sugar twice a day. Patients blood sugars have varied during this hospitalization. Will continue to monitor and adjust acc ordingly. Patient denies any chest pain at this time. Patient denies any shortness of breath or palpitations. Patient is currently afebrile. Patient has the left leg down and not elevated during visit today. Guarded prognosis. Objective - Vital Signs Vital signs: Vital Signs Temp 97.7 F 03/30/19 15:51 Pulse 55 L 03/30/19 16:00 Resp 18 03/30/19 16:00 BP 114/56 03/30/19 15:51 Pulse Ox 97 03/30/19 15:51 Intake & Output 03/29/19 03/30/19 03/30/19 18:59 06:59 18:59 Intake Total 848 380 Output Total 600 300 700 Balance 248 -300 -320 Weight 91.7 kg Intake: IV 20 Invasive Line 1 20 Oral 848 360 Output: Urine 600 300 700 Other: Voiding Method Urinal Urinal # Voids 0 1 - Exam PHYSICAL EXAMINATION: GENERAL: The patient is alert and oriented x3, not in any acute distress. Obese. Vital signs are stable. Blood pressure is 114/56, pulse is 55, respirations are 18, temp is 97.7F, oxygen saturation is 97% on room air HEENT: Pupils are round and equally reacting to light. EOMI. No scleral icterus. No conjunctival pallor. Normocephalic, atraumatic. No pharyngeal erythema. No thyromegaly. CARDIOVASCULAR: S1 and S2 present. No murmurs, rubs, or gallops. PULMONARY: Diminished lung sounds in the bases, bilateral rhonchi and crackles noted. ABDOMEN: Soft, non-tender, obese, normoactive bowel sounds. No palpable organomegaly. MUSCULOSKELETAL: No joint swelling or deformity. EXTREMITIES: No cyanosis or clubbing noted. Left leg is edematous and swollen with erythema noted. right BKA. NEUROLOGICAL: Gross neurological examination did not reveal any focal deficits. SKIN: Cellulitis of the upper left arm - Labs CBC & Chem 7: 03/30/19 05:59 03/30/19 05:59 Labs: Abnormal Lab Results - Last 24 Hours (Table) 03/29/19 03/29/19 03/30/19 Range/Units 16:45 20:46 05:59 RBC 3.62 L (4.30-5.90) m/uL Hgb 10.7 L (13.0-17.5) gm/dL Hct 35.0 L (39.0-53.0) % MCHC 30.7 L (31.0-37.0) g/dL Carbon Dioxide (22-30) mmol/L BUN (9-20) mg/dL Creatinine (0.66-1.25) mg/dL POC Glucose (mg/dL) 150 H 154 H (75-99) mg/dL 03/30/19 03/30/19 03/30/19 Range/Units 05:59 12:00 15:32 RBC (4.30-5.90) m/uL Hgb (13.0-17.5) gm/dL Hct (39.0-53.0) % MCHC (31.0-37.0) g/dL Carbon Dioxide 31 H (22-30) mmol/L BUN 48 H (9-20) mg/dL Creatinine 2.14 H (0.66-1.25) mg/dL POC Glucose (mg/dL) 246 H 312 H (75-99) mg/dL Microbiology - Last 24 Hours (Table) 03/29/19 18:10 Gram Stain - Preliminary Leg - Left Wound Culture - Preliminary 03/28/19 19:55 Blood Culture - Preliminary Blood No Growth after 24 hours Assessment and Plan Assessment: Chest pain possible unstable angina. Rule out acute non-ST segment elevation myocardial infarction. Troponin 0.046, present on admission Left leg swelling and acute cellulitis; On IV antibiotics. Infectious disease is following. Congestive heart failure with acute on chronic systolic dysfunction Increased creatinine with possible chronic kidney disease stage III Diabetes mellitus type 2 History of cerebrovascular accident/TIA Status post right below the knee amputation Hypertension Hyperlipidemia History of peripheral vascular disease history of Parkinson's History of coronary artery disease, coronary artery bypass grafting Recommendations and discussion: Recommend to continue current medications, management, and symptomatic treatment. Infectious disease and cardiology are following closely. We will continue to monitor closely. Patient is currently still on IV lasix and labs will be closely monitored. Guarded prognosis. Further recommendations to follow.
[2019-03-31] MEDS: FUROSEMIDE 10 MG/ML 4 ML VIAL IV SCH ×2 (04:30→10:28)
[2019-03-31 06:28] LABS: Basophils % (A) 0 %; Eosinophils # (A) 0.3 k/uL (0-0.7); Eosinophils % (A) 2 %; HCT 34.9 % (39.0-53.0); HGB 10.9 gm/dL (13.0-17.5); Hypochromasia Moderate; Lymphocytes # (A) 1.9 k/uL (1.0-4.8); Lymphocytes % (A) 15 %; MCH 30.2 pg (25.0-35.0); MCHC 31.1 g/dL (31.0-37.0); Mean Platelet Volume 9.5; Monocytes # (A) 0.8 k/uL (0-1.0); Monocytes % (A) 6 %; Neutrophils # (A) 9.8 k/uL (1.3-7.7); Neutrophils % (A) 75 %; Platelet Count 224 k/uL (150-450); WBC 13.1 k/uL (3.8-10.6)
[2019-03-31 06:37] LABS: Glucose,Whole Blood 66 mg/dL (75-99)
[2019-03-31 06:37] LABS: Calcium 8.8 mg/dL (8.4-10.2); Potassium 4.1 mmol/L (3.5-5.1)
[2019-03-31 06:46] LABS: Glucose,Whole Blood 65 mg/dL (75-99)
[2019-03-31] MEDS: INSULN ASP PRT/INSULIN ASPART 100 UNIT/ML 10 ML VIAL SQ SCH ×3 (07:09→17:09)
[2019-03-31] MEDS: CALCIUM ACETATE 667 MG TAB PO SCH (07:11)
[2019-03-31 07:19] LABS: Glucose,Whole Blood 108 mg/dL (75-99)
--- NOTE | 2019-03-31 08:40 | ECHOF ---
Referral Reason:chf MEASUREMENTS -------- HEIGHT: 165.1 cm WEIGHT: 91.6 kg BP: 131/65 RVIDd: 3.4 cm (< 3.3) IVSd: 1.2 cm (0.6 - 1.1) LVIDd: 5.7 cm (3.9 - 5.3) LVPWd: 1.0 cm (0.6 - 1.1) IVSs: 1.5 cm LVIDs: 4.8 cm LVPWs: 1.5 cm LA Diam: 4.6 cm (2.7 - 3.8) LAESV Index (A-L): 42.01 ml/m Ao Diam: 3.0 cm (2.0 - 3.7) MV EXCURSION: 19.523 mm (> 18.000) MV EF SLOPE: 43 mm/s (70 - 150) EPSS: 2.2 cm MV E Enrique: 1.07 m/s MV DecT: 213 ms MV A Enrique: 0.87 m/s MV E/A Ratio: 1.24 AV maxP.10 mmHg AV meanP.14 mmHg RAP: 5.00 mmHg RVSP: 38.02 mmHg FINDINGS -------- Undetermined rhythm. This was a techncally difficult study with suboptimal views, , Lumason utilized for enhancement of im ages. The left ventricular size is normal. There is borderline concentric left ventricular hypertrophy. Overall left ventricular systolic function is moderate-severely impaired with, an EF between 30 - 35 %. The LV end diastolic pressure is elevated 41.19. Inferior Hypokinesis The right ventricle is normal in size. The left atrium is markedly dilated. LA is severely dilated >40 ml/m2 The right atrial size is normal. 5.0mg OF Lumason UTLIZED: 2 OR MORE WALL SEGMENTS NOT VISUALIZED. Peak/mean gradient across the Aortic Valve is 64.10mmHg / 28.14mmHg. There is mild regurgitation of the bioprosthetic aortic valve. There is moderate stenosis of the bioprosthetic aortic valve. Mild mitral annular calcification present. Mild mitral regurgitation is present. Mild tricuspid regurgitation present. There is mild pulmonary hypertension. The right ventricular systolic pressure, as measured by Doppler, is 38.02mmHg. There is no pulmonic regurgitation present. There is no pericardial effusion. CONCLUSIONS -------- 1. This was a techncally difficult study with suboptimal views, , Lumason utilized for enhancement of images. 2. The left ventricular size is normal. 3. There is borderline concentric left ventricular hypertrophy. 4. Overall left ventricular systolic function is moderate-severely impaired with, an EF between 30 - 35 %. 5. Inferior Hypokinesis 6. The right ventricle is normal in size. 7. The left atrium is markedly dilated. 8. LA is severely dilated >40 ml/m2 9. The right atrial size is normal. 10. 5.0mg OF Lumason UTLIZED: 2 OR MORE WALL SEGMENTS NOT VISUALIZED. 11. Peak/mean gradient across the Aortic Valve is 64.10mmHg / 28.14mmHg. 12. There is mild regurgitation of the bioprosthetic aortic valve. 13. There is moderate stenosis of the bioprosthetic aortic valve. 14. Mild mitral annular calcification present. 15. Mild mitral regurgitation is present. 16. Mild tricuspid regurgitation present. 17. There is mild pulmonary hypertension. 18. The right ventricular systolic pressure, as measured by Doppler, is 38.02mmHg. 19. There is no pulmonic regurgitation present. 20. There is no pericardial effusion. RADIOLOGICAL ENGINEER: Anusha Bonner RDCS
[2019-03-31 10:25] LABS: Glucose,Whole Blood 236 mg/dL (75-99)
[2019-03-31] MEDS: CARBIDOPA-LEVODOPA 25-100 MG 1 EACH TAB PO SCH ×3 (10:25→21:17)
[2019-03-31] MEDS: CLOPIDOGREL 75 MG TAB PO SCH (10:25)
[2019-03-31] MEDS: FAMOTIDINE 20 MG TAB PO SCH (10:25)
[2019-03-31] MEDS: METOPROLOL TARTRATE 50 MG TAB PO SCH (10:25)
[2019-03-31] MEDS: GABAPENTIN 400 MG CAP PO SCH ×3 (10:25→21:17)
[2019-03-31] MEDS: MULTIVITAMINS, THERA 1 EACH TAB PO SCH (10:25)
[2019-03-31] MEDS: ASPIRIN 81 MG PO SCH (10:25)
[2019-03-31] MEDS: ALLOPURINOL 100 MG TAB PO SCH (10:25)
--- NOTE | 2019-03-31 12:03 | P.PN ---
Subjective Progress Note Date: 03/31/19 This is an 78-year-old gentleman with known history of coronary artery disease with prior bypass surgery, aortic valve disease with prior aortic valve replacement, severe underlying peripheral arterial disease, diabetes, hypertension, hyperlipidemia, peripheral tibial disease for which he underwent successful balloon angioplasty of the right SFA and right popliteal and right tibial peroneal trunk in 2014 followed by a right below the knee amputation for critical limb ischemia, for which the patient has undergone arthrectomy of the left popliteal, balloon angioplasty of the left popliteal by Dr. Donald in March of last year, history also of prior CVA, Parkinson's, history of alcohol abuse but he quit approximately 8 years ago. He presents to the hospital on this occasion with symptoms of chest discomfort, he also had stated that he was more short of breath than usual. Patient does have a right below the knee amputation, and he has had significant swelling in his left lower extremity with evidence of what appears to be cellulitis. Blood pressure on arrival here 160/60, heart rate in the 80s, afebrile. Chest x-ray shows congestive heart failure, underlying infiltrate not excluded. EKG shows normal sinus rhythm with first-degree AV block and nonspecific ST-T wave changes. White blood cell count 8.6, hemoglobin 10.5, platelet count 203. Sodium 138, potassium 4.6, BUN 36 c reatinine 1.7 on admission, 40 and 1.6 this morning. Troponins 0.04, 0.05, 0.04. BNP level 14,500. At the time of my examination this morning, the patient is sitting up at bedside eating his breakfast, he denies any current chest discomfort, does state that he feels his breathing is improved as compared with yesterday. His weight is down 1 kg today. He is on 40 mg of IV Lasix 3 times a day. 03/30/2019 Patient was seen and examined this morning sitting up in the chair at bedside. Overall diuresing well, creatinine today is 2.1 up from 1.6 yesterday repeat echocardiogram with Doppler study is yet pending. Blood pressure 122/60 with a heart rate is 60, 97% on room air. 03/31/2019 Patient was examined this morning, sitting up in the chair bedside. His daughter is present this morning. He is feeling much better overall. His weight is down 4 kg today. White blood cell count 13.1, hemoglobin 10.9, platelet count 224. Sodium 144, potassium 4.1, BUN 51 and creatinine 2.3. IV Lasix will be discontinued and from tomorrow we will initiate by mouth Lasix at 60 mg twice a day. Check lytes BUN and creatinine in the morning. Objective - Vital Signs Vital signs: Vital Signs Temp 97.8 F 03/31/19 04:23 Pulse 71 03/31/19 04:23 Resp 15 03/31/19 04:23 BP 131/63 03/31/19 04:23 Pulse Ox 94 L 03/31/19 04:23 Intake & Output 03/30/19 03/31/19 03/31/19 18:59 06:59 18:59 Intake Total 880 50 240 Output Total 1300 1775 Balance -420 -1725 240 Weight 87.9 kg Intake: IV 20 Invasive Line 1 20 Intake, IV Titration 50 Amount ceFAZolin 1,000 mg In 50 Sodium Chloride 0.9% 50 ml @ 100 mls/hr IVPB Q8H [facility] Rx#:[id number] Oral 860 240 Output: Urine 1300 1775 Other: Voiding Method Urinal Urinal # Voids 2 - Exam PHYSICAL EXAMINATION: GENERAL: 78-year-old gentleman in no acute distress at the time of my examination HEENT: Head is atraumatic, normocephalic. Pupils equal, round. Sclera anicteric. Conjunctiva are clear. Mucous membranes of the mouth are moist. Neck is supple. There is no elevated jugular venous pressure. No carotid bruit is heard. HEART EXAMINATION: Heart S1 and S2 systolic ejection murmur is heard. CHEST EXAMINATION: Lungs reveal scattered coarse rhonchi throughout, diminished air entry to the bases bilaterally with expiratory wheezing. ABDOMEN: Soft, obese, nontender. Bowel sounds are heard. No organomegaly noted. EXTREMITIES:1+ peripheral pulses to the left lower extremity with evidence of trace to1+ peripheral edema,chronic venous stasis redness and blistering noted. . Right BKA NEUROLOGIC patient is awake, alert and oriented 3 . - Labs CBC & Chem 7: 03/31/19 06:07 03/31/19 06:07 Labs: Abnormal Lab Results - Last 24 Hours (Table) 03/30/19 03/30/19 03/30/19 Range/Units 05:59 12:00 15:32 WBC (3.8-10.6) k/uL RBC (4.30-5.90) m/uL Hgb (13.0-17.5) gm/dL Hct (39.0-53.0) % Neutrophils # (1.3-7.7) k/uL BUN (9-20) mg/dL Creatinine (0.66-1.25) mg/dL Glucose (74-99) mg/dL POC Glucose (mg/dL) 246 H 312 H (75-99) mg/dL Hemoglobin A1c 10.6 H (4.0-6.0) % 03/30/19 03/30/19 03/31/19 Range/Units 16:52 21:21 06:07 WBC 13.1 H (3.8-10.6) k/uL RBC 3.60 L (4.30-5.90) m/uL Hgb 10.9 L (13.0-17.5) gm/dL Hct 34.9 L (39.0-53.0) % Neutrophils # 9.8 H (1.3-7.7) k/uL BUN (9-20) mg/dL Creatinine (0.66-1.25) mg/dL Glucose (74-99) mg/dL POC Glucose (mg/dL) 340 H 177 H (75-99) mg/dL Hemoglobin A1c (4.0-6.0) % 03/31/19 03/31/19 03/31/19 Range/Units 06:07 06:28 06:45 WBC (3.8-10.6) k/uL RBC (4.30-5.90) m/uL Hgb (13.0-17.5) gm/dL Hct (39.0-53.0) % Neutrophils # (1.3-7.7) k/uL BUN 51 H (9-20) mg/dL Creatinine 2.30 H (0.66-1.25) mg/dL Glucose 65 L (74-99) mg/dL POC Glucose (mg/dL) 66 L 65 L (75-99) mg/dL Hemoglobin A1c (4.0-6.0) % 03/31/19 03/31/19 Range/Units 07:11 10:24 WBC (3.8-10.6) k/uL RBC (4.30-5.90) m/uL Hgb (13.0-17.5) gm/dL Hct (39.0-53.0) % Neutrophils # (1.3-7.7) k/uL BUN (9-20) mg/dL Creatinine (0.66-1.25) mg/dL Glucose (74-99) mg/dL POC Glucose (mg/dL) 108 H 236 H (75-99) mg/dL Hemoglobin A1c (4.0-6.0) % Microbiology - Last 24 Hours (Table) 03/28/19 19:55 Blood Culture - Preliminary Blood No Growth after 48 hours 03/29/19 18:10 Gram Stain - Preliminary Leg - Left Wound Culture - Preliminary Gram Neg Bacilli Assessment and Plan Plan: Assessment and plan #1 systolic congestive heart failure acute on chronic #2 known history of coronary artery disease with prior coronary artery bypass grafting surgery and aortic valve replacement #3 PVD and PAD, patient had undergone angioplasty of the right SFA and right popliteal and right tibial peroneal trunk in 2014 followed by a right below the knee amputation, subsequent to that in March of last year he underwent arthrectomy and balloon angioplasty of the left popliteal #4 hypertension #5 hyperlipidemia #6 diabetes #7 prior CVA #8 Parkinson's #9 acute on chronic renal failure #10 anemia #11 episode of chest discomfort, EKG shows normal sinus rhythm with ST-T wave changes noted in the inferior lateral leads. Mild troponin abnormality, could reflect acute coronary syndrome however we will continue with maximum medical therapy at this time. Plan Echocardiogram with Doppler study revealed an ejection fraction of 30-35%, moderate stenosis of the bioprosthetic aortic valve. We will discontinue the IV Lasix today, start the patient on Lasix 60 mg by mouth twice a day from tomorrow. Check lytes BUN and creatinine in the morning. DNP note has been reviewed, I agree with a documented findings and plan of care. Patient was seen and examined.
[2019-03-31 12:25] LABS: Glucose,Whole Blood 228 mg/dL (75-99)
[2019-03-31 12:50] VITALS: RESP 16
--- NOTE | 2019-03-31 15:56 | CDI ---
Documentation Clarification Form Date: 03/31/2019 3:27:00 PM From: Divya Hewitt RN, CCDS Admit Date: 03/30/2019 8:10:00 AM Patient Name: Hreson Ortiz Visit Number: [id number] Discharge Date: ATTENTION: The Clinical Documentation Specialists (CDI) and [facility] Coding Staff appreciate your assistance in clarifying documentation. Please respond to the clarification below the line at the bottom and electronically sign. The CDI & [facility] Coding staff will review the response and follow-up if needed. Please note: Queries are made part of the Legal Health Record. If you have any questions, please contact the author of this message via ITS. Dr. Eddie Coyne The patient presented with chest pain, in your H&P and subsequent progress notes rule out acute non ST segment elevation myocardial infarction is noted and further clarification is needed. History/Risk Factors: CVA, TIA, Diabetes mellitus, Hypertension, Coronary Artery Disease, Congestive Heart Failure Clinical Indicators: 78-year-old male present for evaluation of chest pain, substernal, left chest that had resolved when he presented to ED brought in by EMS. The patient also has shortness of breath. Vital signs on admission 160/62 80 24 98.4 99 % 2/L NC Lab findings: Troponin I 0.046, 0.051, 0.040 Chest x-ray: Correlate for CHF Underlying infiltrate not excluded. Treatment: ECHO: left ventricular systolic function is moderate-severely impaired with, and EF between 30-35 % IV Lasix (now PO) ASA PO Plavix PO, Lopressor PO Cardiology Consults: Episode of chest discomfort, EKG shows normal sinus rhythm with ST-T wave changes noted in the inferior leads. Mild troponin abnormality, could reflect acute coronary syndrome however we well continue with maximum medical therapy at this time. In your professional opinion, can you please clarify status of the condition: Acute non ST segment elevation myocardial infarction Ruled out Acute coronary syndrome ruled in for Acute non ST segment elevation myocardial infarction Chest pain possible unstable angina Other, please specify Unable to determine (Last Revision: November 2017) possible Acute non ST segment elevation myocardial infarction MTDD
[2019-03-31] MEDS: FUROSEMIDE 20 MG TAB PO SCH (16:31)
[2019-03-31 17:01] LABS: Glucose,Whole Blood 165 mg/dL (75-99)
[2019-03-31 20:58] LABS: Glucose,Whole Blood 96 mg/dL (75-99)
[2019-03-31] MEDS: ATORVASTATIN 80 MG TAB PO SCH (21:16)
--- NOTE | 2019-03-31 22:34 | P.PN ---
Subjective Progress Note Date: 03/31/19 78-year-old male who resides in a senior apartment relates that he had the progressive shortness of breath over the last several days and then started to have chest pain that was in his anterior chest area. 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 It was complaining of some pain onto his left leg. Upon arrival was evidence of edema and evidence of cellulitis to the left lower extremity and with this the infectious diseases consultation was requested. The patient does not believe it is had a fever fe els poorly overall. He has progressive weakness over time. He utilizes his power wheelchair to get out in the public utilizes his standard wheelchair within his senior apartment. 03/31/2019 the patient has been ready for discharge to rheumatologic vehicle. Urine culture has gram-negative bacilli patient relates he is feeling somewhat better. Objective - Vital Signs Vital signs: Vital Signs Temp 97.8 F 03/31/19 16:00 Pulse 60 03/31/19 16:00 Resp 16 03/31/19 16:00 BP 115/58 03/31/19 16:00 Pulse Ox 92 L 03/31/19 16:00 Intake & Output 03/31/19 03/31/19 04/01/19 06:59 18:59 06:59 Intake Total 50 720 Output Total 1775 Balance -1725 720 Weight 87.9 kg Intake: IV 40 Invasive Line 3 30 Invasive Line 4 10 Intake, IV Titration 50 Amount ceFAZolin 1,000 mg In 50 Sodium Chloride 0.9% 50 ml @ 100 mls/hr IVPB Q8H [facility] Rx#:[id number] Oral 680 Output: Urine 1775 Other: Voiding Method Urinal Urinal # Voids 0 # Bowel Movements 1 - Exam 78-year-old male comfortable at this time HEENT: Anicteric conjunctiva are pink and moist nasal mucosa grossly intact without significant lesions, there is no thrush. Edentulous with poor hearing Neck: The neck is supple without significant lymphadenopathy or thyromegaly. Lungs: Symmetrical air entry is noted today basilar crackles are heard no dullness or egophony Heart: Irregular with a soft S4 no audible murmur click or rub Abdomen: Obese, Positive bowel sounds soft and nontender without palpable masses or organomegaly. There was no guarding or rebound. Extremities: The upper extremities have excellent pulses they are symmetric, no significant petechiae or telangiectasia. No splinter hemorrhages were noted. Right lower extremity shows evidence of the [id number] amputation, residual limb site is intact without open lesions. Left lower fluctuations of the extensive edema erythema and skin ulcerations that are somewhat scattered distally with some bruising through the ulcerations. It is tender the erythema however does not track above the knee. If he does not have extensive left inguinal lymphadenopathy. No other abnormal lymph nodes were noted. Neuro: Awake alert oriented to person place and time. There are no acute new gross focal sensory motor deficits. - Labs CBC & Chem 7: 03/31/19 06:07 03/31/19 06:07 Labs: Abnormal Lab Results - Last 24 Hours (Table) 03/31/19 03/31/19 03/31/19 Range/Units 06:07 06:07 06:28 WBC 13.1 H (3.8-10.6) k/uL RBC 3.60 L (4.30-5.90) m/uL Hgb 10.9 L (13.0-17.5) gm/dL Hct 34.9 L (39.0-53.0) % Neutrophils # 9.8 H (1.3-7.7) k/uL BUN 51 H (9-20) mg/dL Creatinine 2.30 H (0.66-1.25) mg/dL Glucose 65 L (74-99) mg/dL POC Glucose (mg/dL) 66 L (75-99) mg/dL 03/31/19 03/31/19 03/31/19 Range/Units 06:45 07:11 10:24 WBC (3.8-10.6) k/uL RBC (4.30-5.90) m/uL Hgb (13.0-17.5) gm/dL Hct (39.0-53.0) % Neutrophils # (1.3-7.7) k/uL BUN (9-20) mg/dL Creatinine (0.66-1.25) mg/dL Glucose (74-99) mg/dL POC Glucose (mg/dL) 65 L 108 H 236 H (75-99) mg/dL 03/31/19 03/31/19 Range/Units 12:05 16:55 WBC (3.8-10.6) k/uL RBC (4.30-5.90) m/uL Hgb (13.0-17.5) gm/dL Hct (39.0-53.0) % Neutrophils # (1.3-7.7) k/uL BUN (9-20) mg/dL Creatinine (0.66-1.25) mg/dL Glucose (74-99) mg/dL POC Glucose (mg/dL) 228 H 165 H (75-99) mg/dL Microbiology - Last 24 Hours (Table) 03/28/19 19:55 Blood Culture - Preliminary Blood No Growth after 72 hours 03/29/19 18:10 Gram Stain - Preliminary Leg - Left Wound Culture - Preliminary Enterobacter cloacae Laboratory Results WBC 13.1 k/uL (3.8-10.6) H 03/31/19 06:07 RBC 3.60 m/uL (4.30-5.90) L 03/31/19 06:07 Hgb 10.9 gm/dL (13.0-17.5) L 03/31/19 06:07 Hct 34.9 % (39.0-53.0) L 03/31/19 06:07 MCV 97.0 fL (80.0-100.0) 03/31/19 06:07 MCH 30.2 pg (25.0-35.0) 03/31/19 06:07 MCHC 31.1 g/dL (31.0-37.0) 03/31/19 06:07 RDW 15.0 % (11.5-15.5) 03/31/19 06:07 Plt Count 224 k/uL (150-450) 03/31/19 06:07 Neutrophils % 75 % 03/31/19 06:07 Lymphocytes % 15 % 03/31/19 06:07 Monocytes % 6 % 03/31/19 06:07 Eosinophils % 2 % 03/31/19 06:07 Basophils % 0 % 03/31/19 06:07 Neutrophils # 9.8 k/uL (1.3-7.7) H 03/31/19 06:07 Lymphocytes # 1.9 k/uL (1.0-4.8) 03/31/19 06:07 Monocytes # 0.8 k/uL (0-1.0) 03/31/19 06:07 Eosinophils # 0.3 k/uL (0-0.7) 03/31/19 06:07 Basophils # 0.0 k/uL (0-0.2) 03/31/19 06:07 Hypochromasia Moderate 03/31/19 06:07 Anisocytosis Slight 03/28/19 09:50 PT 10.1 sec (9.0-12.0) 03/28/19 09:50 INR 0.9 (<1.2) 03/28/19 09:50 APTT 25.0 sec (22.0-30.0) 03/28/19 09:50 Sodium 144 mmol/L (137-145) 03/31/19 06:07 Potassium 4.1 mmol/L (3.5-5.1) 03/31/19 06:07 Chloride 100 mmol/L (98-107) 03/31/19 06:07 Carbon Dioxide 28 mmol/L (22-30) 03/31/19 06:07 Anion Gap 16 mmol/L 03/31/19 06:07 BUN 51 mg/dL (9-20) H 03/31/19 06:07 Creatinine 2.30 mg/dL (0.66-1.25) H 03/31/19 06:07 Est GFR (CKD-EPI)AfAm 30 (>60 ml/min/1.73 sqM) 03/31/19 06:07 Est GFR (CKD-EPI)NonAf 26 (>60 ml/min/1.73 sqM) 03/31/19 06:07 Glucose 65 mg/dL (74-99) L 03/31/19 06:07 POC Glucose (mg/dL) 96 mg/dL (75-99) 03/31/19 20:55 POC Glu Track Laying Supervisor ID Saida Urrutia 03/31/19 20:[address] Glu mg/dL 258 03/30/19 05:59 Hemoglobin A1c 10.6 % (4.0-6.0) H 03/30/19 05:59 Calcium 8.8 mg/dL (8.4-10.2) 03/31/19 06:07 Magnesium 2.3 mg/dL (1.6-2.3) 03/28/19 09:50 Total Bilirubin 0.7 mg/dL (0.2-1.3) 03/28/19 09:50 AST 18 U/L (17-59) 03/28/19 09:50 ALT 23 U/L (21-72) 03/28/19 09:50 Alkaline Phosphatase 135 U/L (38-126) H 03/28/19 09:50 Creatine Kinase 86 U/L (55-170) 03/28/19 09:50 Troponin I 0.040 ng/mL (0.000-0.034) H* 03/28/19 21:42 NT-Pro-B Natriuret Pep 13830 pg/mL 03/28/19 09:50 Total Protein 7.1 g/dL (6.3-8.2) 03/28/19 09:50 Albumin 4.0 g/dL (3.5-5.0) 03/28/19 09:50 Lipase 174 U/L (23-300) 03/28/19 09:50 Microbiology 03/28/19 19:55 Blood Blood Culture - Preliminary No Growth after 72 hours 03/29/19 18:10 Leg - Left Gram Stain - Preliminary 03/29/19 18:10 Leg - Left Wound Culture - Preliminary Enterobacter cloacae Assessment and Plan (1) Acute exacerbation of CHF (congestive heart failure) Current Visit: Yes Status: Acute Code(s): I50.9 - HEART FAILURE, UNSPECIFIED SNOMED Code(s): 539331382 (2) Chest pain Current Visit: Yes Status: Acute Code(s): R07.9 - CHEST PAIN, UNSPECIFIED SNOMED Code(s): 66366472 (3) Cellulitis of left leg Narrative/Plan: 78-year-old male presents to Hospital increasing shortness of breath and pain and swelling redness and drainage of his left leg. Patient has a prior history of the right [id number] amputation and is somewhat concerned. This time is evidence of the extensive cellulitis on the left leg and antibiotic therapy with Ancef has been started. Local wound care with Silvadene as well as a rapid been requested. Elevation of the limb at rest. Treatment of his heart failure will help the extensive edema which will allow the antibiotic therapy to be effective. If arterial Dopplers are available to the left limb, should be considered so long-term compressive therapy can be arranged. 03/31/2019 the patient is feeling slightly better. He has been doing modestly well however culture now shows evidence of gram-negative bacilli with Enterobacter and Ancef was changed to Rocephin. Wound care with Silvadene and a wrap can be applied. There is evidence of vascular surgery evaluations with adequate flow to the left lower extremity. Elevate while he is at rest. Midline catheter and transfer to [facility] as planned. 10 days of therapy and follow- up in the wound center. Current Visit: Yes Status: Acute Code(s): L03.116 - CELLULITIS OF LEFT LOWER LIMB SNOMED Code(s): 501360394
--- NOTE | 2019-03-31 23:02 | P.PN ---
Subjective Progress Note Date: 03/31/19 Principal diagnosis: This is an 78 year old male that was admitted with left leg cellulitis and features of chronic heart failure and is being closely monitored. Patient is currently sitting up in the bedside chair in no acute distress. Discussed with the patient at length about the use of insulin at home and patient states that he normally checks his blood sugar twice a day. Patients blood sugars have varied during this hospitalization. Will continue to monitor and adjust acc ordingly. Patient denies any chest pain at this time. Patient denies any shortness of breath or palpitations. Patient is currently afebrile. Patient has the left leg down and not elevated during visit today. Guarded prognosis. 03/31/2019 Patient is sitting up in the recliner in no acute distress with sister at the bedside. Patient denies any shortness of breath, chest pain, or palpitations at this time. Patient denies any nausea or vomiting at this time. Patient tolerating diet. Patients blood sugars continue to drop overnight and early into the morning and insulin of Levemir dose is being adjusted accordingly. Currently at 35 units twice daily with a sliding scale ACHS. Patient is a poorly controlled diabetic with multiple complex medical issues and is being closely monitored. Infectious disease and cardiology are following. Cardiology has cleared the patient from their perspective and patient is off of IV lasix at this time. Cultures have grown gram negative bacilli with enterobactor and patient is currently on IV rocephin. Patient is agreeable to go to [facility] for continued IV antibiotic therapy and wound care per infectious disease recommendations. Guarded prognosis. Objective - Vital Signs Vital signs: Vital Signs Temp 97.8 F 03/31/19 16:00 Pulse 60 03/31/19 16:00 Resp 16 03/31/19 16:00 BP 115/58 03/31/19 16:00 Pulse Ox 92 L 03/31/19 16:00 Intake & Output 03/31/19 03/31/19 04/01/19 06:59 18:59 06:59 Intake Total 50 720 Output Total 1775 Balance -1725 720 Weight 87.9 kg Intake: IV 40 Invasive Line 3 30 Invasive Line 4 10 Intake, IV Titration 50 Amount ceFAZolin 1,000 mg In 50 Sodium Chloride 0.9% 50 ml @ 100 mls/hr IVPB Q8H [facility] Rx#:[id number] Oral 680 Output: Urine 1775 Other: Voiding Method Urinal Urinal # Voids 0 # Bowel Movements 1 - Exam PHYSICAL EXAMINATION: GENERAL: The patient is alert and oriented x3, not in any acute distress. Obese. Vital signs are stable. Blood pressure is 103/51, pulse is 63, respirations are 16, temp is 98.0F, oxygen saturation is 93% on room air HEENT: Pupils are round and equally reacting to light. EOMI. No scleral icterus. No conjunctival pallor. Normocephalic, atraumatic. No pharyngeal erythema. No thyromegaly. CARDIOVASCULAR: S1 and S2 present. No murmurs, rubs, or gallops. PULMONARY: Diminished lung sounds in the bases, bilateral rhonchi and crackles noted. ABDOMEN: Soft, non-tender, obese, normoactive bowel sounds. No palpable organomegaly. MUSCULOSKELETAL: No joint swelling or deformity. EXTREMITIES: No cyanosis or clubbing noted. Left leg is edematous and swollen with erythema noted. right BKA. Swelling of the left leg has improved. NEUROLOGICAL: Gross neurological examination did not reveal any focal deficits. SKIN: left lower extremity is erythematous, wrinkled, and mildly edematous. Redness noted of the left foot and particularly the top of the foot and left great toe. - Labs CBC & Chem 7: 03/31/19 06:07 03/31/19 06:07 Labs: Abnormal Lab Results - Last 24 Hours (Table) 03/31/19 03/31/19 03/31/19 Range/Units 06:07 06:07 06:28 WBC 13.1 H (3.8-10.6) k/uL RBC 3.60 L (4.30-5.90) m/uL Hgb 10.9 L (13.0-17.5) gm/dL Hct 34.9 L (39.0-53.0) % Neutrophils # 9.8 H (1.3-7.7) k/uL BUN 51 H (9-20) mg/dL Creatinine 2.30 H (0.66-1.25) mg/dL Glucose 65 L (74-99) mg/dL POC Glucose (mg/dL) 66 L (75-99) mg/dL 03/31/19 03/31/19 03/31/19 Range/Units 06:45 07:11 10:24 WBC (3.8-10.6) k/uL RBC (4.30-5.90) m/uL Hgb (13.0-17.5) gm/dL Hct (39.0-53.0) % Neutrophils # (1.3-7.7) k/uL BUN (9-20) mg/dL Creatinine (0.66-1.25) mg/dL Glucose (74-99) mg/dL POC Glucose (mg/dL) 65 L 108 H 236 H (75-99) mg/dL 03/31/19 03/31/19 Range/Units 12:05 16:55 WBC (3.8-10.6) k/uL RBC (4.30-5.90) m/uL Hgb (13.0-17.5) gm/dL Hct (39.0-53.0) % Neutrophils # (1.3-7.7) k/uL BUN (9-20) mg/dL Creatinine (0.66-1.25) mg/dL Glucose (74-99) mg/dL POC Glucose (mg/dL) 228 H 165 H (75-99) mg/dL Microbiology - Last 24 Hours (Table) 03/28/19 19:55 Blood Culture - Preliminary Blood No Growth after 72 hours 03/29/19 18:10 Gram Stain - Preliminary Leg - Left Wound Culture - Preliminary Enterobacter cloacae Assessment and Plan Assessment: Chest pain possible unstable angina. Rule out acute non-ST segment elevation myocardial infarction. Troponin 0.046, present on admission Left leg swelling and acute cellulitis; On IV antibiotics. Infectious disease is following. 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 Infectious disease and cardiology are following closely. We will continue to monitor closely. Patient is currently off of IV lasix and labs will be closely monitored. Guarded prognosis. Further recommendations to follow. Possible discharge in 24-48 hours to [facility] in [place]. Case management and social work are following.
[2019-04-01 03:17] LABS: Glucose,Whole Blood 78 mg/dL (75-99)
[2019-04-01 06:51] LABS: Glucose,Whole Blood 76 mg/dL (75-99)
[2019-04-01] MEDS: CALCIUM ACETATE 667 MG TAB PO SCH (06:53)
[2019-04-01 07:02] LABS: Calcium 8.4 mg/dL (8.4-10.2); Potassium 4.5 mmol/L (3.5-5.1)
[2019-04-01] MEDS: ALLOPURINOL 100 MG TAB PO SCH (08:41)
[2019-04-01] MEDS: CLOPIDOGREL 75 MG TAB PO SCH (08:42)
[2019-04-01] MEDS: FAMOTIDINE 20 MG TAB PO SCH (08:42)
[2019-04-01] MEDS: MULTIVITAMINS, THERA 1 EACH TAB PO SCH (08:42)
[2019-04-01] MEDS: FUROSEMIDE 20 MG TAB PO SCH (08:42)
[2019-04-01] MEDS: GABAPENTIN 400 MG CAP PO SCH ×3 (08:42→20:32)
[2019-04-01] MEDS: METOPROLOL TARTRATE 50 MG TAB PO SCH (08:42)
[2019-04-01] MEDS: CARBIDOPA-LEVODOPA 25-100 MG 1 EACH TAB PO SCH ×3 (08:42→20:32)
[2019-04-01] MEDS: ASPIRIN 81 MG PO SCH (08:42)
[2019-04-01] MEDS: INSULN ASP PRT/INSULIN ASPART 100 UNIT/ML 10 ML VIAL SQ SCH ×2 (08:52→20:31)
[2019-04-01 10:42] VITALS: BMI 32.5
[2019-04-01 12:14] LABS: Glucose,Whole Blood 214 mg/dL (75-99)
--- NOTE | 2019-04-01 13:01 | P.DS ---
Providers Date of admission: 03/30/19 08:10 Expected date of discharge: 04/01/19 Attending physician: Eddie Coyne Consults: 03/28/19 11:29 Consult Physician Routine Consulting Provider: Jefferson Jerry Consult Reason/Comments: chf Do you want consulting provider notified?: Yes 03/28/19 19:46 Consult Physician Routine Consulting Provider: Bang Kebede Consult Reason/Comments: cellulitis Do you want consulting provider notified?: Yes Primary care physician: [facility] Course: Final diagnosis Chest pain possible unstable angina. Rule out acute non-ST segment elevation myocardial infarction Elevated troponin 0.046 Left leg swelling and acute cellulitis Congestive heart failure with acute on chronic systolic dysfunction Increased creatinine with possible chronic kidney disease stage III Diabetes mellitus type 2 History of CVA/TIA Hypertension Hyperlipidemia History of peripheral vascular disease History of Parkinson's History of coronary artery disease with coronary artery bypass grafting Right BKA Discharge disposition This patient is being discharged in a stable condition with guarded prognosis to [facility] for continued IV antibiotic therapy per infectious disease recommendations. Patient will complete a ten-day course of IV Rocephin and follow-up with Dr. Kebede in 10 days. History of present illness This is an 78-year-old male who was admitted for left leg cellulitis with features of chronic heart failure. Cardiology and infectious disease were following. From cardiology's perspective patient is stable for discharge to rehab. Patient will resume Demadex 60 mg daily in 2 days as he was receiving IV Lasix while hospitalized. Patient did have an elevated creatinine and will have a repeat BMP drawn in 2-3 days. Patient's blood sugars fluctuated during this hospital course and the Levemir dose was adjusted to 35 units twice daily. Patient does have a tendency to have lower blood sugar readings in the vehicle body maker before eating breakfast. Patient denies any chest pain, shortness of breath, or palpitations at this time. Patient is afebrile. Patient did have cultures that showed gram-negative bacilli with Enterobacter and per infectious disease recommendations patient will continue IV antibiotic therapy for the next 10 days. Patient will continue with wound care therapy per infectious disease recommendations of Silvadene cream applied daily to the left lower extremity and Charanjit wrap along with elevating the leg while at rest. Patient is to follow-up in the wound care clinic in 10 days. Patient denies any nausea or vomiting and is tolerating diet well. Currently patient is stable with much improvement with a guarded prognosis. On exam vital signs are stable. Blood pressure is 111/54, pulse is 60, respirations are 16, temp is 98.2F, oxygen saturations 96% on room air. Cardio S1 and S2 are muffled. Respiratory system shows diminished sounds bilaterally with a few scattered rhonchi noted. Abdomen is soft, non-tender, and obese. Nervous system shows no focal deficits with mild diffuse weakness. Patient does have a right BKA with prosthesis but uses a mechanical wheelchair for mobility. Please refer to medication reconciliation sheet for a list of medications. Patient Condition at Discharge: Fair Plan - Discharge Summary New Discharge Prescriptions: New Torsemide [Demadex] 60 mg PO DAILY #30 tablet Insuln Asp Prt/Insulin Aspart [NovoLOG MIX 70-30 VIAL] 35 unit SQ AC-BID vial cefTRIAXone [Rocephin] 1 gm IVPB Q24HR 10 Days vial SILVER sulfADIAZINE Cream [Silvadene 1% Cream] 1 applic TOPICAL DAILY applic Continue Atorvastatin [Lipitor] 80 mg PO HS Aspirin 325 mg PO DAILY Gabapentin 400 mg PO TID Carbidopa-Levodopa 25-100 mg [Sinemet 25-100 mg] 1 tab PO TID Famotidine [Pepcid] 20 mg PO DAILY Multivitamin [Men's Multi-Vitamin] 1 tab PO DAILY Ergocalciferol (Vitamin D2) [Vitamin D2] 50,000 unit PO Q30D Clopidogrel [Plavix] 75 mg PO DAILY Allopurinol [Zyloprim] 100 mg PO DAILY Calcitriol [Rocaltrol] 0.25 mcg PO MO Calcium Acetate [PhosLo] 667 mg PO DAILY Metoprolol Tartrate [Lopressor] 50 mg PO DAILY Discontinued Torsemide [Demadex] 20 mg PO BID Insulin NPH Hum/Reg Insulin Hm [NovoLIN 70-30 100 UNIT/ML VIAL] 50 unit SQ AC-BID Discharge Medication List Aspirin 325 mg PO DAILY 07/29/15 [History] Atorvastatin [Lipitor] 80 mg PO HS 07/29/15 [History] Carbidopa-Levodopa 25-100 mg [Sinemet 25-100 mg] 1 tab PO TID 07/29/15 [History] Gabapentin 400 mg PO TID 07/29/15 [History] Famotidine [Pepcid] 20 mg PO DAILY 04/07/18 [History] Allopurinol [Zyloprim] 100 mg PO DAILY 07/08/18 [History] Clopidogrel [Plavix] 75 mg PO DAILY 07/08/18 [History] Ergocalciferol (Vitamin D2) [Vitamin D2] 50,000 unit PO Q30D 07/08/18 [History] Multivitamin [Men's Multi-Vitamin] 1 tab PO DAILY 07/08/18 [History] Calcitriol [Rocaltrol] 0.25 mcg PO MO 11/19/18 [History] Calcium Acetate [PhosLo] 667 mg PO DAILY 11/19/18 [History] Metoprolol Tartrate [Lopressor] 50 mg PO DAILY 03/28/19 [History] Torsemide [Demadex] 60 mg PO DAILY #30 tablet 03/31/19 [Rx] Insuln Asp Prt/Insulin Aspart [NovoLOG MIX 70-30 VIAL] 35 unit SQ AC-BID vial 04/01/19 [Rx] SILVER sulfADIAZINE Cream [Silvadene 1% Cream] 1 applic TOPICAL DAILY applic 04/01/19 [Rx] cefTRIAXone [Rocephin] 1 gm IVPB Q24HR 10 Days vial 04/01/19 [Rx] Follow up Appointment(s)/Referral(s): Nathan Jimenez DO [Primary Care Provider] - 1-2 days Bang Kebede MD [STAFF PHYSICIAN] - 1 Week Ambulatory/Diagnostic Orders: Basic Metabolic Panel [LAB.AMB] Time Frame: 3 Days, Location: None Selected Activity/Diet/Wound Care/Special Instructions: Patient is going to [facility] [employer] Activity as tolerated continue current diet low salt/ heart healthy/ diabetic diet continue IV antibiotics x 10 days per infectious disease Wound care as instructed per Dr. Delio alegria daily to the left lower extremity with an charanjit wrap application elevate the left leg often Follow up in the wound care clinic in 10 days repeat BMP labs in 2-3 days Hold Demedex for today 04/01/19 and 04/02/19 and ok to resume on 04/03/19 Discharge Disposition: TRANSFER TO SNF/ECF
[2019-04-01] MEDS: SILVER sulfADIAZINE Cream 400 GM 1 APPLIC APPLIC TOPICAL SCH (13:08)
--- NOTE | 2019-04-01 14:27 | P.PN ---
Subjective Progress Note Date: 04/01/19 This is an 78-year-old gentleman with known history of coronary artery disease with prior bypass surgery, aortic valve disease with prior aortic valve replacement, severe underlying peripheral arterial disease, diabetes, hypertension, hyperlipidemia, peripheral tibial disease for which he underwent successful balloon angioplasty of the right SFA and right popliteal and right tibial peroneal trunk in 2014 followed by a right below the knee amputation for critical limb ischemia, for which the patient has undergone arthrectomy of the left popliteal, balloon angioplasty of the left popliteal by Dr. Donald in March of last year, history also of prior CVA, Parkinson's, history of alcohol abuse but he quit approximately 8 years ago. He presents to the hospital on this occasion with symptoms of chest discomfort, he also had stated that he was more short of breath than usual. Patient does have a right below the knee amputation, and he has had significant swelling in his left lower extremity with evidence of what appears to be cellulitis. Blood pressure on arrival here 160/60, heart rate in the 80s, afebrile. Chest x-ray shows congestive heart failure, underlying infiltrate not excluded. EKG shows normal sinus rhythm with first-degree AV block and nonspecific ST-T wave changes. White blood cell count 8.6, hemoglobin 10.5, platelet count 203. Sodium 138, potassium 4.6, BUN 36 c reatinine 1.7 on admission, 40 and 1.6 this morning. Troponins 0.04, 0.05, 0.04. BNP level 14,500. At the time of my examination this morning, the patient is sitting up at bedside eating his breakfast, he denies any current chest discomfort, does state that he feels his breathing is improved as compared with yesterday. His weight is down 1 kg today. He is on 40 mg of IV Lasix 3 times a day. 03/30/2019 Patient was seen and examined this morning sitting up in the chair at bedside. Overall diuresing well, creatinine today is 2.1 up from 1.6 yesterday repeat echocardiogram with Doppler study is yet pending. Blood pressure 122/60 with a heart rate is 60, 97% on room air. 03/31/2019 Patient was examined this morning, sitting up in the chair bedside. His daughter is present this morning. He is feeling much better overall. His weight is down 4 kg today. White blood cell count 13.1, hemoglobin 10.9, platelet count 224. Sodium 144, potassium 4.1, BUN 51 and creatinine 2.3. IV Lasix will be discontinued and from tomorrow we will initiate by mouth Lasix at 60 mg twice a day. Check lytes BUN and creatinine in the morning. 04/01/2019 Patient seen and examined this morning, overall feeling well. Blood pressure 102/50 with a heart rate in the 50s, 94% on room air. Objective - Vital Signs Vital signs: Vital Signs Temp 98.2 F 04/01/19 12:00 Pulse 53 L 04/01/19 12:00 Resp 16 04/01/19 12:00 BP 102/51 04/01/19 12:00 Pulse Ox 94 L 04/01/19 12:00 Intake & Output 03/31/19 04/01/19 04/01/19 18:59 06:59 18:59 Intake Total 720 30 740 Output Total 300 Balance 720 30 440 Weight 91.4 kg 91.4 kg Intake: IV 40 30 20 Invasive Line 3 30 Invasive Line 4 10 30 20 Oral 680 720 Output: Urine 300 Other: Voiding Method Urinal Urinal Urinal # Voids 0 1 # Bowel Movements 1 - Exam PHYSICAL EXAMINATION: GENERAL: 78-year-old gentleman in no acute distress at the time of my examination HEENT: Head is atraumatic, normocephalic. Pupils equal, round. Sclera anicteric. Conjunctiva are clear. Mucous membranes of the mouth are moist. Neck is supple. There is no elevated jugular venous pressure. No carotid bruit is heard. HEART EXAMINATION: Heart S1 and S2 systolic ejection murmur is heard. CHEST EXAMINATION: Lungs reveal scattered coarse rhonchi throughout, diminished air entry to the bases bilaterally with expiratory wheezing. ABDOMEN: Soft, obese, nontender. Bowel sounds are heard. No organomegaly noted. EXTREMITIES:1+ peripheral pulses to the left lower extremity with evidence of trace to1+ peripheral edema,chronic venous stasis redness and blistering noted. . Right BKA NEUROLOGIC patient is awake, alert and oriented 3 . - Labs CBC & Chem 7: 03/31/19 06:07 04/01/19 06:20 Labs: Abnormal Lab Results - Last 24 Hours (Table) 03/31/19 04/01/19 04/01/19 Range/Units 16:55 06:20 11:46 Carbon Dioxide 31 H (22-30) mmol/L BUN 57 H (9-20) mg/dL Creatinine 2.32 H (0.66-1.25) mg/dL Glucose 59 L (74-99) mg/dL POC Glucose (mg/dL) 165 H 214 H (75-99) mg/dL Microbiology - Last 24 Hours (Table) 03/28/19 19:55 Blood Culture - Preliminary Blood No Growth after 72 hours 03/29/19 18:10 Gram Stain - Preliminary Leg - Left Wound Culture - Preliminary Enterobacter cloacae Assessment and Plan Plan: Assessment and plan #1 systolic congestive heart failure acute on chronic #2 known history of coronary artery disease with prior coronary artery bypass grafting surgery and aortic valve replacement #3 PVD and PAD, patient had undergone angioplasty of the right SFA and right popliteal and right tibial peroneal trunk in 2014 followed by a right below the knee amputation, subsequent to that in March of last year he underwent arthrectomy and balloon angioplasty of the left popliteal #4 hypertension #5 hyperlipidemia #6 diabetes #7 prior CVA #8 Parkinson's #9 acute on chronic renal failure #10 anemia #11 episode of chest discomfort, EKG shows normal sinus rhythm with ST-T wave changes noted in the inferior lateral leads. Mild troponin abnormality, could reflect acute coronary syndrome however we will continue with maximum medical therapy at this time. Plan Patient may be discharged home today from cardiology's perspective, we'll recommend to hold the diuretics for 48 hours then resume Demadex at 60 mg daily. Check lytes BUN and creatinine as an outpatient. DNP note has been reviewed, I agree with a documented findings and plan of care. Patient was seen and examined.
[2019-04-01 17:12] LABS: Glucose,Whole Blood 92 mg/dL (75-99)
[2019-04-01] MEDS: ATORVASTATIN 80 MG TAB PO SCH (20:32)
[2019-04-01 21:04] LABS: Glucose,Whole Blood 197 mg/dL (75-99)
--- NOTE | 2019-04-01 23:47 | P.PN ---
Subjective Progress Note Date: 04/01/19 78-year-old male who resides in a senior apartment relates that he had the progressive shortness of breath over the last several days and then started to have chest pain that was in his anterior chest area. 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 It was complaining of some pain onto his left leg. Upon arrival was evidence of edema and evidence of cellulitis to the left lower extremity and with this the infectious diseases consultation was requested. The patient does not believe it is had a fever fe els poorly overall. He has progressive weakness over time. He utilizes his power wheelchair to get out in the public utilizes his standard wheelchair within his senior apartment. 03/31/2019 the patient has been ready for discharge to rheumatologic vehicle. Urine culture has gram-negative bacilli patient relates he is feeling somewhat better. 04/01/2019 the patient relates that he is feeling somewhat better and that he is not having as much shortness of breath, lower extremity edema is improved but had significant cellulitis in the left leg with gram-negative bacilli Enterobacter cloacae which was not susceptible to oral agents. Objective - Vital Signs Vital signs: Vital Signs Temp 98.3 F 04/01/19 16:00 Pulse 56 L 04/01/19 16:00 Resp 16 04/01/19 16:00 BP 138/61 04/01/19 16:00 Pulse Ox 96 04/01/19 16:00 Intake & Output 04/01/19 04/01/19 04/02/19 06:59 18:59 06:59 Intake Total 30 1100 Output Total 800 Balance 30 300 Weight 91.4 kg 91.4 kg Intake: IV 30 20 Invasive Line 4 30 20 Oral 1080 Output: Urine 800 Other: Voiding Method Urinal Urinal # Voids 1 # Bowel Movements 1 - Exam 78-year-old male comfortable at this time HEENT: Anicteric conjunctiva are pink and moist nasal mucosa grossly intact without significant lesions, there is no thrush. Edentulous with poor hearing Neck: The neck is supple without significant lymphadenopathy or thyromegaly. Lungs: Symmetrical air entry is noted today basilar crackles are heard no dullness or egophony Heart: Irregular with a soft S4 no audible murmur click or rub Abdomen: Obese, Positive bowel sounds soft and nontender without palpable masses or organomegaly. There was no guarding or rebound. Extremities: The upper extremities have excellent pulses they are symmetric, no significant petechiae or telangiectasia. No splinter hemorrhages were noted. Right lower extremity shows evidence of the [id number] amputation, residual limb site is intact without open lesions. Left lower fluctuations of the extensive edema erythema and skin ulcerations that are somewhat scattered distally with some bruising through the ulcerations. It is tender the erythema however does not track above the knee. If he does not have extensive left inguinal lymphadenopathy. No other abnormal lymph nodes were noted. Neuro: Awake alert oriented to person place and time. There are no acute new gross focal sensory motor deficits. - Labs CBC & Chem 7: 03/31/19 06:07 04/01/19 06:20 Labs: Abnormal Lab Results - Last 24 Hours (Table) 04/01/19 04/01/19 04/01/19 Range/Units 06:20 11:46 21:01 Carbon Dioxide 31 H (22-30) mmol/L BUN 57 H (9-20) mg/dL Creatinine 2.32 H (0.66-1.25) mg/dL Glucose 59 L (74-99) mg/dL POC Glucose (mg/dL) 214 H 197 H (75-99) mg/dL Microbiology - Last 24 Hours (Table) 03/29/19 18:10 Gram Stain - Final Leg - Left Wound Culture - Final Enterobacter cloacae 03/28/19 19:55 Blood Culture - Preliminary Blood No Growth after 96 hours Laboratory Results WBC 13.1 k/uL (3.8-10.6) H 03/31/19 06:07 RBC 3.60 m/uL (4.30-5.90) L 03/31/19 06:07 Hgb 10.9 gm/dL (13.0-17.5) L 03/31/19 06:07 Hct 34.9 % (39.0-53.0) L 03/31/19 06:07 MCV 97.0 fL (80.0-100.0) 03/31/19 06:07 MCH 30.2 pg (25.0-35.0) 03/31/19 06:07 MCHC 31.1 g/dL (31.0-37.0) 03/31/19 06:07 RDW 15.0 % (11.5-15.5) 03/31/19 06:07 Plt Count 224 k/uL (150-450) 03/31/19 06:07 Neutrophils % 75 % 03/31/19 06:07 Lymphocytes % 15 % 03/31/19 06:07 Monocytes % 6 % 03/31/19 06:07 Eosinophils % 2 % 03/31/19 06:07 Basophils % 0 % 03/31/19 06:07 Neutrophils # 9.8 k/uL (1.3-7.7) H 03/31/19 06:07 Lymphocytes # 1.9 k/uL (1.0-4.8) 03/31/19 06:07 Monocytes # 0.8 k/uL (0-1.0) 03/31/19 06:07 Eosinophils # 0.3 k/uL (0-0.7) 03/31/19 06:07 Basophils # 0.0 k/uL (0-0.2) 03/31/19 06:07 Hypochromasia Moderate 03/31/19 06:07 Anisocytosis Slight 03/28/19 09:50 PT 10.1 sec (9.0-12.0) 03/28/19 09:50 INR 0.9 (<1.2) 03/28/19 09:50 APTT 25.0 sec (22.0-30.0) 03/28/19 09:50 Sodium 142 mmol/L (137-145) 04/01/19 06:20 Potassium 4.5 mmol/L (3.5-5.1) 04/01/19 06:20 Chloride 101 mmol/L (98-107) 04/01/19 06:20 Carbon Dioxide 31 mmol/L (22-30) H 04/01/19 06:20 Anion Gap 10 mmol/L 04/01/19 06:20 BUN 57 mg/dL (9-20) H 04/01/19 06:20 Creatinine 2.32 mg/dL (0.66-1.25) H 04/01/19 06:20 Est GFR (CKD-EPI)AfAm 30 (>60 ml/min/1.73 sqM) 04/01/19 06:20 Est GFR (CKD-EPI)NonAf 26 (>60 ml/min/1.73 sqM) 04/01/19 06:20 Glucose 59 mg/dL (74-99) L 04/01/19 06:20 POC Glucose (mg/dL) 197 mg/dL (75-99) H 04/01/19 21:01 POC Glu Derrick Car Operator ID Glendy Celeste Candy 04/01/19 21:[address] Glu mg/dL 258 03/30/19 05:59 Hemoglobin A1c 10.6 % (4.0-6.0) H 03/30/19 05:59 Calcium 8.4 mg/dL (8.4-10.2) 04/01/19 06:20 Magnesium 2.3 mg/dL (1.6-2.3) 03/28/19 09:50 Total Bilirubin 0.7 mg/dL (0.2-1.3) 03/28/19 09:50 AST 18 U/L (17-59) 03/28/19 09:50 ALT 23 U/L (21-72) 03/28/19 09:50 Alkaline Phosphatase 135 U/L (38-126) H 03/28/19 09:50 Creatine Kinase 86 U/L (55-170) 03/28/19 09:50 Troponin I 0.040 ng/mL (0.000-0.034) H* 03/28/19 21:42 NT-Pro-B Natriuret Pep 18521 pg/mL 03/28/19 09:50 Total Protein 7.1 g/dL (6.3-8.2) 03/28/19 09:50 Albumin 4.0 g/dL (3.5-5.0) 03/28/19 09:50 Lipase 174 U/L (23-300) 03/28/19 09:50 Microbiology 03/29/19 18:10 Leg - Left Gram Stain - Final 03/29/19 18:10 Leg - Left Wound Culture - Final Enterobacter cloacae 03/28/19 19:55 Blood Blood Culture - Preliminary No Growth after 96 hours Assessment and Plan (1) Acute exacerbation of CHF (congestive heart failure) Current Visit: Yes Status: Acute Code(s): I50.9 - HEART FAILURE, UNSPECIFIED SNOMED Code(s): 123133018 (2) Chest pain Current Visit: Yes Status: Acute Code(s): R07.9 - CHEST PAIN, UNSPECIFIED SNOMED Code(s): 37180289 (3) Cellulitis of left leg Narrative/Plan: 78-year-old male presents to Hospital increasing shortness of breath and pain and swelling redness and drainage of his left leg. Patient has a prior history of the right [id number] amputation and is somewhat concerned. This time is evidence of the extensive cellulitis on the left leg and antibiotic therapy with Ancef has been started. Local wound care with Silvadene as well as a rapid been requested. Elevation of the limb at rest. Treatment of his heart failure will help the extensive edema which will allow the antibiotic therapy to be effective. If arterial Dopplers are available to the left limb, should be considered so long-term compressive therapy can be arranged. 03/31/2019 the patient is feeling slightly better. He has been doing modestly well however culture now shows evidence of gram-negative bacilli with Enterobacter and Ancef was changed to Rocephin. Wound care with Silvadene and a wrap can be applied. There is evidence of vascular surgery evaluations with adequate flow to the left lower extremity. Elevate while he is at rest. Midline catheter and transfer to ECF as planned. 10 days of therapy and follow- up in the wound center. 04/01/2018 patient has shown some improvement. There are plans of transitioning to the extended care facility. 10 days of intravenous Rocephin have been requested for the significant infection of the limb he is feeling better with local care which is Silvadene wrap and elevation as he tolerates. He is enco uraged to have his adequate protein intake. It was noted that he did have vascular studies performed with adequate flow to the left leg which allows an walter wrap to be placed. Current Visit: Yes Status: Acute Code(s): L03.116 - CELLULITIS OF LEFT LOWER LIMB SNOMED Code(s): 453942851
[2019-04-02 06:46] LABS: Glucose,Whole Blood 206 mg/dL (75-99)
[2019-04-02] MEDS: INSULN ASP PRT/INSULIN ASPART 100 UNIT/ML 10 ML VIAL SQ SCH (07:13)
[2019-04-02] MEDS: CALCIUM ACETATE 667 MG TAB PO SCH (07:13)
[2019-04-02] MEDS: CLOPIDOGREL 75 MG TAB PO SCH (07:50)
[2019-04-02] MEDS: METOPROLOL TARTRATE 50 MG TAB PO SCH (07:50)
[2019-04-02] MEDS: ALLOPURINOL 100 MG TAB PO SCH (07:50)
[2019-04-02] MEDS: MULTIVITAMINS, THERA 1 EACH TAB PO SCH (07:51)
[2019-04-02] MEDS: FAMOTIDINE 20 MG TAB PO SCH (07:51)
[2019-04-02] MEDS: ASPIRIN 81 MG PO SCH (07:51)
[2019-04-02] MEDS: CARBIDOPA-LEVODOPA 25-100 MG 1 EACH TAB PO SCH (07:51)
[2019-04-02] MEDS: GABAPENTIN 400 MG CAP PO SCH (07:51)
[2019-04-02] MEDS: SILVER sulfADIAZINE Cream 400 GM 1 APPLIC APPLIC TOPICAL SCH (07:54)
[2019-04-02 10:12] LABS: Calcium 8.6 mg/dL (8.4-10.2)
--- NOTE | 2019-04-02 11:34 | P.PN ---
Subjective Progress Note Date: 04/02/19 This is an 78-year-old gentleman with known history of coronary artery disease with prior bypass surgery, aortic valve disease with prior aortic valve replacement, severe underlying peripheral arterial disease, diabetes, hypertension, hyperlipidemia, peripheral tibial disease for which he underwent successful balloon angioplasty of the right SFA and right popliteal and right tibial peroneal trunk in 2014 followed by a right below the knee amputation for critical limb ischemia, for which the patient has undergone arthrectomy of the left popliteal, balloon angioplasty of the left popliteal by Dr. Donald in March of last year, history also of prior CVA, Parkinson's, history of alcohol abuse but he quit approximately 8 years ago. He presents to the hospital on this occasion with symptoms of chest discomfort, he also had stated that he was more short of breath than usual. Patient does have a right below the knee amputation, and he has had significant swelling in his left lower extremity with evidence of what appears to be cellulitis. Blood pressure on arrival here 160/60, heart rate in the 80s, afebrile. Chest x-ray shows congestive heart failure, underlying infiltrate not excluded. EKG shows normal sinus rhythm with first-degree AV block and nonspecific ST-T wave changes. White blood cell count 8.6, hemoglobin 10.5, platelet count 203. Sodium 138, potassium 4.6, BUN 36 c reatinine 1.7 on admission, 40 and 1.6 this morning. Troponins 0.04, 0.05, 0.04. BNP level 14,500. At the time of my examination this morning, the patient is sitting up at bedside eating his breakfast, he denies any current chest discomfort, does state that he feels his breathing is improved as compared with yesterday. His weight is down 1 kg today. He is on 40 mg of IV Lasix 3 times a day. 03/30/2019 Patient was seen and examined this morning sitting up in the chair at bedside. Overall diuresing well, creatinine today is 2.1 up from 1.6 yesterday repeat echocardiogram with Doppler study is yet pending. Blood pressure 122/60 with a heart rate is 60, 97% on room air. 03/31/2019 Patient was examined this morning, sitting up in the chair bedside. His daughter is present this morning. He is feeling much better overall. His weight is down 4 kg today. White blood cell count 13.1, hemoglobin 10.9, platelet count 224. Sodium 144, potassium 4.1, BUN 51 and creatinine 2.3. IV Lasix will be discontinued and from tomorrow we will initiate by mouth Lasix at 60 mg twice a day. Check lytes BUN and creatinine in the morning. 04/01/2019 Patient seen and examined this morning, overall feeling well. Blood pressure 102/50 with a heart rate in the 50s, 94% on room air. 04/02/2019 Patient was seen and examined this morning, Blood pressure 132/60 with a heart rate in the 60s, 96% on room air. Sodium 142, potassium 5.0, BUN 67 and creatinine 2.5. We will continue to hold off on initiating diuretics at this point we'll continue to monitor the renal function. Objective - Vital Signs Vital signs: Vital Signs Temp 98.3 F 04/02/19 08:20 Pulse 65 04/02/19 08:20 Resp 16 04/02/19 08:20 BP 138/63 04/02/19 08:20 Pulse Ox 96 04/02/19 08:20 Intake & Output 04/01/19 04/02/19 04/02/19 18:59 06:59 18:59 Intake Total 1100 30 370 Output Total 800 Balance 300 30 370 Weight 91.4 kg 91.4 kg Intake: IV 20 30 10 Invasive Line 4 20 30 10 Oral 1080 360 Output: Urine 800 Other: Voiding Method Urinal Urinal Urinal # Voids 100 # Bowel Movements 1 - Exam PHYSICAL EXAMINATION: GENERAL: 78-year-old gentleman in no acute distress at the time of my examination HEENT: Head is atraumatic, normocephalic. Pupils equal, round. Sclera anicteric. Conjunctiva are clear. Mucous membranes of the mouth are moist. Neck is supple. There is no elevated jugular venous pressure. No carotid bruit is heard. HEART EXAMINATION: Heart S1 and S2 systolic ejection murmur is heard. CHEST EXAMINATION: Lungs reveal scattered coarse rhonchi throughout, diminished air entry to the bases bilaterally with expiratory wheezing. ABDOMEN: Soft, obese, nontender. Bowel sounds are heard. No organomegaly noted. EXTREMITIES:1+ peripheral pulses to the left lower extremity with evidence of trace to1+ peripheral edema,chronic venous stasis redness and blistering noted. . Right BKA NEUROLOGIC patient is awake, alert and oriented 3 . - Labs CBC & Chem 7: 03/31/19 06:07 04/02/19 09:22 Labs: Abnormal Lab Results - Last 24 Hours (Table) 04/01/19 04/01/19 04/02/19 Range/Units 11:46 21:01 06:45 Carbon Dioxide (22-30) mmol/L BUN (9-20) mg/dL Creatinine (0.66-1.25) mg/dL Glucose (74-99) mg/dL POC Glucose (mg/dL) 214 H 197 H 206 H (75-99) mg/dL 04/02/19 Range/Units 09:22 Carbon Dioxide 34 H (22-30) mmol/L BUN 67 H (9-20) mg/dL Creatinine 2.53 H (0.66-1.25) mg/dL Glucose 221 H (74-99) mg/dL POC Glucose (mg/dL) (75-99) mg/dL Microbiology - Last 24 Hours (Table) 03/29/19 18:10 Gram Stain - Final Leg - Left Wound Culture - Final Enterobacter cloacae 03/28/19 19:55 Blood Culture - Preliminary Blood No Growth after 96 hours Assessment and Plan Plan: Assessment and plan #1 systolic congestive heart failure acute on chronic #2 known history of coronary artery disease with prior coronary artery bypass grafting surgery and aortic valve replacement #3 PVD and PAD, patient had undergone angioplasty of the right SFA and right popliteal and right tibial peroneal trunk in 2014 followed by a right below the knee amputation, subsequent to that in March of last year he underwent arthrectomy and balloon angioplasty of the left popliteal #4 hypertension #5 hyperlipidemia #6 diabetes #7 prior CVA #8 Parkinson's #9 acute on chronic renal failure #10 anemia #11 episode of chest discomfort, EKG shows normal sinus rhythm with ST-T wave changes noted in the inferior lateral leads. Mild troponin abnormality, could reflect acute coronary syndrome however we will continue with maximum medical therapy at this time. Plan Patient may be discharged home today from cardiology's perspective, we'll recommend to hold the diuretics for 48 hours then resume Demadex at 60 mg daily. Check lytes BUN and creatinine as an outpatient. DNP note has been reviewed, I agree with a documented findings and plan of care. Patient was seen and examined.
[2019-04-02 11:37] LABS: Glucose,Whole Blood 353 mg/dL (75-99)
[2019-04-02 14:33] VITALS: BP 130/60; PULSE 55; TEMP 98.1
--- NOTE | 2019-04-06 09:56 | CDI ---
Documentation Clarification Form Date: 04/06/2019 From: Yelitza Garcia Phone: If questions call Deneen Esquivel @ [phone], Hours-8:30 am & 5 pm Robina Mckeon Admit Date: 03/30/2019 8:10:00 AM Patient Name: Herson Ortiz Visit Number: [id number] Discharge Date: 04/02/2019 3:17:00 PM ATTENTION: The Clinical Documentation Specialists (CDI) and [facility] Coding Staff appreciate your assistance in clarifying documentation. Please respond to the clarification below the line at the bottom and electronically sign. The CDI & [facility] Coding staff will review the response and follow-up if needed. Please note: Queries are made part of the Legal Health Record. If you have any questions, please contact the author of this message via ITS. Dr. Al Zhou The patient has poorly controlled Type II diabetes, as indicated on progress note 03/31.. POC Glucose: 301, 220, 103, 150, 154, 93, 86, 246, 312, 340, 177, 66, 65, 108, 236, 228, 165, 96, 78, 76, 214, 92, 197, 206, 353 Glucose: 148, 231, 86, 65, 59, 221 A1c: 10.6 Treatment: Novolog Per [facility] 2016 - query the provider for clarification whether the patient has hyperglycemia or hypoglycemia so that the appropriate code may be reported - uncontrolled diabetes indicates that the patient's blood sugar is not at an acceptable level, because it is either too high or too low. In order to capture the severity of Illness and necessary documentation specificity, please clarify if Type 2 uncontrolled diabetes is: Hyperglycemia Hypoglycemia Other, please specify Unable to Determine Please continue to document in your progress notes and discharge summary in order to capture severity of illness and risk of mortality. Include clinical findings that support your diagnosis. hyperglycemia as well as a couple episodes of hypoglycemia in the mornings MTDD
[2019-04-18] MEDS ORDERED: ERGOCALCIFEROL 50,000 UNIT CAP PO SCH (09:00)
== END 2019-04-02 15:17 | DRG 280 ==
LOC: EC 09:35 → 3SCARD 11:29 → OBSVTOIN 03-30 08:10
PROVIDERS: ADMIT Hospitalist; ATTEND Hospitalist
PROC: 05HD33Z Insertion of Infusion Device into Right Cephalic Vein, Percutaneous Approach (ICD-10-PCS; principal; 2019-03-30 12:40)
PROC: 05HF33Z Insertion of Infusion Device into Left Cephalic Vein, Percutaneous Approach (ICD-10-PCS; 2019-04-01 09:30)
DX: I13.0 Hypertensive heart and chronic kidney disease with heart failure and stage 1 through stage 4 chronic kidney disease, or unspecified chronic kidney disease (principal); I21.4 Non-ST elevation (NSTEMI) myocardial infarction; I50.23 Acute on chronic systolic (congestive) heart failure; N17.9 Acute kidney failure, unspecified; L03.116 Cellulitis of left lower limb; E11.51 Type 2 diabetes mellitus with diabetic peripheral angiopathy without gangrene; E11.22 Type 2 diabetes mellitus with diabetic chronic kidney disease; I27.20 Pulmonary hypertension, unspecified; E11.65 Type 2 diabetes mellitus with hyperglycemia; E11.649 Type 2 diabetes mellitus with hypoglycemia without coma; G20 Parkinson's disease; N18.3 Chronic kidney disease, stage 3 (moderate); D64.9 Anemia, unspecified; I87.8 Other specified disorders of veins; E78.5 Hyperlipidemia, unspecified; I44.0 Atrioventricular block, first degree; I25.10 Atherosclerotic heart disease of native coronary artery without angina pectoris; I25.2 Old myocardial infarction; H91.90 Unspecified hearing loss, unspecified ear; E66.9 Obesity, unspecified; Z68.32 Body mass index [BMI] 32.0-32.9, adult; F10.11 Alcohol abuse, in remission; Z79.82 Long term (current) use of aspirin; Z79.02 Long term (current) use of antithrombotics/antiplatelets; Z79.4 Long term (current) use of insulin; Z79.899 Other long term (current) drug therapy; Z95.1 Presence of aortocoronary bypass graft; Z86.73 Personal history of transient ischemic attack (TIA), and cerebral infarction without residual deficits; Z87.39 Personal history of other diseases of the musculoskeletal system and connective tissue; Z89.511 Acquired absence of right leg below knee; Z95.2 Presence of prosthetic heart valve; Z99.3 Dependence on wheelchair; Z98.42 Cataract extraction status, left eye; Z98.41 Cataract extraction status, right eye; Z82.49 Family history of ischemic heart disease and other diseases of the circulatory system; Z83.3 Family history of diabetes mellitus
CPT/HCPCS: 36410; 36415; 71046; 76937; 80048; 80053; 82550; 83036; 83690; 83735; 83880; 84484; 85025; 85610; 85730; 87040; 87070; 87077; 87186; 87205; 93005; 93306; 96374; 99285

== ENCOUNTER 2019-04-12 22:16 | Emergency (ER) | payer MEDICARE ==
[2019-04-12 22:28] LABS: Glucose,Whole Blood 98 mg/dL (75-99)
--- NOTE | 2019-04-12 22:54 | ED ---
Recheck HPI - General Chief Complaint: Recheck/Abnormal Lab/Rx Stated Complaint: Low Blood Sugar Time Seen by Provider: 04/12/19 22:18 Source: EMS, old records reviewed Mode of arrival: EMS Limitations: altered mental status - History of Present Illness Initial Comments: This patient is an 78-year-old man who was [facility] here [facility] to have reevaluation following an episode of [facility] the jail. The patient reportedly had a blood sugar that was somewhat elevated was checked and he received his evening dose of insulin. He was read later rechecked and blood sugar was found to be 49 he was therefore given a glucagon injection and had received oral glucose. The patient's subsequent recheck showed blood sugar of 133 followed by 112 and they became concerned about this decrease and sent him here. I patient's baseline is reportedly oriented 1. MD Complaint: abnormal lab -: hour(s) Returns Today for: other (Hypoglycemia) Symptoms Since Prior Visit: no new symptoms Associated Symptoms: none - Related Data Home Medications Medication Instructions Recorded Confirmed Aspirin 325 mg PO DAILY 07/29/15 04/12/19 Carbidopa-Levodopa 25-100 mg 1 tab PO TID@0700,1300,1900 07/29/15 04/12/19 [Sinemet 25-100 mg] Allopurinol [Zyloprim] 100 mg PO DAILY 07/08/18 04/12/19 Clopidogrel [Plavix] 75 mg PO DAILY 07/08/18 04/12/19 Ergocalciferol (Vitamin D2) 50,000 unit PO Q30D 07/08/18 04/12/19 [Vitamin D2] Multivitamin [Men's Multi-Vitamin] 1 tab PO HS 07/08/18 04/12/19 Calcitriol [Rocaltrol] 0.25 mcg PO TU 11/19/18 04/12/19 Calcium Acetate [PhosLo] 667 mg PO DAILY 11/19/18 04/12/19 Acetaminophen Tab [Tylenol Tab] 500 mg PO Q6H PRN 04/12/19 04/12/19 Atorvastatin [Lipitor] 80 mg PO HS 04/12/19 04/12/19 Gabapentin [Neurontin] 400 mg PO TID@0700,1300,1900 04/12/19 04/12/19 INSULIN ASPART (NovoLOG) [NovoLOG See Protocol SQ ACHS 04/12/19 04/12/19 (formulary)] Menthol-Zinc Oxide Oint 1 applic TOPICAL TID 04/12/19 04/12/19 [Calmoseptine Oint] Metoprolol Succinate [Toprol XL] 25 mg PO DAILY 04/12/19 04/12/19 Pantoprazole Sodium [Protonix] 40 mg PO DAILY 04/12/19 04/12/19 SILVER sulfADIAZINE Cream 1 applic TOPICAL DAILY 04/12/19 04/12/19 [Silvadene 1% Cream] cefTRIAXone [Rocephin] 1 gm IVPB DAILY@0500 04/12/19 04/12/19 Previous Rx's Medication Instructions Recorded Torsemide [Demadex] 60 mg PO DAILY #30 tablet 03/31/19 Insuln Asp Prt/Insulin Aspart 35 unit SQ AC-BID vial 04/01/19 [NovoLOG MIX 70-30 VIAL] Allergies Allergy/AdvReac Type Severity Reaction Status Date / Time No Known Allergies Allergy Verified 04/12/19 22:33 Review of Systems ROS Statement: Those systems with pertinent positive or pertinent negative responses have been documented in the HPI. ROS Other: All systems not noted in ROS Statement are negative. 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 4 yrs. ago,aortogram Past Anesthesia/Blood Transfusion Reactions: No Reported Reaction Additional Past Anesthesia/Blood Transfusion Reaction / Comment(s): no hx blood transfusion Past Psychological History: No Psychological Hx Reported Smoking Status: Never smoker - Past Family History Father Family Medical History: Coronary Artery Disease (CAD) Additional Family Medical History / Comment(s): Father had CABG. He at age 93yrs. Mother Family Medical History: Diabetes Mellitus Additional Family Medical History / Comment(s): Mother at age 83 yrs. General Exam Limitations: altered mental status General appearance: other (Patient is sleeping but arousable to noxious stimuli) Head exam: Present: atraumatic, normocephalic Eye exam: Present: normal appearance Neck exam: Absent: tenderness, meningismus Respiratory exam: Present: normal lung sounds bilaterally. Absent: respiratory distress, wheezes, rales, rhonchi, stridor Cardiovascular Exam: Present: regular rate, bradycardia (Rate 56 at my exam), systolic murmur (Grade 4 systolic ejection murmur, loudest at the right sternal border, consistent with aortic stenosis). Absent: rubs, gallop GI/Abdominal exam: Present: soft. Absent: distended, tenderness, guarding, rebound Extremities exam: Present: other (Right leg amputation.) Neurological exam: Present: other (Patient is somnolent but does arouse to noxious stimuli. Localizes pain. ) Skin exam: Present: warm, dry, intact, erythema (Left lower leg, consistent with the cellulitis he is being treated for) Course Vital Signs 04/12/19 04/12/19 04/13/19 22:28 22:35 00:37 Temperature 98.0 F Pulse Rate 55 L 52 L 49 L Respiratory 20 17 16 Rate Blood Pressure 101/74 145/52 133/58 O2 Sat by Pulse 100 99 100 Oximetry 04/13/19 04/13/19 04/13/19 03:00 04:15 05:45 Temperature Pulse Rate 52 L 60 59 L Respiratory 18 18 17 Rate Blood Pressure 123/47 109/55 115/57 O2 Sat by Pulse 97 98 96 Oximetry 04/13/19 06:37 Temperature 97.8 F Pulse Rate Respiratory Rate Blood Pressure O2 Sat by Pulse Oximetry Medical Decision Making - Medical Decision Making Patient is an 78-year-old man sent for evaluation after a hypoglycemic episode at the [facility]. His blood sugar followed in the department he did have one further episode of hypoglycemia requiring dextrose. He was followed after that and blood sugar had stabilized. The patient is alert and responsive at his baseline. He did tolerate oral intake, requesting a chicken salad sandwich. - Lab Data Result diagrams: 04/12/19 22:48 04/12/19 22:48 Lab Results 04/12/19 04/12/19 04/12/19 Range/Units 22:27 22:48 22:48 WBC 14.2 H (3.8-10.6) k/uL RBC 3.39 L (4.30-5.90) m/uL Hgb 9.9 L (13.0-17.5) gm/dL Hct 33.0 L (39.0-53.0) % MCV 97.2 (80.0-100.0) fL MCH 29.2 (25.0-35.0) pg MCHC 30.1 L (31.0-37.0) g/dL RDW 16.2 H (11.5-15.5) % Plt Count 152 (150-450) k/uL Neutrophils % 88 % Lymphocytes % 4 % Monocytes % 5 % Eosinophils % 1 % Basophils % 0 % Neutrophils # 12.5 H (1.3-7.7) k/uL Lymphocytes # 0.6 L (1.0-4.8) k/uL Monocytes # 0.7 (0-1.0) k/uL Eosinophils # 0.2 (0-0.7) k/uL Basophils # 0.0 (0-0.2) k/uL Hypochromasia Moderate Anisocytosis Slight Macrocytosis Slight Sodium 143 (137-145) mmol/L Potassium 4.6 (3.5-5.1) mmol/L Chloride 100 (98-107) mmol/L Carbon Dioxide 33 H (22-30) mmol/L Anion Gap 10 mmol/L BUN 103 H* (9-20) mg/dL Creatinine 2.98 H (0.66-1.25) mg/dL Est GFR (CKD-EPI)AfAm 22 (>60 ml/min/1.73 sqM) Est GFR (CKD-EPI)NonAf 19 (>60 ml/min/1.73 sqM) Glucose 87 (74-99) mg/dL POC Glucose (mg/dL) 98 (75-99) mg/dL POC Glu [employer] Analyst ID Aleida Barksdale Calcium 8.5 (8.4-10.2) mg/dL Acetone, Qual Negative (Negative) 04/13/19 04/13/19 04/13/19 Range/Units 02:58 03:23 04:34 WBC (3.8-10.6) k/uL RBC (4.30-5.90) m/uL Hgb (13.0-17.5) gm/dL Hct (39.0-53.0) % MCV (80.0-100.0) fL MCH (25.0-35.0) pg MCHC (31.0-37.0) g/dL RDW (11.5-15.5) % Plt Count (150-450) k/uL Neutrophils % % Lymphocytes % % Monocytes % % Eosinophils % % Basophils % % Neutrophils # (1.3-7.7) k/uL Lymphocytes # (1.0-4.8) k/uL Monocytes # (0-1.0) k/uL Eosinophils # (0-0.7) k/uL Basophils # (0-0.2) k/uL Hypochromasia Anisocytosis Macrocytosis Sodium (137-145) mmol/L Potassium (3.5-5.1) mmol/L Chloride (98-107) mmol/L Carbon Dioxide (22-30) mmol/L Anion Gap mmol/L BUN (9-20) mg/dL Creatinine (0.66-1.25) mg/dL Est GFR (CKD-EPI)AfAm (>60 ml/min/1.73 sqM) Est GFR (CKD-EPI)NonAf (>60 ml/min/1.73 sqM) Glucose (74-99) mg/dL POC Glucose (mg/dL) 50 L 163 H 119 H (75-99) mg/dL POC Glu [employer] Analyst ID Feliz, Rosmery Piper, Aleida Cortez Calcium (8.4-10.2) mg/dL Acetone, Qual (Negative) 04/13/19 04/13/19 Range/Units 06:25 07:38 WBC (3.8-10.6) k/uL RBC (4.30-5.90) m/uL Hgb (13.0-17.5) gm/dL Hct (39.0-53.0) % MCV (80.0-100.0) fL MCH (25.0-35.0) pg MCHC (31.0-37.0) g/dL RDW (11.5-15.5) % Plt Count (150-450) k/uL Neutrophils % % Lymphocytes % % Monocytes % % Eosinophils % % Basophils % % Neutrophils # (1.3-7.7) k/uL Lymphocytes # (1.0-4.8) k/uL Monocytes # (0-1.0) k/uL Eosinophils # (0-0.7) k/uL Basophils # (0-0.2) k/uL Hypochromasia Anisocytosis Macrocytosis Sodium (137-145) mmol/L Potassium (3.5-5.1) mmol/L Chloride (98-107) mmol/L Carbon Dioxide (22-30) mmol/L Anion Gap mmol/L BUN (9-20) mg/dL Creatinine (0.66-1.25) mg/dL Est GFR (CKD-EPI)AfAm (>60 ml/min/1.73 sqM) Est GFR (CKD-EPI)NonAf (>60 ml/min/1.73 sqM) Glucose (74-99) mg/dL POC Glucose (mg/dL) 111 H 108 H (75-99) mg/dL POC Glu [employer] Analyst ID BarksdaleAleida Meredith Calcium (8.4-10.2) mg/dL Acetone, Qual (Negative) Disposition Clinical Impression: Hypoglycemia Disposition: HOME SELF-CARE Condition: Fair Instructions (If sedation given, give patient instructions): Hypoglycemia in a Person with Diabetes (ED) Is patient prescribed a controlled substance at d/c from ED?: No Referrals: Armaan Hauser MD [Primary Care Provider] - 1-2 days
[2019-04-12 23:23] LABS: Anisocytosis Slight; Basophils % (A) 0 %; Eosinophils # (A) 0.2 k/uL (0-0.7); Eosinophils % (A) 1 %; HGB 9.9 gm/dL (13.0-17.5); Hypochromasia Moderate; Lymphocytes # (A) 0.6 k/uL (1.0-4.8); Lymphocytes % (A) 4 %; MCH 29.2 pg (25.0-35.0); MCHC 30.1 g/dL (31.0-37.0); MCV 97.2 fL (80.0-100.0); Macrocytosis Slight; Mean Platelet Volume 9.3; Monocytes # (A) 0.7 k/uL (0-1.0); Monocytes % (A) 5 %; Neutrophils # (A) 12.5 k/uL (1.3-7.7); Neutrophils % (A) 88 %; Platelet Count 152 k/uL (150-450); RBC 3.39 m/uL (4.30-5.90); RDW 16.2 % (11.5-15.5); WBC 14.2 k/uL (3.8-10.6)
[2019-04-12 23:53] LABS: African American GFR (CKD) 22 (>60 ml/min/1.73 sqM); Anion Gap 10 mmol/L; Calcium 8.5 mg/dL (8.4-10.2); Carbon Dioxide 33 mmol/L (22-30); Chloride 100 mmol/L (98-107); Glucose 87 mg/dL (74-99); Potassium 4.6 mmol/L (3.5-5.1); Sodium 143 mmol/L (137-145)
[2019-04-13 00:04] LABS: Blood Urea Nitrogen 103 mg/dL (9-20)
[2019-04-13] MEDS ORDERED: DEXTROSE 50% SYRINGE 50 ML IVP STA (03:00)
[2019-04-13 03:02] LABS: Glucose,Whole Blood 50 mg/dL (75-99)
[2019-04-13 03:35] LABS: Glucose,Whole Blood 163 mg/dL (75-99)
[2019-04-13 04:36] LABS: Glucose,Whole Blood 119 mg/dL (75-99)
[2019-04-13 05:47] VITALS: BP 115/57; PULSE 59; RESP 17
[2019-04-13 06:27] LABS: Glucose,Whole Blood 111 mg/dL (75-99)
[2019-04-13 06:38] VITALS: TEMP 97.8
[2019-04-13 07:41] LABS: Glucose,Whole Blood 108 mg/dL (75-99)
== END 2019-04-13 08:29 | disposition home or self-care (01) ==
LOC: EC 22:16
DX: E11.649 Type 2 diabetes mellitus with hypoglycemia without coma (principal); I10 Essential (primary) hypertension; E78.5 Hyperlipidemia, unspecified; G20 Parkinson's disease; Z79.02 Long term (current) use of antithrombotics/antiplatelets; Z79.4 Long term (current) use of insulin; Z79.82 Long term (current) use of aspirin; Z79.899 Other long term (current) drug therapy; Z86.73 Personal history of transient ischemic attack (TIA), and cerebral infarction without residual deficits; Z95.1 Presence of aortocoronary bypass graft; Z95.2 Presence of prosthetic heart valve; Z89.511 Acquired absence of right leg below knee
CPT/HCPCS: 36415; 80048; 82009; 85025; 96374; 99284